=== PATIENT | female | born 1955 | race Caucasian/White ===

== ENCOUNTER 2019-12-03 13:10 | Inpatient (IN) | payer MEDICARE, SELFPAY ==
--- NOTE | ~2019-12-03 | XR_ITS ---
EXAMINATION: XR abdomen/kub 1V DATE: 12/18/2019 05:29 INDICATION: Small bowel obstruction. TECHNIQUE: A supine view of the abdomen was obtained. COMPARISON: Abdomen single view 12/17/2019 FINDINGS: There are multiple dilated loops of small bowel. The colon is decompressed. There is a perc utaneous drain in the pelvis. There are suture anchors in the pubic bones. IMPRESSION: 1. Dilated small bowel, consistent with small bowel obstruction. Reviewed, dictated and finalized at location A. COMMANDER
--- NOTE | ~2019-12-03 | XR_ITS ---
EXAMINATION: XR abdomen/kub 1V INDICATION: Small bowel obstruction TECHNIQUE: Supine view of the abdomen is obtained. COMPARISON: 12/08/2019 FINDINGS: The nasogastric tube is in the stomach. Enteric contrast material from small bowel follow-t hrough is seen and appears to remain within the small bowel. No significant colonic contrast is ident ified. There are multiple dilated loops of small bowel. Foci of free intraperitoneal gas persist. IMPRESSION: 1. Small bowel obstruction. 2. Persistent free intraperitoneal gas. Reviewed, dictated and finalized at location A. SAGE INSTRUCTOR
--- NOTE | ~2019-12-03 | XR_ITS ---
XR chest 1V portable DATE: 12/03/2019 16:06 INDICATION: Cough, shortness of breath, abdominal pain TECHNIQUE: Portable upright AP chest on 12/03/2019 at 1554 hours COMPARISON: 11/29/2021 view chest FINDINGS: A nasogastric tube is present in the proximal stomach, the proximal port approximately 3.5 cm distal to the diaphragmatic hiatus. Normal heart size. There is aortic calcification and unfolding. No hilar or mediastinal enlargement i s evident. There is prominent elevation the right leaf of the diaphragm and/or subpulmonic pleural effusion on t he right, new since 11/29/2019. There are bilateral lower lung infiltrates and/or atelectasis, also new since 11/29/2019. Osteopenia. IMPRESSION: New elevation of right leaf of diaphragm and/or subpulmonic pleural effusion and new bila teral lower lung infiltrates or atelectasis since 11/29/2019 NG tube in proximal stomach Reviewed, dictated and finalized at location B. RVENTIONAL RADIOLOGY TECHNOLOGIST IMPRESSION: New elevation of right leaf of diaphragm and/or subpulmonic pleural effusion and new bilateral lower lung infiltrates or atelectasis since 11/29/19 20 NG tube in proximal stomach
--- NOTE | ~2019-12-03 | CT_ITS ---
EXAMINATION: CT abdomen pelvis w con INDICATION: Cough and lower abdominal pain TECHNIQUE: Computed tomographic images of the abdomen and pelvis were obtained after the administrati on of 100 cc of Omnipaque 350 intravenous contrast. The dose-length product (DLP) was 324.56 mGy-cm. Automated exposure control and iterative reconstruction technique were employed. COMPARISON: None available FINDINGS: There is atelectasis of the visualized lung bases. The heart size is normal. There is a lar ge volume of free intraperitoneal gas predominantly in the upper abdomen. The liver, spleen, pancreas , gallbladder, and adrenal glands are normal. The kidneys are unremarkable. No pathologically enlarge d abdominal or pelvic lymph nodes are identified. There are multiple mildly dilated loops of small shayne wel with a relative transition point in the terminal ileum, which is decompressed. There is gas and s tool within the colon. A small volume of pelvic ascites is noted which also contains gas but to a les ser degree than that of the upper abdomen. Colonic diverticulosis is present without evidence of dive rticulitis. There is severe lumbar spondylosis. IMPRESSION: 1. Free intraperitoneal gas, consistent with perforated viscus. Distribution of gas is suspicious for perforated ulcer of the stomach or duodenum. Surgical evaluation is recommended. 2. Dilated small bowel with relative transition point in the terminal ileum which could reflect ileus or partial obstruction. These findings and recommendations were discussed with Dr. Oumou Jordan MD in the Emergency Departm ent at 1500 hours on 12/03/2019. Reviewed, dictated and finalized at location A. EY RESEARCH MANAGER IMPRESSION: 1. Free intraperitoneal gas, consistent with perforated viscus. Distribution of gas is suspicious for perforated ulcer of the stomach or duodenum. Surgical ev aluation is recommended. 2. Dilated small bowel with relative transition point in the terminal ileum whi ch could reflect ileus or partial obstruction. These findings and recommendations were discussed with Dr. Oumou Jordan MD in the Emergency Department at 1500 hours on 12/03/2019.
--- NOTE | ~2019-12-03 | XR_ITS ---
XR abdomen/kub 1V DATE: 12/11/2019 05:38 INDICATION: Small bowel obstruction TECHNIQUE: Portable supine AP view on 12/11/2019 at 0530 hours COMPARISON: 12/10/2019 KUB at 0707 hours FINDINGS: Since the prior examination the nasogastric tube has been advanced into the distal stomach, the proximal port 3.3 cm distal to the diaphragmatic hiatus. Prominent proximal small bowel gaseous distention is noted, with relative evacuation of the distal shayne wel, consistent with clinical diagnosis of small bowel obstruction. Scoliosis and degenerative changes of the thoracic and particularly lumbar spine. IMPRESSION: NG tube in distal stomach Dilated gas distended small bowel consistent with small bowel obstruction Reviewed, dictated and finalized at Location A. Reviewed, dictated and finalized at location A. DENTURED APPRENTICE
--- NOTE | ~2019-12-03 | XR_ITS ---
EXAMINATION: XR UGI water soluble w sbs DATE: 12/08/2019 16:20 INDICATION: Abdominal distention. Vomiting. TECHNIQUE: The patient drank water-soluble contrast. Fluoroscopy of the esophagus, stomach, and small bowel was performed. Fluoroscopy exposure time was 1.2 minutes. Radiographs of the abdomen were obta ined. The total number of images was 484. COMPARISON: CT abdomen and pelvis 12/03/2019 FINDINGS: UPPER GASTROINTESTINAL SERIES: There is no mass or stricture of the esophagus. Esophageal motility is normal. There is no hiatal her jez. The stomach shows a normal folding pattern. SMALL BOWEL SERIES: There are multiple dilated loops of small bowel. There was no contrast in the colon at 7 hours. The c olon is normal in caliber. Again seen are foci of free intraperitoneal gas. IMPRESSION: 1. Small bowel obstruction. 2. Free intraperitoneal gas, most likely from perforated sigmoid diverticulitis. Reviewed, dictated and finalized at location A. GLAZER IMPRESSION: 1. Small bowel obstruction. 2. Free intraperitoneal gas, most likely from perforated sigmoid diverticulitis .
--- NOTE | ~2019-12-03 | XR_ITS ---
EXAMINATION: XR abdomen NG/feed tube insert DATE: 12/08/2019 17:25 INDICATION: Nasogastric tube placement. TECHNIQUE: An upright view of the abdomen was obtained. COMPARISON: Small bowel series 12/08/2019 FINDINGS: The nasogastric tube tip is in the stomach. There are multiple dilated loops of small bowel containing oral contrast. The lower abdomen is excluded. There is free intraperitoneal gas. There ar e airspace opacities at the lung bases. IMPRESSION: 1. Nasogastric tube tip in the stomach. 2. Dilated small bowel, consistent with small bowel obstruction. 3. Airspace opacities at the lung bases, consistent with atelectasis versus pneumonia. 4. Free intraperitoneal gas, most likely from perforated sigmoid diverticulitis. Reviewed, dictated and finalized at location A. HOUSE SUPERVISOR 3RD SHIFT IMPRESSION: 1. Nasogastric tube tip in the stomach. 2. Dilated small bowel, consistent with small bowel obstruction. 3. Airspace opacities at the lung bases, consistent with atelectasis versus pne umonia. 4. Free intraperitoneal gas, most likely from perforated sigmoid diverticulitis .
--- NOTE | ~2019-12-03 | XR_ITS ---
EXAMINATION: XR abdomen/kub 1V INDICATION: Small bowel obstruction TECHNIQUE: Supine view of the abdomen is obtained. COMPARISON: 12/09/2019 FINDINGS: There are persistently dilated loops of small bowel in the midabdomen. Enteric contrast mat erial from recent small bowel follow-through is now seen in the colon to the level of the rectum. The re are tiny foci of gas in the pelvis which have not significantly changed. There is elevation of the right hemidiaphragm. The nasogastric tube is seen in the distal esophagus approximately 5 cm above t he gastroesophageal junction. IMPRESSION: 1. Persistently dilated loops of small bowel with passage of enteric contrast to the colon, consisten t with ileus versus partial obstruction. 2. Nasogastric tube in the distal esophagus. Recommend advancing at least 10 cm. 3. Tiny foci of gas in the pelvis, consistent with perforated diverticulitis. Reviewed, dictated and finalized at location A. CUTTER IMPRESSION: 1. Persistently dilated loops of small bowel with passage of enteric contrast t o the colon, consistent with ileus versus partial obstruction. 2. Nasogastric tube in the distal esophagus. Recommend advancing at least 10 cm . 3. Tiny foci of gas in the pelvis, consistent with perforated diverticulitis.
--- NOTE | ~2019-12-03 | XR_ITS ---
EXAMINATION: XR abdomen/kub 1V EXAM DATE: 12/07/2019 14:58 INDICATION: Emesis. Perforated diverticulitis, follow-up pneumoperitoneum. TECHNIQUE: Frontal projection(s) of the abdomen for interpretation. Comparison is made to prior exami nation from 12/03. FINDINGS: There is severe jejunal distention, significantly regressed compared to prior study. Could be reactive ileus or small bowel obstruction. Previously seen feeding tube is no longer identified. There is advanced lumbar spondylosis, mild to moderate scoliosis. Can't confidently evaluate for free intraperitoneal gas on supine images. IMPRESSION: Worsening, severely dilated jejunum; ileus or small bowel obstruction. Consider nasogastr ic tube placement. Reviewed, dictated and finalized at location A. R REPLACER IMPRESSION: Worsening, severely dilated jejunum; ileus or small bowel obstructi on. Consider nasogastric tube placement.
--- NOTE | ~2019-12-03 | XR_ITS ---
EXAMINATION: XR abdomen/kub 1V DATE: 12/17/2019 05:46 INDICATION: Small bowel obstruction. TECHNIQUE: A supine view of the abdomen on 2 radiographs was obtained. COMPARISON: Abdomen radiographs 12/16/2019 FINDINGS: There are multiple dilated loops of small bowel. The colon is normal in caliber. A drain ov erlies the pelvis. There are suture anchors in the pubic bones. IMPRESSION: 1. Persistently dilated small bowel, consistent with small bowel obstruction. Reviewed, dictated and finalized at location A. HEALTH CARE WORKER
--- NOTE | ~2019-12-03 | CT_ITS ---
EXAMINATION: CT abdomen pelvis w con EXAM DATE: 12/11/2019 09:34 INDICATION: Low abdominal pain, perforated diverticulitis. Small bowel obstruction. Leukocytosis. TECHNIQUE: Spiral CT of the abdomen and pelvis was performed following intravenous injection of 100 m L Omnipaque 350. Axial, coronal and sagittal images were reviewed. The dose-length product (DLP) fo r this examination was 397.08 mGy-cm. The exposure was tailored according to patient size (auto mA e xposure control), and iterative reconstruction (ASIR) was used as additional dose reduction technique . Comparison is made to prior examination from 12/03/2019. FINDINGS: There is feeding tube in expected position. The liver, spleen, adrenal glands and pancreas are unremarkable. Gallbladder is unremarkable. No biliary obstruction. Portal and splenic veins a re patent. Kidneys enhance symmetrically. There is no hydronephrosis. The uterus is not identifie d and has likely been surgically resected. The bladder is unremarkable. There is no retroperitoneal or pelvic lymphadenopathy. There is irregular shaped abscess, multiple lobulations in the pouch of Conrad, overall deep pelvic region measuring about 7 cm in diameter. Could be amenable to percutaneous right transgluteal pigtail catheter placement for drainage. Gas and fluid within this and within other fingerlike projections e xtending more anteriorly. There is severe edema, inflammation of the small bowel wall passing adjacen t to this abscess causing narrowing, small bowel obstruction. Most of the contrast administered with small bowel series 12/08/2019 remains within the small bowel, but there is also contrast which has mad e it to the colon. The colon is essentially collapsed, decompressed. There is moderate sigmoid divert iculosis. Previously seen free intraperitoneal gas has resolved. Normal appendix. There has been interval development of small right, trace left pleural effusions. There is segmental right basilar atelectasis, subsegmental left basilar atelectasis. There are no osteoblastic or osteo lytic lesions identified. Moderate thoracolumbar spondylosis. IMPRESSION: 1. Pelvic abscess, inflamed adjacent small bowel loops causing small bowel obstruction with only sma ll amount of contrast from yesterday's small bowel exam making it to collapsed colon. Would be amenab le to transgluteal percutaneous drainage. 2. Small right, trace left pleural effusions. Reviewed, dictated and finalized at location B. TAILER IMPRESSION: 1. Pelvic abscess, inflamed adjacent small bowel loops causing small bowel obs truction with only small amount of contrast from yesterday's small bowel exam m aking it to collapsed colon. Would be amenable to transgluteal percutaneous cole inage. 2. Small right, trace left pleural effusions.
--- NOTE | ~2019-12-03 | XR_ITS ---
EXAMINATION: XR abdomen/kub 1V DATE: 12/16/2019 06:02 INDICATION: Small bowel obstruction. TECHNIQUE: A supine view of the abdomen on 2 radiographs was obtained. COMPARISON: Chest single view 12/14/2019 FINDINGS: There are multiple dilated loops of small bowel. The colon is decompressed. There is a drai n in the pelvis. The nasogastric tube tip is in the stomach. There are suture anchors in the pubic shayne junaid. IMPRESSION: 1. Persistently dilated small bowel, consistent with small bowel obstruction. Reviewed, dictated and finalized at location A. R STRIPPER
--- NOTE | ~2019-12-03 | XR_ITS ---
XR abdomen/kub 1V 12/14/2019 06:17 Indication: Small bowel obstruction Procedure: KUB Comparison: Comparison to multiple prior studies sequentially, with oldest reviewed study dated 12/11. Findings: NG tube in the stomach. There are dilated small bowel loops located centrally in the abdome n, compatible with obstruction. There is a drainage catheter overlying the pelvis. Colonic diverticul a noted. Impression: 1: Persistent dilated small bowel, compatible with obstruction. No significant change. Reviewed, dictated and finalized at location A. ETING SPECIALIST Impression: 1: Persistent dilated small bowel, compatible with obstruction. No significant change.
--- NOTE | ~2019-12-03 | XR_ITS ---
EXAMINATION: XR abdomen/kub 1V DATE: 12/12/2019 13:15 INDICATION: Small bowel obstruction. TECHNIQUE: A supine view of the abdomen was obtained. COMPARISON: Abdomen radiograph 12/12/2019 FINDINGS: There are multiple dilated loops of small bowel. The colon is decompressed. There are diver ticula of the colon. The nasogastric tube tip is in the stomach. A drain overlies the pelvis. There a re suture anchors in the pubic bones. IMPRESSION: 1. Persistently dilated small bowel, consistent with small bowel obstruction. Reviewed, dictated and finalized at location A. VE DIRECTORY ADMINISTRATOR
--- NOTE | ~2019-12-03 | XR_ITS ---
EXAMINATION: XR UGI water soluble w sbs EXAM DATE: 12/15/2019 13:02 INDICATION: Small bowel obstruction. Pelvic abscess, dilated small bowel loops. TECHNIQUE: Water-soluble upper GI examination was performed. The DAP for this procedure was 18 Gycm 2. Correlation is made to CT 12/11/2019. FINDINGS: Total of 400 mL Omnipaque 350 solution was injected through the nasogastric tube confirmed in place prior to procedure. Dairy Clerk image also demonstrates right-sided transgluteal pelvic drain. Unremarkable stomach. At 30 minutes some contrast is identified within the proximal part of mildly di lated jejunum. At 1 hours time moderately to severely dilated jejunum and proximal ileum also opacifi ed. At the 1.5 and 2 hour images there is further opacification these distended loops. On the three-h our image some normal calibered distal ileum identified and contrast throughout the colon to the rect osigmoid. Patient tolerated the exam well, did not become nauseated with stomach being distended from contrast. IMPRESSION: Moderate to severe mid small bowel dilation with mildly delayed transit time of about 2. 5 hours. Ileus and/or partial obstruction. Reviewed, dictated and finalized at location A. OR WEB SERVICES DEVELOPER IMPRESSION: Moderate to severe mid small bowel dilation with mildly delayed tr ansit time of about 2.5 hours. Ileus and/or partial obstruction.
--- NOTE | ~2019-12-03 | XR_ITS ---
EXAMINATION: XR abdomen NG/feed tube insert EXAM DATE: 12/03/2019 16:05 INDICATION: Feeding tube placement. TECHNIQUE: Frontal projection(s) of the abdomen for interpretation. There is no prior study for della smith. FINDINGS: There is free intraperitoneal gas below the right hemidiaphragm. Feeding tube tip, side-por t project over gastric cardia, expected location. Multiple loops of moderately distended air-filled s mall bowel are present. There is some bibasilar linear airspace disease. Contrast in the renal collec ting systems. There is no organomegaly. There are bony degenerative changes. IMPRESSION: 1. Feeding tube overlying expected position. 2. Free intraperitoneal gas. 3. Moderately dilated small bowel. Reviewed, dictated and finalized at location A. ON GIN YARD SUPERVISOR
--- NOTE | ~2019-12-03 | XR_ITS ---
EXAMINATION: XR abdomen/kub 1V DATE: 12/16/2019 14:59 INDICATION: Small bowel obstruction. TECHNIQUE: A supine view of the abdomen was obtained. COMPARISON: Abdomen radiographs 12/16/2019 at 5:45 AM FINDINGS: There are multiple dilated loops of small bowel. The colon is normal in caliber. A drain ov erlies the pelvis. There are suture anchors in the pubic bones. IMPRESSION: 1. Persistently dilated small bowel, consistent with small bowel obstruction. Reviewed, dictated and finalized at location A. TRUCTION OR LEAK GANG LABORER
--- NOTE | ~2019-12-03 | CT_ITS ---
EXAMINATION: CT guide absc cath placement DATE: 12/11/2019 15:01 INDICATION: Pelvic abscess. TECHNIQUE: The procedure including the risks, benefits, and alternatives was discussed with the patie nt. Risks discussed included bleeding and infection. The patient understood the risks and benefits an d agreed to proceed. The patient was confirmed to be receiving appropriate antibiotic coverage. The skin overlying the abdomen was prepped and draped in usual sterile fashion. Anesthetic was administe red with 1% lidocaine subcutaneously. Moderate sedation was achieved with 1 mg Versed IV and 50 mcg f entanyl IV. An 18 gauge trochar needle was inserted into the pelvic abscess with CT guidance. The nee dle was exchanged over a wire for 6 Honduran, 8 Honduran, and 9 Honduran dilators and then for an 8.5 Frenc h pigtail catheter. The catheter was stitched to the skin, and a sterile dressing was applied. The mA was adjusted according to patient size. Iterative reconstruction technique was employed. The dose-le ngth product was 103.43 mGy-cm. There were no immediate complications. FINDINGS: CT images demonstrate the catheter within the fluid collection. 15 mL fluid was aspirated f or testing. IMPRESSION: 1. Successful CT-guided pelvic abscess drainage. 2. 15 mL opaque, cedeno fluid was sent for aerobic and anaerobic cultures. Reviewed, dictated and finalized at location A. TRY PICKER
--- NOTE | ~2019-12-03 | XR_ITS ---
EXAMINATION: XR abdomen NG/feed tube rechec INDICATION: Repositioned nasogastric tube TECHNIQUE: Portable AP KUB-NG at 0718 hours COMPARISON: 0536 hours FINDINGS: The repositioned nasogastric tube ends in the stomach. There is a right upper extremity PIC C which ends with its tip in the right atrium. Multiple dilated loops of small bowel are again seen a nd unchanged. Enteric contrast material from recent small bowel follow-through is noted and is seen i n the colon. IMPRESSION: 1. Nasogastric tube advanced into the stomach. 2. Right upper extremity PICC ending with its tip in the right atrium. 3. Unchanged small bowel dilatation, consistent with ileus versus partial obstruction. Reviewed, dictated and finalized at location A. TENANCE TECH IMPRESSION: 1. Nasogastric tube advanced into the stomach. 2. Right upper extremity PICC ending with its tip in the right atrium. 3. Unchanged small bowel dilatation, consistent with ileus versus partial obstr uction.
--- NOTE | ~2019-12-03 | XR_ITS ---
EXAMINATION: XR abdomen/kub 1V INDICATION: Small bowel obstruction TECHNIQUE: Supine view of the abdomen is obtained. COMPARISON: 12/11/2019 FINDINGS: The nasogastric tube is in the stomach. Intravenous catheter is been placed in the right pe lvis. There are a few persistently dilated loops of small bowel however, a moderate amount of previou sly seen small bowel enteric contrast has passed into the large bowel and is seen at the rectum. Mult iple diverticula are noted in the sigmoid colon. Severe lumbar spondylosis is noted. IMPRESSION: 1. Persistently dilated loops of small bowel with interval passage of enteric contrast into the large bowel which may reflect ileus versus partial obstruction. 2. Interval placement of a drainage catheter into the right pelvis. Reviewed, dictated and finalized at location A. COM ASSISTANT IMPRESSION: 1. Persistently dilated loops of small bowel with interval passage of enteric c ontrast into the large bowel which may reflect ileus versus partial obstruction . 2. Interval placement of a drainage catheter into the right pelvis.
--- NOTE | ~2019-12-03 | XR_ITS ---
EXAMINATION: XR abdomen/kub 1V DATE: 12/13/2019 13:28 INDICATION: Small bowel obstruction. TECHNIQUE: A supine view of the abdomen was obtained. COMPARISON: Abdomen radiograph 12/12/2019 FINDINGS: There are multiple dilated loops of small bowel. There are diverticula in the distal colon. There is a percutaneous drain in the pelvis. The nasogastric tube tip is in the stomach. IMPRESSION: 1. Persistently dilated small bowel, consistent with small bowel obstruction. Reviewed, dictated and finalized at location A. T ENERGY SPECIALIST
[2019-12-03 13:30] VITALS: BP 113/67; PULSE 87; RESP 16; TEMP 36.1; O2SAT 96
[2019-12-03 13:44] LABS: Basophils Percent Auto 0.2 % (0.2-1.2); Hematocrit 42.5 % (37.0-47.0); Hemoglobin 14.5 g/dL (12.0-15.0); Immature Granulocyte Absolute 0.02 K/mm3 (0.00-0.031); Immature Granulocyte Percent A 0.2 % (0-0.5); Lymphocytes Absolute Auto 0.66 K/mm3 (0.9-3.2); Lymphocytes Percent Auto 6.6 % (18.3-44.2); Mean Corpuscular HGB Conc 34.1 g/dl (32-36); Mean Corpuscular Hemoglobin 32.4 pg (26-34); Mean Corpuscular Volume 94.9 fl (80-100); Mean Platelet Volume 8.4 fl (7.4-10.4); Monocytes Absolute Auto 0.4 K/mm3 (0.1-0.6); Monocytes Percent Auto 3.8 % (2.6-8.5); Neutrophils Percent Auto 89.2 % (45.5-73.1); Platelet Count Result 338 k/mm3 (150-375); Red Blood Count 4.48 M/mm3 (4.2-5.4); Red Cell Distribution Width 12.6 % (11.5-14.5)
--- NOTE | 2019-12-03 13:57 | ED.ABDPAIN ---
HPI - Abdominal Pain General Chief Complaint: Abdominal Pain Stated Complaint: COUGH, ABD PAIN X MONTHS Time Seen by Provider: 12/03/19 13:55 Source: patient Mode of arrival: EMS Limitations: no limitations History of Present Illness HPI narrative: The pt is a 64 y/o female who presents to the ED, via EMS, with c/o lower ABD pain that began 2 days ago. The pt describes her ABD pain as a sharp non-radiating pain and rates it an 8/10. Nothing has made her pain better or worse and she has not tried taking any medications for it prior to her arrival to the ED. The pt reports CP, cough, SOB, fever, and N/V/D. She states that she was seen at the Urgent Care in [place] 4 days ago for her cough and SOB, where her chest XR came back negative. The pt does not smoke. MD elicited complaint: abdominal pain (lower) Onset (ago): day(s) (2) Location: other (lower ABD) Pain scale (0-10): 8 Quality: sharp Radiation: none Exacerbating factors: nothing Relieving factors: nothing Associated symptoms: nausea, vomiting, diarrhea, fever and other (CP, cough, SOB) Treatments prior to arrival: other (none) Related Data Allergies Allergy/AdvReac Type Severity Reaction Status Date / Time No Known Allergies Allergy Verified 11/29/19 10:51 Review of Systems Review of Systems: All systems reviewed & are unremarkable except as noted in HPI and below Constitutional: Constitutional: Reports fever(s) Cardiovascular: Cardiovascular: Reports chest pain Respiratory: Respiratory: Reports cough and Reports dyspnea Gastrointestinal: Gastrointestinal: Reports abdominal pain (lower), Reports diarrhea, Reports nausea and Reports vomiting PMFSH Past Medical History Medical History Arthritis hands and feet Epistaxis Hallux rigidus rt Hammer toes, bilateral Surgical History Surgical History H/O breast biopsy H/O tubal ligation H/O: hysterectomy History of bladder suspension procedure Hx of breast implants, bilateral with removal Hx of colonoscopy Hx of foot surgery rt foot Family History Family History Mother Hypertension Cerebrovascular accident Family history of transient ischemic attacks Family history of arthritis Family history of kidney disease Family history of aortic aneurysm Father Carcinoma of colon Family history of lung cancer Acute myocardial infarction Sibling Diabetes mellitus Family history of chronic obstructive pulmonary disease Family history of congestive heart failure Social History Social History Smoking status: Former smoker Second hand tobacco smoke exposure: No Smoking end date: 11/12/82 Alcohol intake: current Drinks per week: 5 Substance use: never Gender identity (if verbalized by the patient): Female Spiritual care concerns: No Agree to blood products: Yes Exam Const: General: no acute distress and well developed Orientation/consciousness: oriented to person, oriented to place, oriented to time and patient oriented x3 HENMT: Head: normocephalic Ears: external ears normal General nose exam: Normal external nose present Eyes: General: appearance normal, both eyes and all related structures Conjunctivae: conjunctivae normal Neck: Neck: normal visual inspection and full ROM Chest: Chest palpation & inspection: normal inspection of the chest and no tenderness Resp: Effort & Inspection: normal respiratory effort Auscultation: clear to auscultation bilaterally Cardio: Rate: regular rate Rhythm: regular rhythm GI: GI Palp: Yes abdominal tenderness (generalized) and Yes Soft to palpation Skin: General skin exam: normal color and turgor normal Neuro: General: oriented to person, oriented to place, oriented to time and patient oriented x3 Cognition (Neuro): no
--- NOTE | 2019-12-03 14:00 | ECG_ITS ---
Measurements Intervals [place] Rate: 83 P: 27 IA: 135 QRS: -26 QRSD: 97 T: 9 QT: 360 QTc: 423 Interpretive Statements SINUS RHYTHM EARLY PRECORDIAL R/S TRANSITION VOLTAGE CRITERIA FOR LVH BORDERLINE T WAVE ABNORMALITY- ANT/INF LEADS BASELINE WANDER- V4-V6 BORDERLINE ECG Electronically Signed On 12-03-2019 14:30:36 FABRIC STRETCHER by Master Armenta D.O.
[2019-12-03 14:02] LABS: Alanine Aminotransferase 20 U/L (4-35); Albumin Level 4.3 g/dL (3.5-5.1); Alkaline Phosphatase 80 U/L (38-126); Aspartate Amino Transferase 44 U/L (14-36); Bilirubin,Total 0.9 mg/dL (0.2-1.3); Blood Urea Nitrogen 33 mg/dL (7-17); Calcium 9.3 mg/dL (8.4-10.2); Carbon Dioxide 24 mmol/L (22-30); Chloride 89 mmol/L (98-107); Estimated CRCL calculation 34 ml/min; Estimated Glomerular Filt Rate 45; Glucose 174 mg/dL (65-105); Lipase 27 U/L (23-300); Sodium 129 mmol/L (137-145)
[2019-12-03 14:25] LABS: Add Urine Microscopic? YES; Appearance Urine Cloudy (Clear); Bacteria Urine Trace /hpf; Bilirubin Urine Negative (Negative); Blood Urine 2+ (Negative); Color Urine Yellow (Yellow); Glucose Urine UA Negative (Negative); Ketones Urine Trace mg/dL (Negative); Leukocyte Esterase Ur Negative LEU/UL (Negative); Mucus Urine Rare /lpf; Nitrate Urine Negative (Negative); Protein Urine 2+ mg/dL (Negative); RBC Urine 0-2 /hpf (0-2); Specific Grav Ur 1.024 (1.001-1.035); Squamous Epithelial Cell Urine Few /hpf (Few); Urobilinogen Urine Negative mg/dL (<2.0); WBC Urine 0-3 /hpf
[2019-12-03 14:47] LABS: Troponin I 0.014 ng/mL (0.000-0.034)
[2019-12-03] MEDS: SODIUM CHLORIDE 0.9% IV 1,000 ML 999 ML IV CONT (15:00)
[2019-12-03] MEDS: ERTAPENEM 1 GM/NS 50 ML 1 GM/50 ML BAG IVPB (15:08)
[2019-12-03 15:49] LABS: Lactic Acid Reflex 1.2 mmol/L (0.7-2.1)
--- NOTE | 2019-12-03 16:43 | PM.CNGS ---
Assessment and Plan Assessment and plan (1) Acute diverticulitis: Code(s): K57.92 - Diverticulitis of intestine, part unspecified, without perforation or abscess without bleeding Status: Acute Assessment and Plan: abdominal exam looks better than her CT scan does. She has bowel sounds in some tenderness but not a rigid abdomen or an acute surgical abdomen. There is quite a bit of free air throughout the abdomen but this seems to be from diverticulitis rather than a perforated ulcer. She may have some degree of ileus as well. I discussed this with the patient. We will DC her NG tube But keep her NPO except ice chips. Analgesics will be given. Will follow her with serial exams labs and x-rays as needed. Hopefully this will resolve with medical treatment. She would be high risk for surgery with her current lung condition. (2) Right lower lobe pneumonia: Code(s): J18.9 - Pneumonia, unspecified organism Status: Acute Assessment and Plan: Suggested on CT scan of the abdomen despite the negative chest x-ray done on November 29 at with [address] I discussed with Naya, hospitalist, who will be seeing her. Antibiotics will be started for her diverticulitis and should cover pneumonia as well. 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 She began her illness about 5 days before [place]. She started having a severe cough. She went to [facility] on 11/06/2019. She was diagnosed with a viral bronchitis. She was treated with a Medrol Dosepak ipratropium nasal spray and vertex an AC cough syrup. Her cough did not improve. She went to the [facility] on November 29, 2019 with persistent cough requesting a chest x-ray. The chest x-ray was negative. She has it was treated with Tessalon Perles, albuterol inhaler p.r.n. and another codeine based cough syrup. The cough continued and was particularly bad last weekend up to current. She started having abdominal pain when she coughed on Sunday, 2 days ago. Then yesterday the abdominal pain was persistent even when not coughing. Her abdominal pain is primarily in the lower abdomen, in a band across the abdomen. She has not had any nausea or vomiting. She has not had much appetite. She did notice some fever to 101? yesterday and 100.8? today. She was afebrile in the emergency room. She was noted to have a white blood cell count of 10,000. CT scan was done and initially was read as a possible perforated ulcer. After reviewing the CT scan myself with the radiologist, it appears more likely that she has acute diverticulitis with perforation and free air as well as probably a right lower lobe pneumonia. She is being admitted now for IV antibiotic therapy to the hospitalist service. I will follow her for diverticulitis and its management surgically. Review of Systems Review of Systems: All systems reviewed & are unremarkable except as noted in HPI and below Constitutional: Constitutional: Reports body ache(s), Reports chills, Reports fever(s), Reports lethargy, Reports poor appetite and Reports weakness Cardiovascular: Cardiovascular: Denies chest pain, Denies diaphoresis, Denies dyspnea and Denies paroxysmal nocturnal dyspnea Respiratory: Respiratory: Reports as per HPI, Reports chest congestion, Reports cough, Reports dyspnea and Reports wheezing Gastrointestinal: Gastrointestinal: Reports early satiety ( Poor appetite), Reports loose stools and Denies vomiting Integumentary/Breasts: Skin/Breast: Denies lesions and Denies rash PMFSH Past Medical History Medical History Arthritis hands and feet Epistaxis Hallux rigidus rt Hammer toes, bilateral Surgical His
[2019-12-03 16:51] LABS: Troponin I < 0.012 ng/mL (0.000-0.034)
[2019-12-03 17:22] VITALS: BP 108/72; PULSE 87; O2SAT 94
--- NOTE | 2019-12-03 17:37 | PC.NURSE ---
This patient, Alysha Silva, was admitted to Medical Room 340-01. Patient/family oriented to hospital policies and general routines including ID bracelet, bed and alarms, visiting hours, pain management, procedures, bathroom and other care routines, personal items, smoking policy, room service/diet, and visiting hours. Valuables list has been completed. Information on how to activate the Rapid Response Team has been discussed. Patient/Family are encouraged to report perceived risks to care and to ask questions if they do not understand what they are told or what they should do.
[2019-12-03 17:38] VITALS: BMI 23.3
[2019-12-03] MEDS: MORPHINE SULFATE 4 MG/ML INJ IV PUSH (18:16)
[2019-12-03] MEDS: SODIUM CHLORIDE 0.9% IV 1,000 ML 100 ML IV CONT (18:20)
--- NOTE | 2019-12-03 19:45 | PM.IMHP ---
H&P: HPI History of Present Illness Chief complaint: Lower abdominal pain Narrative: This is a pleasant 64-year-old female who is not known to take any medications at home and who presented today to the hospital with a complaint of bilateral lower abdominal pain for the past 2-3 days with associated fever. The patient describes that since she has had a persistent hacking cough. She was seen at urgent care and diagnosed with bronchitis. She was seen at the [facility] this past weekend and had a chest x-ray performed which was negative. She was sent home with codeine cough syrup and an albuterol inhaler. Approximately 3 days ago she started to wake up having fevers nauseated and did vomit once. Her T-max was 101.8? F she also noticed that she started to have lower abdominal pain approximately 2-3 days ago. She initially thought that her abdominal pain was related to her persistent hacking coughing. She had an episode of diarrhea 2 days ago but this has resolved. Her last meal was yesterday. Today the patient also experienced mild right upper chest discomfort when she coughed and decided to come to the emergency room to be evaluated. Chest x-ray was repeated today in the emergency room which demonstrated new elevation of right leaf of diaphragm and/or subpulmonic pleural effusion and new bilateral lower lung infiltrates or atelectasis since 11/29/2019. CT abdomen pelvis demonstrated free intraperitoneal gas, consistent with perforated viscus. Distribution of gas is suspicious for perforated ulcer of the stomach or duodenum. Dilated small bowel with relative transition point in the terminal ileum which could reflect ileus or partial obstruction. Review of Systems Review of Systems: All systems reviewed & are unremarkable except as noted in HPI and below PMFSH Past Medical History Medical History Arthritis hands and feet Epistaxis Hallux rigidus rt Hammer toes, bilateral Surgical History Surgical History H/O breast biopsy H/O tubal ligation H/O: hysterectomy History of bladder suspension procedure Hx of breast implants, bilateral with removal Hx of colonoscopy Hx of foot surgery rt foot Family History Family History Mother Hypertension Cerebrovascular accident Family history of transient ischemic attacks Family history of arthritis Family history of kidney disease Family history of aortic aneurysm Father Carcinoma of colon Family history of lung cancer Acute myocardial infarction Sibling Diabetes mellitus Family history of chronic obstructive pulmonary disease Family history of congestive heart failure Social History Social History Smoking status: Former smoker Second hand tobacco smoke exposure: No Smoking end date: 11/12/82 Alcohol intake: current Drinks per week: 5 Substance use: never Gender identity (if verbalized by the patient): Female Spiritual care concerns: No Agree to blood products: Yes Meds Home Medications and Allergies Home Medications Medication Instructions Recorded Confirmed Type albuterol sulfate 2 puff INHALATION QID PRN #8 gm 11/29/19 12/03/19 Rx benzonatate [Tessalon Perles] 100 mg PO TID PRN #20 cap 11/29/19 12/03/19 Rx codeine-guaifenesin 5 ml PO Q4-6H PRN #473 ml 11/29/19 12/03/19 Rx Allergies Allergy/AdvReac Type Severity Reaction Status Date / Time No Known Allergies Allergy Verified 11/29/19 10:51 Vital Signs Vital Signs - 24 hr 12/03/19 13:30 12/03/19 17:22 Temperature 36.1 C L Pulse Rate 87 87 Respiratory Rate 16 Blood Pressure 113/67 108/72 Pulse Oximetry 96 94 Exam Const: General: cooperative, no acute distress, alert and awake Nutritional Appearance: well nourished Orientation/c
[2019-12-03 20:13] LABS: Troponin I < 0.012 ng/mL (0.000-0.034)
[2019-12-03] MEDS: FAMOTIDINE 20 MG/2 ML VIAL IV PUSH (20:20)
[2019-12-03 20:22] VITALS: PULSE 87; RESP 16; O2SAT 94
[2019-12-03 20:40] VITALS: PULSE 84; RESP 16
[2019-12-03] MEDS: IPRATROPIUM BR 0.02% INH SOLN 0.5 MG/2.5 ML VIAL INHALATION (20:40)
[2019-12-03] MEDS: ALBUTEROL SULFATE NEB 2.5 MG/0.5 ML INH 5 MG INHALATION (20:40)
[2019-12-03 20:50] VITALS: PULSE 84; RESP 16
[2019-12-03] MEDS: ONDANSETRON INJ 4 MG/2 ML VIAL IV PUSH (21:46)
[2019-12-03 22:00] VITALS: BP 105/62; PULSE 78; RESP 16; TEMP 36.1; O2SAT 92
[2019-12-04] VITALS (9 sets, daily range): BP systolic 104–120; BP diastolic 59–74; PULSE 75–87; RESP 16–20; TEMP 36.3–36.6; O2SAT 92–93
[2019-12-04] MEDS: MORPHINE SULFATE 4 MG/ML INJ IV PUSH ×2 (01:42→05:59)
[2019-12-04] MEDS: ONDANSETRON INJ 4 MG/2 ML VIAL IV PUSH ×2 (01:43→05:59)
[2019-12-04] MEDS: ALBUTEROL SULFATE NEB 2.5 MG/0.5 ML INH 5 MG INHALATION ×3 (02:00→21:01)
[2019-12-04] MEDS: IPRATROPIUM BR 0.02% INH SOLN 0.5 MG/2.5 ML VIAL INHALATION ×3 (02:00→21:02)
[2019-12-04] MEDS: SODIUM CHLORIDE 0.9% IV 1,000 ML 100 ML IV CONT ×2 (05:59→17:42)
[2019-12-04 06:16] LABS: Basophils Percent Auto 0.1 % (0.2-1.2); Hematocrit 38.2 % (37.0-47.0); Hemoglobin 12.9 g/dL (12.0-15.0); Immature Granulocyte Absolute 0.02 K/mm3 (0.00-0.031); Immature Granulocyte Percent A 0.3 % (0-0.5); Lymphocytes Absolute Auto 0.59 K/mm3 (0.9-3.2); Lymphocytes Percent Auto 8.2 % (18.3-44.2); Mean Corpuscular HGB Conc 33.8 g/dl (32-36); Mean Corpuscular Hemoglobin 32.5 pg (26-34); Mean Corpuscular Volume 96.2 fl (80-100); Mean Platelet Volume 8.4 fl (7.4-10.4); Monocytes Absolute Auto 0.3 K/mm3 (0.1-0.6); Monocytes Percent Auto 4.2 % (2.6-8.5); Neutrophils Absolute Auto 6.3 K/mm3 (1.3-6.7); Neutrophils Percent Auto 87.2 % (45.5-73.1); Platelet Count Result 285 k/mm3 (150-375); Red Blood Count 3.97 M/mm3 (4.2-5.4); Red Cell Distribution Width 12.8 % (11.5-14.5); White Blood Count 7.2 K/mm3 (4.5-10.0)
[2019-12-04 06:30] LABS: Blood Urea Nitrogen 25 mg/dL (7-17); Calcium 8.5 mg/dL (8.4-10.2); Carbon Dioxide 25 mmol/L (22-30); Chloride 94 mmol/L (98-107); Estimated CRCL calculation 50 ml/min; Estimated Glomerular Filt Rate > 60; Glucose 134 mg/dL (65-105); Potassium 3.8 mmol/L (3.4-5.0); Sodium 131 mmol/L (137-145)
--- NOTE | 2019-12-04 08:05 | PM.PNGS ---
Progress Note: A&P Assessment and Plan (1) Acute diverticulitis: Code(s): K57.92 - Diverticulitis of intestine, part unspecified, without perforation or abscess without bleeding Status: Acute Assessment and Plan: Abdominal pain as about the same. She is taking some morphine through the night. Morphine is controlling the pain quite well. White blood cell count has decreased to 7000. Bowel sounds are hypoactive this morning. She is grinder tender predominantly in the right mid abdomen. It is possibly a little less tender although she has had morphine this morning about 6:00 a.m.. Will start scheduled dose of IV ibuprofen and hopefully this will reduce narcotic use. Continue to follow serial exams labs. Continue IV Zosyn. Continue bowel rest except sips of water and ice chips. (2) Pneumoperitoneum: Code(s): K66.8 - Other specified disorders of peritoneum Status: Acute Assessment and Plan: Most likely due to acute diverticulitis as noted above. (3) Right lower lobe pneumonia: Code(s): J18.9 - Pneumonia, unspecified organism Status: Acute Assessment and Plan: Seems to be coughing less this morning although she has decreased breath sounds at both bases and some crackles bilaterally. Chest x-ray noted. Continue Zosyn and Azithromycin. Subjective Subjective Date/Time Seen: 12/04/19 08:05 No new complaints. Feels a little better. Took 2 doses of IV morphine 4 mg each through the night. Last was about 6:00 a.m. this morning. Coughing seems to be a little better. Abdominal pain seems about the same. Review of Systems Review of Systems: All systems reviewed & are unremarkable except as noted in HPI and below Constitutional: Constitutional: Denies headache(s) ENT: Denies headache(s) Cardiovascular: Cardiovascular: Denies chest pain, Denies rapid heart rate and Denies lightheadedness Respiratory: Respiratory: Reports as per HPI, Reports cough and Reports wheezing Gastrointestinal: Gastrointestinal: Reports as per HPI Neurologic: Denies confusion and Denies headache(s) Psychiatric: Psychiatric: Denies confusion Exam Const: General: comfortable and no acute distress; No confusion Orientation/consciousness: patient oriented x3 and No confusion Resp: Effort & Inspection: normal respiratory effort, Actively coughing ( Does not seem to be coughing as much as she was last night.) and not labored Auscultation: crackles bilateral, rales bilateral and diminished lung sounds bilateral in the lower lung carrizales Cardio: Rate: regular rate Rhythm: regular rhythm GI: Inspection: normal to inspection and non-distended GI Palp: Yes Soft to palpation, Yes Tenderness to palpation present (GI) ( Mostly right mid abdomen but also RLQ and LLQ), No Guarding due to palpation present (GI) and No Rebound tenderness present Auscultation: Hypoactive bowel sounds present Skin: General skin exam: normal color ( COLOR IS BETTER. NO LONGER APPEARS BRO OR MOTTLED) and no mottling Neuro: General: patient oriented x3, no focal motor deficits and No confusion Extrem: General: no calf tenderness and no edema Psych: Affect: normal affect Insight: Good insight present (Psych) Judgement: Good judgement present (Psych) Objective Data Vital Signs Vital Signs: Vital Signs - 24 hr 12/03/19 13:30 12/03/19 17:22 12/03/19 20:22 Temperature 36.1 C L Pulse Rate 87 87 87 Respiratory Rate 16 16 Blood Pressure 113/67 108/72 Pulse Oximetry 96 94 94 12/03/19 20:40 12/03/19 20:50 12/03/19 22:00 Temperature 36.1 C L Pulse Rate 84 84 78 Respiratory Rate 16 16 16 Blood Pressure 105/62 Pulse Oximetry 92 12/04/19 02:00 12/04/19 02:10 12/04/19 06:00 Temperature 36.6 C Pulse Rate 86 87 85 Respiratory Rate 16 16 16 Blood Pressure 120/74 Pulse Oximetry 92 Intake/Output Intake/Output: Intake & Output 12/01/19 12/02/19 12/03/19 12/04/19 23:59 23:59 23:59 2
[2019-12-04] MEDS: ENOXAPARIN 40 MG/0.4 ML SYRINGE SUB-Q (08:07)
[2019-12-04] MEDS: FAMOTIDINE 20 MG/2 ML VIAL IV PUSH ×2 (08:07→21:16)
[2019-12-04 08:57] LABS: Hemoglobin A1C 6.2 % (<5.7)
--- NOTE | 2019-12-04 09:39 | PM.IMPN ---
Progress Note: A&P Assessment and Plan (1) Acute diverticulitis: Code(s): K57.92 - Diverticulitis of intestine, part unspecified, without perforation or abscess without bleeding Status: Acute Assessment and Plan: Day 2 zosyn Improving clinically (2) Right lower lobe pneumonia: Code(s): J18.9 - Pneumonia, unspecified organism Status: Acute Assessment and Plan: Day 2 Zithromax & Zosyn (3) Pneumoperitoneum: Code(s): K66.8 - Other specified disorders of peritoneum Status: Acute Assessment and Plan: Due to diverticulitis Attempting conservative management (4) Impaired glucose tolerance: Code(s): R73.02 - Impaired glucose tolerance (oral) Status: Acute Assessment and Plan: Fam Hx diabetes (sister) 12/04 D/w pt need for diabetic diet and increased activity when clinically able Monitor sugars in the mean time Subjective Date/time seen: 12/04/19 09:39 Interval history: Hx about one mo cough, yellow sputum. 3 days CLERICAL INVESTIGATOR lower abd pain, then fever to 101. Loose stool x 1 12/03. 12/04 Less lower abdominal pain. Less cough. No n/v. No cp or sob. No wheezing. Review of Systems Review of Systems: All systems reviewed & are unremarkable except as noted in HPI and below Exam Narrative: Exam Narrative: HEENT: EOMI, PERRL, pharyngeal mucosa pink and intact NECK: No JVD CHEST: Decr BS and crackles RLL. Normal effort. HEART: NL S1/S2, regular, no murmur ABDOMEN: hypoactive BS, protuberant but soft, diffusely tender with mild rebound, no guarding EXTREMITIES: No cyanosis, edema, or clubbing NEUROLOGIC: CN intact and symmetric to inspection. MUSCULOSKELETAL: Tone and strength symmetric. PSYCH: Alert. Oriented to person, place, and time. Objective Data Vital Signs Vital Signs: Vital Signs - 24 hr 12/03/19 13:30 12/03/19 17:22 12/03/19 20:22 Temperature 96.9 F L Pulse Rate 87 87 87 Respiratory Rate 16 16 Blood Pressure 113/67 108/72 Pulse Oximetry 96 94 94 12/03/19 20:40 12/03/19 20:50 12/03/19 22:00 Temperature 97.0 F L Pulse Rate 84 84 78 Respiratory Rate 16 16 16 Blood Pressure 105/62 Pulse Oximetry 92 12/04/19 02:00 12/04/19 02:10 12/04/19 06:00 Temperature 97.8 F Pulse Rate 86 87 85 Respiratory Rate 16 16 16 Blood Pressure 120/74 Pulse Oximetry 92 Intake/Output Intake/Output: Intake & Output 12/01/19 12/02/19 12/03/19 12/04/19 23:59 23:59 23:59 23:59 Intake Total 1350 1000 Output Total 60 150 Balance 1290 850 Meds/Results Medications: Active Medications Generic Name Dose Route Start Last Admin Trade Name Freq PRN Reason Stop Dose Admin Acetaminophen 1,000 mg 12/04/19 08:03 Tylenol Tablet PO Q6H PRN Mild Pain (1-3) or Fever Albuterol 5 mg 12/03/19 20:00 12/04/19 07:40 Albuterol Sulf Neb 2.5mg/0.5ml INHALATION Not Given Q6HRT DINESH Enoxaparin Sodium 40 mg 12/04/19 09:00 12/04/19 08:07 Lovenox SUB-Q 40 mg DAILY DINESH Administration Famotidine 20 mg 12/03/19 21:00 12/04/19 08:07 Pepcid Iv IV PUSH 20 mg Q12HR DINESH Administration Sodium Chloride 1,000 mls @ 100 mls/hr 12/03/19 16:35 12/04/19 05:59 Normal Saline Iv IV CONT 100 mls/hr .Q10H DINESH Administration Azithromycin 500 mg in 250 mls @ 250 mls/hr 12/03/19 21:00 12/03/19 21:30 Zithromax IVPB Infused Q24H DINESH Infusion Ibuprofen 800 mg in 200 mls @ 400 mls/hr 12/04/19 09:00 Caldolor 800 Mg/200 Ml IVPB Q6H DINESH Ipratropium [place] 0.5 mg 12/03/19 20:00 12/04/19 07:40 Atrovent Neb INHALATION Not Given Q6HRT DINESH Morphine Sulfate 2 mg 12/03/19 17:03 Morphine Sulfate Inj IV PUSH Q2H PRN Pain Rated 4-6 Morphine Sulfate 4 mg 12/03/19 17:03 12/04/19 05:59 Morphine Sulfate Inj IV PUSH 4 mg Q2H PRN Administration Pain Rated 7-10 Naloxone HCl 0.1 mg 12/03/19 17:03 Narcan IV PUSH Q2M PRN Opiate Reversal
[2019-12-04] MEDS: IBUPROFEN IV 800 MG/200 ML 800 MG/200 ML BAG 400 MG IVPB ×3 (09:47→21:15)
--- NOTE | 2019-12-04 12:57 | WPDCDIQUERY2 ---
CDI Query Clarification Request - Dr Cabrera documented, After reviewing the CT scan myself with the radiologist, it appears more likely that she has acute diverticulitis with perforation and free air. -Pneumoperitoneum due to diverticulitis documented - Acute diverticulitis without perforation is on problem list Please clarify if the acute diverticulitis is with or without perforation.
[2019-12-05] VITALS (10 sets, daily range): BP systolic 110–130; BP diastolic 67–78; PULSE 79–95; RESP 16–18; TEMP 36.1–36.8; O2SAT 93–96
[2019-12-05] MEDS: IBUPROFEN IV 800 MG/200 ML 800 MG/200 ML BAG 400 MG IVPB ×3 (03:02→16:14)
[2019-12-05 05:22] LABS: Hematocrit 33.8 % (37.0-47.0); Hemoglobin 11.3 g/dL (12.0-15.0); Immature Granulocyte Absolute 0.03 K/mm3 (0.00-0.031); Immature Granulocyte Percent A 0.4 % (0-0.5); Lymphocytes Absolute Auto 0.66 K/mm3 (0.9-3.2); Lymphocytes Percent Auto 9.9 % (18.3-44.2); Mean Corpuscular HGB Conc 33.4 g/dl (32-36); Mean Corpuscular Hemoglobin 32.8 pg (26-34); Mean Platelet Volume 8.5 fl (7.4-10.4); Monocytes Absolute Auto 0.3 K/mm3 (0.1-0.6); Monocytes Percent Auto 4.8 % (2.6-8.5); Neutrophils Absolute Auto 5.7 K/mm3 (1.3-6.7); Neutrophils Percent Auto 84.9 % (45.5-73.1); Platelet Count Result 279 k/mm3 (150-375); Red Blood Count 3.45 M/mm3 (4.2-5.4); Red Cell Distribution Width 12.9 % (11.5-14.5); White Blood Count 6.7 K/mm3 (4.5-10.0)
[2019-12-05 05:33] LABS: Blood Urea Nitrogen 17 mg/dL (7-17); Calcium 8.2 mg/dL (8.4-10.2); Carbon Dioxide 25 mmol/L (22-30); Chloride 98 mmol/L (98-107); Estimated CRCL calculation 56 ml/min; Estimated Glomerular Filt Rate > 60; Glucose 118 mg/dL (65-105); Potassium 3.1 mmol/L (3.4-5.0); Sodium 134 mmol/L (137-145)
[2019-12-05] MEDS: FAMOTIDINE 20 MG TABLET PO (08:34)
[2019-12-05] MEDS: ENOXAPARIN 40 MG/0.4 ML SYRINGE SUB-Q (08:35)
[2019-12-05] MEDS: POTASSIUM CHLORIDE 20 MEQ TABLET.ER 40 MEQ PO ×2 (08:36→16:28)
--- NOTE | 2019-12-05 09:32 | PM.PNGS ---
Progress Note: A&P Assessment and Plan (1) Acute diverticulitis: Code(s): K57.92 - Diverticulitis of intestine, part unspecified, without perforation or abscess without bleeding Status: Acute Assessment and Plan: Continues to improve. Continue IV ibuprofen scheduled dose. Start clear liquids. Only concern is that she seems a little distended. No nausea and did have a bowel movement yesterday. Continue IV Zosyn antibiotics. (2) Pneumoperitoneum: Code(s): K66.8 - Other specified disorders of peritoneum Status: Acute Assessment and Plan: Appears to be due to diverticulitis. (3) Right lower lobe pneumonia: Code(s): J18.9 - Pneumonia, unspecified organism Status: Acute Assessment and Plan: On Zosyn in a is a thrombolysis in. Seems to be coughing less. Subjective Subjective Date/Time Seen: 12/05/19 09:32 having less abdominal pain. Receiving scheduled dose of IV ibuprofen. Not requiring additional narcotics at all. Had a small bowel movement. No nausea. Still a little abdominal pain when coughs but definitely better even when coughing. Review of Systems Review of Systems: All systems reviewed & are unremarkable except as noted in HPI and below Constitutional: Constitutional: Denies headache(s) ENT: Denies headache(s) Cardiovascular: Cardiovascular: Denies chest pain and Denies dyspnea Respiratory: Respiratory: Reports cough ( Less coughing.) and Reports pain with cough ( Less abdominal pain when does cough.) Gastrointestinal: Gastrointestinal: Reports as per HPI Neurologic: Denies confusion and Denies headache(s) Psychiatric: Psychiatric: Denies confusion Exam Const: General: comfortable and no acute distress; No confusion Orientation/consciousness: patient oriented x3 and No confusion Resp: Effort & Inspection: normal respiratory effort Auscultation: rales bilateral at the base and diminished lung sounds Cardio: Rate: regular rate Rhythm: regular rhythm GI: Inspection: distended GI Palp: Yes Firmness to palpation present (GI), Yes Tenderness to palpation present (GI) ( Less tender than yesterday. Abdomen is a little more firm.), No Guarding due to palpation present (GI) and No Rebound tenderness present Auscultation: normal bowel sounds ( Active normal bowel sounds on auscultation today.) Neuro: General: patient oriented x3, no focal motor deficits and No confusion Extrem: General: no calf tenderness and no edema Psych: Affect: normal affect Insight: Good insight present (Psych) Judgement: Good judgement present (Psych) Objective Data Vital Signs Vital Signs: Vital Signs - 24 hr 12/04/19 14:00 12/04/19 14:38 12/04/19 14:45 Temperature 36.3 C L Pulse Rate 78 80 84 Respiratory Rate 18 20 20 Blood Pressure 114/63 Pulse Oximetry 93 12/04/19 21:01 12/04/19 21:09 12/04/19 22:00 Temperature 36.4 C L Pulse Rate 77 75 85 Respiratory Rate 16 16 16 Blood Pressure 104/59 L Pulse Oximetry 92 12/05/19 06:00 Temperature 36.2 C L Pulse Rate 84 Respiratory Rate 16 Blood Pressure 110/74 Pulse Oximetry 96 Intake/Output Intake/Output: Intake & Output 12/02/19 12/03/19 12/04/19 12/05/19 23:59 23:59 23:59 23:59 Intake Total 1350 2840 700 Output Total 60 150 200 Balance 1290 2690 500 Meds/Results Medications: Active Medications Generic Name Dose Route Start Last Admin Trade Name Freq PRN Reason Stop Dose Admin Acetaminophen 1,000 mg 12/04/19 08:03 Tylenol Tablet PO Q6H PRN Mild Pain (1-3) or Fever Albuterol 5 mg 12/03/19 20:00 12/05/19 03:29 Albuterol Sulf Neb 2.5mg/0.5ml INHALATION Not Given Q6HRT DINESH Enoxaparin Sodium 40 mg 12/04/19 09:00 12/05/19 08:35 Lovenox SUB-Q 40 mg DAILY DINESH Administration Famotidine 20 mg 12/05/19 09:00 12/05/19 08:34 Pepcid PO 20 mg Q12HR DINESH Administration Azithromycin 500 mg in 250 mls @ 250 mls/hr
[2019-12-05] MEDS: MORPHINE SULFATE 2 MG/ML INJ IV PUSH (09:46)
[2019-12-05] MEDS: ALBUTEROL SULFATE NEB 2.5 MG/0.5 ML INH 5 MG INHALATION ×3 (10:06→20:03)
[2019-12-05] MEDS: IPRATROPIUM BR 0.02% INH SOLN 0.5 MG/2.5 ML VIAL INHALATION ×3 (10:06→20:03)
[2019-12-05] MEDS: KCL 30 MEQ/0.9% SOD CHL 1,000 ML 100 ML IV CONT (11:48)
--- NOTE | 2019-12-05 13:27 | PM.IMPN ---
Progress Note: A&P Assessment and Plan (1) Diverticulitis large intestine: Qualifiers: Diverticulitis bleeding: without bleeding Diverticulitis complication: with perforation Qualified Code(s): K57.20 - Diverticulitis of large intestine with perforation and abscess without bleeding Code(s): K57.32 - Diverticulitis of large intestine without perforation or abscess without bleeding Status: Acute Assessment and Plan: with perforation, but without abscess Day 3 zosyn Improving clinically Continue conservative management. (2) Right lower lobe pneumonia: Qualifiers: Pneumonia type: due to unspecified organism Qualified Code(s): J18.9 - Pneumonia, unspecified organism Code(s): J18.9 - Pneumonia, unspecified organism Status: Acute Assessment and Plan: Day 3 Zithromax & Zosyn Clinically improving (3) Pneumoperitoneum: Code(s): K66.8 - Other specified disorders of peritoneum Status: Acute Assessment and Plan: Due to diverticulitis Attempting conservative management (4) Impaired glucose tolerance: Code(s): R73.02 - Impaired glucose tolerance (oral) Status: Acute Assessment and Plan: Fam Hx diabetes (sister) 12/04 D/w pt need for diabetic diet and increased activity when clinically able Monitor sugars in the mean time 12/05 FBS 118 (5) Hypokalemia: Code(s): E87.6 - Hypokalemia Status: Acute Assessment and Plan: 12/05 added KCL to IVF F/u lab Subjective Date/time seen: 12/05/19 13:28 Interval history: Hx about one mo cough, yellow sputum. 3 days [employer] lower abd pain, then fever to 101. Loose stool x 1 12/03. 12/04 Less lower abdominal pain. Less cough. No n/v. No cp or sob. No wheezing. 12/05 Minimal lower abdominal pain. Tolerating clear liquids. Passed flatus but no stool. Minimal cough. Review of Systems Review of Systems: All systems reviewed & are unremarkable except as noted in HPI and below Exam Narrative: Exam Narrative: HEENT: EOMI, PERRL, pharyngeal mucosa pink and intact NECK: No JVD CHEST: Decr BS and crackles RLL. Normal effort. HEART: NL S1/S2, regular, no murmur ABDOMEN: hypoactive BS, protuberant but soft, diffusely tender to DEEP palpation with NO rebound, no guarding EXTREMITIES: No cyanosis, edema, or clubbing NEUROLOGIC: CN intact and symmetric to inspection. MUSCULOSKELETAL: Tone and strength symmetric. PSYCH: Alert. Oriented to person, place, and time. Objective Data Vital Signs Vital Signs: Vital Signs - 24 hr 12/04/19 14:00 12/04/19 14:38 12/04/19 14:45 Temperature 97.4 F L Pulse Rate 78 80 84 Respiratory Rate 18 20 20 Blood Pressure 114/63 Pulse Oximetry 93 12/04/19 21:01 12/04/19 21:09 12/04/19 22:00 Temperature 97.5 F L Pulse Rate 77 75 85 Respiratory Rate 16 16 16 Blood Pressure 104/59 L Pulse Oximetry 92 12/05/19 06:00 12/05/19 10:08 12/05/19 10:18 Temperature 97.2 F L Pulse Rate 84 79 79 Respiratory Rate 16 18 18 Blood Pressure 110/74 Pulse Oximetry 96 Intake/Output Intake/Output: Intake & Output 12/02/19 12/03/19 12/04/19 12/05/19 23:59 23:59 23:59 23:59 Intake Total 1350 2840 1400 Output Total 60 150 200 Balance 1290 2690 1200 Meds/Results Medications: Active Medications Generic Name Dose Route Start Last Admin Trade Name Freq PRN Reason Stop Dose Admin Acetaminophen 1,000 mg 12/04/19 08:03 Tylenol Tablet PO Q6H PRN Mild Pain (1-3) or Fever Albuterol 5 mg 12/03/19 20:00 12/05/19 10:06 Albuterol Sulf Neb 2.5mg/0.5ml INHALATION 5 mg Q6HRT DINESH Administration Enoxaparin Sodium 40 mg 12/04/19 09:00 12/05/19 08:35 Lovenox SUB-Q 40 mg DAILY DINESH Administration Famotidine 20 mg 12/05/19 09:00 12/05/19 08:34 Pepcid PO 20 mg Q12HR DINESH Administration Azithromycin 500 mg in 250 mls @ 250 mls/hr 12/03/19 21:00 12/04/19 23:00 Zithromax IVPB Inf
[2019-12-05 14:55] LABS: Blood Urea Nitrogen 13 mg/dL (7-17); Calcium 8.3 mg/dL (8.4-10.2); Carbon Dioxide 25 mmol/L (22-30); Chloride 102 mmol/L (98-107); Estimated CRCL calculation 65 ml/min; Estimated Glomerular Filt Rate > 60; Glucose 127 mg/dL (65-105); Potassium 4.3 mmol/L (3.4-5.0); Sodium 135 mmol/L (137-145)
[2019-12-06] VITALS (11 sets, daily range): BP systolic 147–151; BP diastolic 79–99; PULSE 79–107; RESP 16–22; TEMP 36.3–36.4; O2SAT 93–97
[2019-12-06] MEDS: FAMOTIDINE 20 MG TABLET PO ×3 (00:33→20:59)
[2019-12-06] MEDS: IBUPROFEN IV 800 MG/200 ML 800 MG/200 ML BAG 400 MG IVPB ×4 (00:56→21:07)
[2019-12-06] MEDS: ALBUTEROL SULFATE NEB 2.5 MG/0.5 ML INH 5 MG INHALATION ×4 (01:35→21:33)
[2019-12-06] MEDS: IPRATROPIUM BR 0.02% INH SOLN 0.5 MG/2.5 ML VIAL INHALATION ×4 (01:35→21:33)
[2019-12-06 06:04] LABS: Hematocrit 35.8 % (37.0-47.0); Hemoglobin 11.6 g/dL (12.0-15.0); Mean Corpuscular HGB Conc 32.4 g/dl (32-36); Mean Corpuscular Volume 98.9 fl (80-100); Mean Platelet Volume 8.8 fl (7.4-10.4); Platelet Count Result 372 k/mm3 (150-375); Red Blood Count 3.62 M/mm3 (4.2-5.4); White Blood Count 9.7 K/mm3 (4.5-10.0)
[2019-12-06 06:12] LABS: Blood Urea Nitrogen 8 mg/dL (7-17); Calcium 8.7 mg/dL (8.4-10.2); Carbon Dioxide 23 mmol/L (22-30); Chloride 100 mmol/L (98-107); Estimated CRCL calculation 76 ml/min; Estimated Glomerular Filt Rate > 60; Glucose 115 mg/dL (65-105); Magnesium 1.9 mg/dL (1.6-2.3); Sodium 133 mmol/L (137-145)
--- NOTE | 2019-12-06 09:08 | PM.IMPN ---
Progress Note: A&P Assessment and Plan (1) Diverticulitis large intestine: Qualifiers: Diverticulitis bleeding: without bleeding Diverticulitis complication: with perforation Qualified Code(s): K57.20 - Diverticulitis of large intestine with perforation and abscess without bleeding Code(s): K57.32 - Diverticulitis of large intestine without perforation or abscess without bleeding Status: Acute Assessment and Plan: with perforation, but without abscess Day 4 zosyn Improving clinically Continue conservative management. (2) Right lower lobe pneumonia: Qualifiers: Pneumonia type: due to unspecified organism Qualified Code(s): J18.9 - Pneumonia, unspecified organism Code(s): J18.9 - Pneumonia, unspecified organism Status: Acute Assessment and Plan: Day 4 Zithromax & Zosyn Clinically improving (3) Pneumoperitoneum: Code(s): K66.8 - Other specified disorders of peritoneum Status: Acute Assessment and Plan: Due to diverticulitis Attempting conservative management (4) Impaired glucose tolerance: Code(s): R73.02 - Impaired glucose tolerance (oral) Status: Acute Assessment and Plan: Fam Hx diabetes (sister) 12/04 D/w pt need for diabetic diet and increased activity when clinically able Monitor sugars in the mean time 12/05 FBS 118 12/06 FBS 115 (5) Hypokalemia: Code(s): E87.6 - Hypokalemia Status: Acute Assessment and Plan: 12/05 added KCL to IVF 12/06 K 4.0 Subjective Date/time seen: 12/06/19 09:08 Interval history: Hx about one mo cough, yellow sputum. 3 days [employer] lower abd pain, then fever to 101. Loose stool x 1 12/03. 12/04 Less lower abdominal pain. Less cough. No n/v. No cp or sob. No wheezing. 12/05 Minimal lower abdominal pain. Tolerating clear liquids. Passed flatus but no stool. Minimal cough. 12/06 Still with cough. Lower abdomen hurts only with cough. Bowels moved. Tolerating clear liquids. But everything is too sweet or too salty. Wants something different. Exam Narrative: Exam Narrative: HEENT: EOMI, PERRL, pharyngeal mucosa pink and intact NECK: No JVD CHEST: Decr BS and crackles RLL. Normal effort. HEART: NL S1/S2, regular, no murmur ABDOMEN: hypoactive BS, protuberant but soft, diffusely tender to DEEP palpation with NO rebound, no guarding EXTREMITIES: No cyanosis, edema, or clubbing NEUROLOGIC: CN intact and symmetric to inspection. MUSCULOSKELETAL: Tone and strength symmetric. PSYCH: Alert. Oriented to person, place, and time. Objective Data Vital Signs Vital Signs: Vital Signs - 24 hr 12/05/19 10:08 12/05/19 10:18 12/05/19 14:00 Temperature 96.9 F L Pulse Rate 79 79 86 Respiratory Rate 18 18 16 Blood Pressure 117/78 Pulse Oximetry 93 12/05/19 14:25 12/05/19 14:32 12/05/19 20:05 Temperature Pulse Rate 88 89 87 Respiratory Rate 16 16 16 Blood Pressure Pulse Oximetry 12/05/19 20:17 12/05/19 20:59 12/06/19 01:35 Temperature 98.2 F Pulse Rate 93 95 79 Respiratory Rate 18 16 18 Blood Pressure 130/67 Pulse Oximetry 93 12/06/19 05:49 Temperature 97.5 F L Pulse Rate 94 Respiratory Rate 16 Blood Pressure 147/79 H Pulse Oximetry 97 Intake/Output Intake/Output: Intake & Output 12/03/19 12/04/19 12/05/19 12/06/19 23:59 23:59 23:59 23:59 Intake Total 1350 2840 3250 1100 Output Total 60 150 400 300 Balance 1290 2690 2850 800 Meds/Results Medications: Active Medications Generic Name Dose Route Start Last Admin Trade Name Freq PRN Reason Stop Dose Admin Acetaminophen 1,000 mg 12/04/19 08:03 Tylenol Tablet PO Q6H PRN Mild Pain (1-3) or Fever Albuterol 5 mg 12/03/19 20:00 12/06/19 01:35 Albuterol Sulf Neb 2.5mg/0.5ml INHALATION 5 mg Q6HRT DINESH Administration Enoxaparin Sodium 40 mg 12/04/19 09:00 12/05/19 08:35 Lovenox SUB-Q 40 mg DAILY DINESH Administration Famotidine 20 mg 0
[2019-12-06] MEDS: POTASSIUM CHLORIDE 20 MEQ TABLET.ER 40 MEQ PO ×2 (09:47→16:39)
[2019-12-06] MEDS: ENOXAPARIN 40 MG/0.4 ML SYRINGE SUB-Q (09:47)
[2019-12-06] MEDS: ACETAMINOPHEN 500 MG TABLET 1000 MG PO (09:55)
[2019-12-06] MEDS: KCL 30 MEQ/0.9% SOD CHL 1,000 ML 100 ML IV CONT ×2 (11:04→21:08)
--- NOTE | 2019-12-06 13:59 | PM.PNGS ---
Progress Note: A&P Assessment and Plan (1) Diverticulitis large intestine: Qualifiers: Diverticulitis bleeding: without bleeding Diverticulitis complication: with perforation Qualified Code(s): K57.20 - Diverticulitis of large intestine with perforation and abscess without bleeding Code(s): K57.32 - Diverticulitis of large intestine without perforation or abscess without bleeding Status: Acute Assessment and Plan: patient is not showing any worsening signs of peritonitis. Afebrile and normal white blood count. Will advanced to full liquid diet today. Repeat labs in a.m., and add CRP level. (2) Pneumoperitoneum: Code(s): K66.8 - Other specified disorders of peritoneum Status: Acute (3) Right lower lobe pneumonia: Qualifiers: Pneumonia type: due to unspecified organism Qualified Code(s): J18.9 - Pneumonia, unspecified organism Code(s): J18.9 - Pneumonia, unspecified organism Status: Acute Subjective Subjective Date/Time Seen: 12/06/19 14:00 Interval history: Abdominal pain less. Having bowel movements. Tolerating clear liquids without any nausea or vomiting. Exam GI: Inspection: distended GI Palp: Yes Tenderness to palpation present (GI) ( Slight lower abdominal tenderness to palpation), No Guarding due to palpation present (GI) and No Rebound tenderness present Percussion: Yes normal to percussion Auscultation: normal bowel sounds Other: still mildly distended Objective Data Vital Signs Vital Signs: Vital Signs - 24 hr 12/05/19 14:25 12/05/19 14:32 12/05/19 20:05 Temperature Pulse Rate 88 89 87 Respiratory Rate 16 16 16 Blood Pressure Pulse Oximetry 12/05/19 20:17 12/05/19 20:59 12/06/19 01:35 Temperature 36.8 C Pulse Rate 93 95 79 Respiratory Rate 18 16 18 Blood Pressure 130/67 Pulse Oximetry 93 12/06/19 05:49 12/06/19 09:41 12/06/19 09:51 Temperature 36.4 C L Pulse Rate 94 91 83 Respiratory Rate 16 20 20 Blood Pressure 147/79 H Pulse Oximetry 97 Intake/Output Intake/Output: Intake & Output 12/03/19 12/04/19 12/05/19 12/06/19 23:59 23:59 23:59 23:59 Intake Total 1350 2840 3250 2360 Output Total 60 150 400 300 Balance 1290 2690 2850 2060 Meds/Results Medications: Active Medications Generic Name Dose Route Start Last Admin Trade Name Freq PRN Reason Stop Dose Admin Acetaminophen 1,000 mg 12/04/19 08:03 12/06/19 09:55 Tylenol Tablet PO 1,000 mg Q6H PRN Administration Mild Pain (1-3) or Fever Albuterol 5 mg 12/03/19 20:00 12/06/19 09:41 Albuterol Sulf Neb 2.5mg/0.5ml INHALATION 5 mg Q6HRT DINESH Administration Enoxaparin Sodium 40 mg 12/04/19 09:00 12/06/19 09:47 Lovenox SUB-Q 40 mg DAILY DINESH Administration Famotidine 20 mg 12/05/19 09:00 12/06/19 09:47 Pepcid PO 20 mg Q12HR DINESH Administration Azithromycin 500 mg in 250 mls @ 250 mls/hr 12/03/19 21:00 12/06/19 02:57 Zithromax IVPB Infused Q24H DINESH Infusion Ibuprofen 800 mg in 200 mls @ 400 mls/hr 12/04/19 09:00 12/06/19 10:11 Caldolor 800 Mg/200 Ml IVPB Infused Q6H DINESH Infusion Potassium Chloride/Sodium Chloride 1,000 mls @ 100 mls/hr 12/05/19 12:30 12/06/19 11:04 Kcl 30 Meq/Ns IV CONT 100 mls/hr .Q10H DINESH Administration Ipratropium [place] 0.5 mg 12/03/19 20:00 12/06/19 09:41 Atrovent Neb INHALATION 0.5 mg Q6HRT DINESH Administration Morphine Sulfate 2 mg 12/03/19 17:03 12/05/19 09:46 Morphine Sulfate Inj IV PUSH 2 mg Q2H PRN Administration Pain Rated 4-6 Morphine Sulfate 4 mg 12/03/19 17:03 12/04/19 05:59 Morphine Sulfate Inj IV PUSH 4 mg Q2H PRN Administration Pain Rated 7-10 Naloxone HCl 0.1 mg 12/03/19 17:03 Narcan IV PUSH Q2M PRN Opiate Reversal Ondansetron HCl 4 mg 12/03/19 17:03 12/04/19 05:59 Zofran Inj IV PUSH 4 mg Q4H PRN Administration Nausea And Vomiting P
[2019-12-07] VITALS (9 sets, daily range): BP systolic 127–141; BP diastolic 90–96; PULSE 80–115; RESP 18–23; TEMP 36.7–37.3; O2SAT 90–98
[2019-12-07] MEDS: ALBUTEROL SULFATE NEB 2.5 MG/0.5 ML INH 5 MG INHALATION ×4 (01:51→21:25)
[2019-12-07] MEDS: IPRATROPIUM BR 0.02% INH SOLN 0.5 MG/2.5 ML VIAL INHALATION ×4 (01:51→21:25)
[2019-12-07] MEDS: IBUPROFEN IV 800 MG/200 ML 800 MG/200 ML BAG 400 MG IVPB ×4 (03:56→21:52)
[2019-12-07 06:08] LABS: Hematocrit 36.6 % (37.0-47.0); Hemoglobin 12.1 g/dL (12.0-15.0); Mean Corpuscular HGB Conc 33.1 g/dl (32-36); Mean Corpuscular Hemoglobin 32.3 pg (26-34); Mean Corpuscular Volume 97.6 fl (80-100); Mean Platelet Volume 8.5 fl (7.4-10.4); Platelet Count Result 463 k/mm3 (150-375); Red Blood Count 3.75 M/mm3 (4.2-5.4); Red Cell Distribution Width 13.1 % (11.5-14.5); White Blood Count 10.6 K/mm3 (4.5-10.0)
[2019-12-07 06:26] LABS: Blood Urea Nitrogen 5 mg/dL (7-17); Calcium 8.6 mg/dL (8.4-10.2); Carbon Dioxide 22 mmol/L (22-30); Chloride 98 mmol/L (98-107); Estimated CRCL calculation 93 ml/min; Estimated Glomerular Filt Rate > 60; Glucose 117 mg/dL (65-105); Potassium 4.5 mmol/L (3.4-5.0); Sodium 132 mmol/L (137-145)
[2019-12-07 06:44] LABS: CRP 12.6 mg/dL (<1.0)
[2019-12-07] MEDS: ENOXAPARIN 40 MG/0.4 ML SYRINGE SUB-Q (09:26)
[2019-12-07] MEDS: FAMOTIDINE 20 MG TABLET PO (09:27)
[2019-12-07] MEDS: POTASSIUM CHLORIDE 20 MEQ TABLET.ER 40 MEQ PO (09:27)
[2019-12-07] MEDS: KCL 30 MEQ/0.9% SOD CHL 1,000 ML 100 ML IV CONT (11:15)
--- NOTE | 2019-12-07 11:53 | PM.PNGS ---
Progress Note: A&P Assessment and Plan (1) Diverticulitis of large intestine with perforation: Qualifiers: Diverticulitis bleeding: without bleeding Qualified Code(s): K57.20 - Diverticulitis of large intestine with perforation and abscess without bleeding Code(s): K57.20 - Diverticulitis of large intestine with perforation and abscess without bleeding Status: Acute Assessment and Plan: Slowly advancing diet WBC still elevated, will repeat tomorrow Possibly home if WBC normal tomorrow and able to advance to low fiber diet (2) Right lower lobe pneumonia: Qualifiers: Pneumonia type: due to unspecified organism Qualified Code(s): J18.9 - Pneumonia, unspecified organism Code(s): J18.9 - Pneumonia, unspecified organism Status: Acute Subjective Subjective Date/Time Seen: 12/07/19 11:53 Pain slowly improving but still a little bloated. Bowels moving. Exam GI: Inspection: distended GI Palp: No Tenderness to palpation present (GI) and No Guarding due to palpation present (GI) Objective Data Vital Signs Vital Signs: Vital Signs - 24 hr 12/06/19 14:00 12/06/19 14:53 12/06/19 15:02 Temperature 36.4 C Pulse Rate 95 79 92 Respiratory Rate 16 18 20 Blood Pressure 151/88 H Pulse Oximetry 95 12/06/19 21:34 12/06/19 21:42 12/06/19 22:00 Temperature 36.3 C L Pulse Rate 88 84 107 H Respiratory Rate 18 18 22 H Blood Pressure 149/99 H Pulse Oximetry 93 12/07/19 01:52 12/07/19 05:28 12/07/19 07:48 Temperature 36.7 C Pulse Rate 81 107 H 80 Respiratory Rate 18 23 H 20 Blood Pressure 141/96 H Pulse Oximetry 98 12/07/19 08:00 12/07/19 08:05 Temperature Pulse Rate 80 80 Respiratory Rate 20 20 Blood Pressure Pulse Oximetry 98 Intake/Output Intake/Output: Intake & Output 12/04/19 12/05/19 12/06/19 12/07/19 23:59 23:59 23:59 23:59 Intake Total 2840 3250 4880 1700 Output Total 056 689 7392 Balance 2690 2850 3480 1700 Meds/Results Medications: Active Medications Generic Name Dose Route Start Last Admin Trade Name Freq PRN Reason Stop Dose Admin Acetaminophen 1,000 mg 12/04/19 08:03 12/06/19 09:55 Tylenol Tablet PO 1,000 mg Q6H PRN Administration Mild Pain (1-3) or Fever Albuterol 5 mg 12/03/19 20:00 12/07/19 07:47 Albuterol Sulf Neb 2.5mg/0.5ml INHALATION 5 mg Q6HRT DINESH Administration Enoxaparin Sodium 40 mg 12/04/19 09:00 12/07/19 09:26 Lovenox SUB-Q 40 mg DAILY DINESH Administration Famotidine 20 mg 12/05/19 09:00 12/07/19 09:27 Pepcid PO 20 mg Q12HR DINESH Administration Azithromycin 500 mg in 250 mls @ 250 mls/hr 12/03/19 21:00 12/06/19 21:02 Zithromax IVPB 250 mls/hr Q24H DINESH Administration Ibuprofen 800 mg in 200 mls @ 400 mls/hr 12/04/19 09:00 12/07/19 09:17 Caldolor 800 Mg/200 Ml IVPB 400 mls/hr Q6H DINESH Administration Potassium Chloride/Sodium Chloride 1,000 mls @ 100 mls/hr 12/05/19 12:30 12/07/19 11:15 Kcl 30 Meq/Ns IV CONT 100 mls/hr .Q10H DINESH Administration Ipratropium [place] 0.5 mg 12/03/19 20:00 12/07/19 07:47 Atrovent Neb INHALATION 0.5 mg Q6HRT DINESH Administration Morphine Sulfate 2 mg 12/03/19 17:03 12/05/19 09:46 Morphine Sulfate Inj IV PUSH 2 mg Q2H PRN Administration Pain Rated 4-6 Morphine Sulfate 4 mg 12/03/19 17:03 12/04/19 05:59 Morphine Sulfate Inj IV PUSH 4 mg Q2H PRN Administration Pain Rated 7-10 Naloxone HCl 0.1 mg 12/03/19 17:03 Narcan IV PUSH Q2M PRN Opiate Reversal Ondansetron HCl 4 mg 12/03/19 17:03 12/04/19 05:59 Zofran Inj IV PUSH 4 mg Q4H PRN Administration Nausea And Vomiting Potassium Chloride 40 meq 12/05/19 08:00 12/07/19 09:27 Kcl Tablet PO 40 meq BIDWM DINESH Administration Radiology Results: ITS Impressions Abdomen/Pelvis CT 12/03/19 14:56 IMPRESSION: 1. Free intraperitoneal gas, consistent with
--- NOTE | 2019-12-07 14:03 | PM.IMPN ---
Progress Note: A&P Assessment and Plan (1) Diverticulitis large intestine: Qualifiers: Diverticulitis bleeding: without bleeding Diverticulitis complication: with perforation Qualified Code(s): K57.20 - Diverticulitis of large intestine with perforation and abscess without bleeding Code(s): K57.32 - Diverticulitis of large intestine without perforation or abscess without bleeding Status: Inactive Assessment and Plan: with perforation, but without abscess Day 5 zosyn Improving clinically Continue conservative management. (2) Right lower lobe pneumonia: Qualifiers: Pneumonia type: due to unspecified organism Qualified Code(s): J18.9 - Pneumonia, unspecified organism Code(s): J18.9 - Pneumonia, unspecified organism Status: Acute Assessment and Plan: Day 5 Zithromax & Zosyn Clinically improving (3) Pneumoperitoneum: Code(s): K66.8 - Other specified disorders of peritoneum Status: Acute Assessment and Plan: Due to diverticulitis Attempting conservative management (4) Impaired glucose tolerance: Code(s): R73.02 - Impaired glucose tolerance (oral) Status: Acute Assessment and Plan: Fam Hx diabetes (sister) 12/04 D/w pt need for diabetic diet and increased activity when clinically able Monitor sugars in the mean time 12/05 FBS 118 12/06 FBS 115 12/07 FBS 117 (5) Hypokalemia: Code(s): E87.6 - Hypokalemia Status: Acute Assessment and Plan: 12/05 added KCL to IVF 12/06 K 4.0 12/07 4.5 Subjective Date/time seen: 12/07/19 14:03 Interval history: Hx about one mo cough, yellow sputum. 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 Loose stool x 1 12/03. 12/04 Less lower abdominal pain. Less cough. No n/v. No cp or sob. No wheezing. 12/05 Minimal lower abdominal pain. Tolerating clear liquids. Passed flatus but no stool. Minimal cough. 12/06 Still with cough. Lower abdomen hurts only with cough. Bowels moved. Tolerating clear liquids. But everything is too sweet or too salty. Wants something different. 12/07 Dry cough. Minimal lower abd pain with coughing. Bowels moved. Tolerating soft foods. Review of Systems Review of Systems: All systems reviewed & are unremarkable except as noted in HPI and below Exam Narrative: Exam Narrative: HEENT: EOMI, PERRL, pharyngeal mucosa pink and intact NECK: No JVD CHEST: Decr BS and crackles RLL. Normal effort. HEART: NL S1/S2, regular, no murmur ABDOMEN: hypoactive BS, protuberant but soft, diffusely tender to DEEP palpation with NO rebound, no guarding EXTREMITIES: No cyanosis, edema, or clubbing NEUROLOGIC: CN intact and symmetric to inspection. MUSCULOSKELETAL: Tone and strength symmetric. PSYCH: Alert. Oriented to person, place, and time. Objective Data Vital Signs Vital Signs: Vital Signs - 24 hr 12/06/19 14:53 12/06/19 15:02 12/06/19 21:34 Temperature Pulse Rate 79 92 88 Respiratory Rate 18 20 18 Blood Pressure Pulse Oximetry 12/06/19 21:42 12/06/19 22:00 12/07/19 01:52 Temperature 97.4 F L Pulse Rate 84 107 H 81 Respiratory Rate 18 22 H 18 Blood Pressure 149/99 H Pulse Oximetry 93 12/07/19 05:28 12/07/19 07:48 12/07/19 08:00 Temperature 98.1 F Pulse Rate 107 H 80 80 Respiratory Rate 23 H 20 20 Blood Pressure 141/96 H Pulse Oximetry 98 98 12/07/19 08:05 Temperature Pulse Rate 80 Respiratory Rate 20 Blood Pressure Pulse Oximetry Intake/Output Intake/Output: Intake & Output 12/04/19 12/05/19 12/06/19 12/07/19 23:59 23:59 23:59 23:59 Intake Total 2840 3250 4880 1700 Output Total 401 918 9634 Balance 2690 2850 3480 1700 Meds/Results Medications: Active Medications Generic Name Dose Route Start Last Admin Trade Name Freq PRN Reason Stop Dose Admin Acetaminophen 1,000 mg 12/04/19 08:03 12/06/19 09:55 Tylenol Tablet PO 1,000 mg Q6H PRN Administration Mild Pain (1-3) or
[2019-12-08] VITALS (11 sets, daily range): BP systolic 130–140; BP diastolic 72–99; PULSE 97–120; RESP 16–20; TEMP 36.6–36.7; O2SAT 94–100
[2019-12-08] MEDS: ALBUTEROL SULFATE NEB 2.5 MG/0.5 ML INH 5 MG INHALATION ×4 (03:37→19:55)
[2019-12-08] MEDS: IPRATROPIUM BR 0.02% INH SOLN 0.5 MG/2.5 ML VIAL INHALATION ×4 (03:37→19:55)
[2019-12-08] MEDS: IBUPROFEN IV 800 MG/200 ML 800 MG/200 ML BAG 400 MG IVPB ×3 (03:38→15:13)
[2019-12-08 05:43] LABS: Hemoglobin 11.7 g/dL (12.0-15.0); Mean Corpuscular HGB Conc 32.5 g/dl (32-36); Mean Corpuscular Volume 98.4 fl (80-100); Mean Platelet Volume 8.7 fl (7.4-10.4); Platelet Count Result 517 k/mm3 (150-375); Red Blood Count 3.66 M/mm3 (4.2-5.4); Red Cell Distribution Width 13.1 % (11.5-14.5); White Blood Count 8.9 K/mm3 (4.5-10.0)
[2019-12-08 05:56] LABS: Blood Urea Nitrogen 8 mg/dL (7-17); Calcium 8.4 mg/dL (8.4-10.2); Carbon Dioxide 24 mmol/L (22-30); Chloride 100 mmol/L (98-107); Estimated CRCL calculation 76 ml/min; Estimated Glomerular Filt Rate > 60; Glucose 120 mg/dL (65-105); Potassium 4.3 mmol/L (3.4-5.0); Sodium 133 mmol/L (137-145)
[2019-12-08 05:57] LABS: CRP 6.1 mg/dL (<1.0)
--- NOTE | 2019-12-08 08:20 | PM.PNGS ---
Progress Note: A&P Assessment and Plan (1) Vomiting: Code(s): R11.10 - Vomiting, unspecified Status: Acute Assessment and Plan: x-rays from yesterday show dilated small intestine. She is a little bit distended. Will get Gastrografin upper GI small-bowel follow-through this morning. If she does have small-bowel obstruction or ileus, she will need NG tube. Continue NPO and IV antibiotics for now. (2) Diverticulitis of large intestine with perforation: Qualifiers: Diverticulitis bleeding: without bleeding Qualified Code(s): K57.20 - Diverticulitis of large intestine with perforation and abscess without bleeding Code(s): K57.20 - Diverticulitis of large intestine with perforation and abscess without bleeding Status: Acute Assessment and Plan: Improving -no further abdominal pain. Still may have small-bowel obstruction as above. (3) Pneumoperitoneum: Code(s): K66.8 - Other specified disorders of peritoneum Status: Acute Assessment and Plan: Probably from diverticulitis as above. (4) Right lower lobe pneumonia: Qualifiers: Pneumonia type: due to unspecified organism Qualified Code(s): J18.9 - Pneumonia, unspecified organism Code(s): J18.9 - Pneumonia, unspecified organism Status: Acute Assessment and Plan: Remains on antibiotics. Not requiring oxygen but still has considerable coughing. Subjective Subjective Date/Time Seen: 12/08/19 08:20 vomited large amount yesterday morning after eating some putting. Says it was too sweet. Has been NPO since then. No further nausea or vomiting. No abdominal pain. Has not been taking any pain medication. Has been having bowel movements although they have been small. Review of Systems Review of Systems: All systems reviewed & are unremarkable except as noted in HPI and below Exam Const: General: comfortable and no acute distress; No confusion Orientation/consciousness: patient oriented x3 and No confusion Resp: Effort & Inspection: normal respiratory effort and Actively coughing ( Still coughing.) dry Cardio: Rate: regular rate Rhythm: regular rhythm GI: Inspection: distended GI Palp: Yes Soft to palpation, No Tenderness to palpation present (GI), No Guarding due to palpation present (GI) and No Rebound tenderness present Neuro: General: patient oriented x3, no focal motor deficits and No confusion Extrem: General: no calf tenderness and no edema Psych: Affect: normal affect Insight: Good insight present (Psych) Judgement: Good judgement present (Psych) Objective Data Vital Signs Vital Signs: Vital Signs - 24 hr 12/07/19 14:00 12/07/19 14:23 12/07/19 21:26 Temperature 37.3 C Pulse Rate 115 H 96 106 H Respiratory Rate 22 H 20 20 Blood Pressure 127/90 Pulse Oximetry 90 12/07/19 21:34 12/08/19 03:37 12/08/19 03:46 Temperature Pulse Rate 108 H 114 H 116 H Respiratory Rate 20 20 20 Blood Pressure Pulse Oximetry 12/08/19 05:09 12/08/19 07:48 12/08/19 08:00 Temperature 36.7 C Pulse Rate 118 H 112 H 110 H Respiratory Rate 20 20 20 Blood Pressure 138/99 H Pulse Oximetry 94 Intake/Output Intake/Output: Intake & Output 12/05/19 12/06/19 12/07/19 12/08/19 23:59 23:59 23:59 23:59 Intake Total 3250 5130 3746 520 Output Total 400 1400 1100 400 Balance 2850 3730 2646 120 Meds/Results Medications: Active Medications Generic Name Dose Route Start Last Admin Trade Name Freq PRN Reason Stop Dose Admin Acetaminophen 1,000 mg 12/04/19 08:03 12/06/19 09:55 Tylenol Tablet PO 1,000 mg Q6H PRN Administration Mild Pain (1-3) or Fever Albuterol 5 mg 12/03/19 20:00 12/08/19 07:48 Albuterol Sulf Neb 2.5mg/0.5ml INHALATION 5 mg Q6HRT DINESH Administration Enoxaparin Sodium 40 mg 12/04/19 09:00 12/07/19 09:26 Lovenox SUB-Q 40 mg DAILY DINESH Administration Famotidine 20 mg 12/05/19 09:00
[2019-12-08] MEDS: ENOXAPARIN 40 MG/0.4 ML SYRINGE SUB-Q (10:12)
--- NOTE | 2019-12-08 13:10 | PM.IMPN ---
Progress Note: A&P Assessment and Plan (1) Diverticulitis large intestine: Qualifiers: Diverticulitis bleeding: without bleeding Diverticulitis complication: with perforation Qualified Code(s): K57.20 - Diverticulitis of large intestine with perforation and abscess without bleeding Code(s): K57.32 - Diverticulitis of large intestine without perforation or abscess without bleeding Status: Inactive Assessment and Plan: with perforation, but without abscess Day 6 zosyn Likely ileus gastrograffin sbft pending (2) Right lower lobe pneumonia: Qualifiers: Pneumonia type: due to unspecified organism Qualified Code(s): J18.9 - Pneumonia, unspecified organism Code(s): J18.9 - Pneumonia, unspecified organism Status: Acute Assessment and Plan: Day 6 Zithromax & Zosyn Clinically improving (3) Pneumoperitoneum: Code(s): K66.8 - Other specified disorders of peritoneum Status: Acute Assessment and Plan: Due to diverticulitis Attempting conservative management (4) Impaired glucose tolerance: Code(s): R73.02 - Impaired glucose tolerance (oral) Status: Acute Assessment and Plan: Fam Hx diabetes (sister) 12/04 D/w pt need for diabetic diet and increased activity when clinically able Monitor sugars in the mean time 12/05 FBS 118 12/06 FBS 115 12/07 FBS 117 12/08 FBS 120 (5) Hypokalemia: Code(s): E87.6 - Hypokalemia Status: Acute Assessment and Plan: 12/05 added KCL to IVF 12/06 K 4.0 12/07 4.5 12/08 4.3 Subjective Date/time seen: 12/08/19 13:10 Interval history: Cough improving. No further emesis. NPO overnight. Abdomen bloated after taking gastrograffin. Still passing stool. Review of Systems Review of Systems: All systems reviewed & are unremarkable except as noted in HPI and below Exam Narrative: Exam Narrative: HEENT: EOMI, PERRL, pharyngeal mucosa pink and intact NECK: No JVD CHEST: Decr BS and crackles RLL. Normal effort. HEART: NL S1/S2, regular, no murmur ABDOMEN: hypoactive BS, protuberant but soft, diffusely tender to DEEP palpation with NO rebound, no guarding EXTREMITIES: No cyanosis, edema, or clubbing NEUROLOGIC: CN intact and symmetric to inspection. MUSCULOSKELETAL: Tone and strength symmetric. PSYCH: Alert. Oriented to person, place, and time. Objective Data Vital Signs Vital Signs: Vital Signs - 24 hr 12/07/19 14:00 12/07/19 14:23 12/07/19 21:26 Temperature 99.2 F Pulse Rate 115 H 96 106 H Respiratory Rate 22 H 20 20 Blood Pressure 127/90 Pulse Oximetry 90 12/07/19 21:34 12/08/19 03:37 12/08/19 03:46 Temperature Pulse Rate 108 H 114 H 116 H Respiratory Rate 20 20 20 Blood Pressure Pulse Oximetry 12/08/19 05:09 12/08/19 07:48 12/08/19 08:00 Temperature 98.1 F Pulse Rate 118 H 112 H 110 H Respiratory Rate 20 20 20 Blood Pressure 138/99 H Pulse Oximetry 94 Intake/Output Intake/Output: Intake & Output 12/05/19 12/06/19 12/07/19 12/08/19 23:59 23:59 23:59 23:59 Intake Total 3250 5130 3746 710 Output Total 400 1400 1100 400 Balance 2850 3730 2646 310 Meds/Results Medications: Active Medications Generic Name Dose Route Start Last Admin Trade Name Freq PRN Reason Stop Dose Admin Acetaminophen 1,000 mg 12/04/19 08:03 12/06/19 09:55 Tylenol Tablet PO 1,000 mg Q6H PRN Administration Mild Pain (1-3) or Fever Albuterol 5 mg 12/03/19 20:00 12/08/19 07:48 Albuterol Sulf Neb 2.5mg/0.5ml INHALATION 5 mg Q6HRT DINESH Administration Enoxaparin Sodium 40 mg 12/04/19 09:00 12/08/19 10:12 Lovenox SUB-Q 40 mg DAILY DINESH Administration Famotidine 20 mg 12/05/19 09:00 12/08/19 09:35 Pepcid PO Not Given Q12HR DINESH Azithromycin 500 mg in 250 mls @ 250 mls/hr 12/03/19 21:00 12/07/19 23:33 Zithromax IVPB Infused Q24H DINESH Infusion Ibuprofen 800 mg in 200 mls @ 400 mls/hr 0
[2019-12-08 17:19] LABS: Partial Thromboplastin Time 27.8 SECONDS (22.3-36.8)
[2019-12-08] MEDS: ONDANSETRON INJ 4 MG/2 ML VIAL IV PUSH (17:22)
[2019-12-08 17:29] LABS: Alanine Aminotransferase 34 U/L (4-35); Albumin Level 3.3 g/dL (3.5-5.1); Alkaline Phosphatase 99 U/L (38-126); Aspartate Amino Transferase 63 U/L (14-36); Bilirubin,Total 0.6 mg/dL (0.2-1.3); Blood Urea Nitrogen 13 mg/dL (7-17); Calcium 9.1 mg/dL (8.4-10.2); Carbon Dioxide 24 mmol/L (22-30); Chloride 99 mmol/L (98-107); Estimated CRCL calculation 76 ml/min; Estimated Glomerular Filt Rate > 60; Glucose 126 mg/dL (65-105); Magnesium 1.8 mg/dL (1.6-2.3); Potassium 3.9 mmol/L (3.4-5.0); Sodium 138 mmol/L (137-145)
[2019-12-08 17:36] LABS: Transferrin 163 mg/dL (206-381)
[2019-12-08 18:07] LABS: Glucose Point of Care 128 (65-105)
[2019-12-08] MEDS: FAT EMULSIONS IV 20% 250 ML 20.8 ML IVPB (20:03)
[2019-12-08] MEDS: FAMOTIDINE 20 MG/2 ML VIAL IV PUSH (20:06)
[2019-12-08] MEDS: AMINO ACIDS 4.25%/D5W/LYTES/CA 2,000 ML 80 ML IV CONT (21:41)
[2019-12-09] VITALS (10 sets, daily range): BP systolic 116–137; BP diastolic 80–89; PULSE 88–105; RESP 14–16; TEMP 36.5–37; O2SAT 92–98; BMI 23.3
[2019-12-09 00:05] LABS: Glucose Point of Care 135 (65-105)
[2019-12-09] MEDS: IPRATROPIUM BR 0.02% INH SOLN 0.5 MG/2.5 ML VIAL INHALATION ×3 (01:14→19:57)
[2019-12-09] MEDS: ALBUTEROL SULFATE NEB 2.5 MG/0.5 ML INH 5 MG INHALATION ×3 (01:14→19:58)
[2019-12-09 04:53] LABS: Glucose Point of Care 137 (65-105)
[2019-12-09 06:10] LABS: Hematocrit 36.2 % (37.0-47.0); Hemoglobin 11.8 g/dL (12.0-15.0); Mean Corpuscular HGB Conc 32.6 g/dl (32-36); Mean Corpuscular Hemoglobin 32.4 pg (26-34); Mean Corpuscular Volume 99.5 fl (80-100); Mean Platelet Volume 8.8 fl (7.4-10.4); Platelet Count Result 598 k/mm3 (150-375); Red Blood Count 3.64 M/mm3 (4.2-5.4); Red Cell Distribution Width 13.2 % (11.5-14.5); White Blood Count 9.7 K/mm3 (4.5-10.0)
[2019-12-09 06:14] LABS: Blood Urea Nitrogen 19 mg/dL (7-17); CRP 3.6 mg/dL (<1.0); Calcium 8.6 mg/dL (8.4-10.2); Carbon Dioxide 28 mmol/L (22-30); Chloride 97 mmol/L (98-107); Estimated CRCL calculation 76 ml/min; Estimated Glomerular Filt Rate > 60; Glucose 138 mg/dL (65-105); Phosphorus 3.7 mg/dL (2.5-4.5); Potassium 3.9 mmol/L (3.4-5.0); Sodium 134 mmol/L (137-145)
--- NOTE | 2019-12-09 08:13 | PM.PNGS ---
Progress Note: A&P Assessment and Plan (1) Small intestine obstruction: Code(s): K56.609 - Unspecified intestinal obstruction, unspecified as to partial versus complete obstruction Status: Acute Assessment and Plan: this has become the primary problem at this point. Her abdominal pain is gone. However her films suggest small-bowel obstruction of a high-grade nature. Will continue NG suction and follow clinically with plain films labs and exams. Will have PICC line placed and start central TPN. Explained that this may require laparotomy. Continue present treatment and hopefully will resolve. (2) Diverticulitis of large intestine with perforation: Qualifiers: Diverticulitis bleeding: without bleeding Qualified Code(s): K57.20 - Diverticulitis of large intestine with perforation and abscess without bleeding Code(s): K57.20 - Diverticulitis of large intestine with perforation and abscess without bleeding Status: Acute Assessment and Plan: Infection improved but will continue Zosyn. (3) Right lower lobe pneumonia: Qualifiers: Pneumonia type: due to unspecified organism Qualified Code(s): J18.9 - Pneumonia, unspecified organism Code(s): J18.9 - Pneumonia, unspecified organism Status: Acute Assessment and Plan: Improved but still has chronic coughing. Pulmonary status is a concern if patient requires laparotomy. Would be at higher risk. Subjective Subjective Date/Time Seen: 12/09/19 08:13 Vomited yesterday after small-bowel series and when NG tube was being placed. Large volume NG output as well after placement. Does feel better this morning after getting a large amount of gastric content relieved with emesis and NG suction. Does have flatus and bowel movement. Review of Systems Review of Systems: All systems reviewed & are unremarkable except as noted in HPI and below Constitutional: Constitutional: Denies headache(s) ENT: Denies headache(s) Cardiovascular: Cardiovascular: Denies chest pain and Denies dyspnea Gastrointestinal: Gastrointestinal: Reports as per HPI Neurologic: Denies confusion and Denies headache(s) Psychiatric: Psychiatric: Denies confusion Exam Const: General: comfortable and no acute distress; No confusion Orientation/consciousness: patient oriented x3 and No confusion Resp: Effort & Inspection: normal respiratory effort and Actively coughing Auscultation: clear to auscultation bilaterally Cardio: Rate: regular rate Rhythm: regular rhythm GI: Inspection: distended GI Palp: Yes Soft to palpation, No Tenderness to palpation present (GI), No Guarding due to palpation present (GI) and No Rebound tenderness present Auscultation: High-pitched bowel sounds present ( Tinkling bowel sounds) Neuro: General: patient oriented x3, no focal motor deficits and No confusion Extrem: General: no calf tenderness and no edema Psych: Affect: normal affect Insight: Good insight present (Psych) Judgement: Good judgement present (Psych) Objective Data Vital Signs Vital Signs: Vital Signs - 24 hr 12/08/19 14:00 12/08/19 14:28 12/08/19 14:40 Temperature 36.7 C Pulse Rate 115 H 120 H 97 Respiratory Rate 18 20 20 Blood Pressure 140/72 Pulse Oximetry 95 12/08/19 19:56 12/08/19 19:59 12/08/19 20:06 Temperature 36.6 C Pulse Rate 110 H 110 H 112 H Respiratory Rate 16 18 16 Blood Pressure 130/92 H Pulse Oximetry 100 12/09/19 01:16 12/09/19 01:26 12/09/19 05:08 Temperature 36.5 C Pulse Rate 101 H 105 H 100 Respiratory Rate 16 16 14 Blood Pressure 116/82 Pulse Oximetry 94 Intake/Output Intake/Output: Intake & Output 12/06/19 12/07/19 12/08/19 12/09/19 23:59 23:59 23:59 23:59 Intake Total 5130 3746 1160 100 Output Total 1400 1100 2100 1050 Balance 3730 0574 -292 -483 Meds/Results Medications: Active Medications Generic Name Dose Route Start Last Admin Trade Name
[2019-12-09] MEDS: FAMOTIDINE 20 MG/2 ML VIAL IV PUSH ×2 (09:09→20:42)
[2019-12-09] MEDS: ENOXAPARIN 40 MG/0.4 ML SYRINGE SUB-Q (09:09)
[2019-12-09] MEDS: LIDOCAINE HCL 1% PF INJ 5 ML VIAL INFILTRATE (09:45)
[2019-12-09 11:54] LABS: Glucose Point of Care 137 (65-105)
--- NOTE | 2019-12-09 17:05 | P.PNIM_ITS ---
Progress Note: A&P Assessment and Plan (1) Diverticulitis large intestine: Qualifiers: Diverticulitis bleeding: without bleeding Diverticulitis complication: with perforation Qualified Code(s): K57.20 - Diverticulitis of large intestine with perforation and abscess without bleeding Code(s): K57.32 - Diverticulitis of large intestine without perforation or abscess wi thout bleeding Status: Inactive Assessment and Plan: * with perforation, but without abscess * Day 7 zosyn * Likely ileus * gastrograffin sbft possible obstructions so continued into the suction and TPN started today (2) Right lower lobe pneumonia: Qualifiers: Pneumonia type: due to unspecified organism Qualified Code(s): J18.9 - Pneumonia, unspecified organism Code(s): J18.9 - Pneumonia, unspecified organism Status: Acute Assessment and Plan: * Day 7 Zithromax & Zosyn * Clinically improving (3) Pneumoperitoneum: Code(s): K66.8 - Other specified disorders of peritoneum Status: Acute Assessment and Plan: * Due to diverticulitis * Attempting conservative management (4) Impaired glucose tolerance: Code(s): R73.02 - Impaired glucose tolerance (oral) Status: Acute Assessment and Plan: * Fam Hx diabetes (sister) * 12/04 D/w pt need for diabetic diet and increased activity when clinically able * Monitor sugars in the mean time * 12/05 FBS 118 * 12/06 FBS 115 * 12/07 FBS 117 * 12/08 FBS 120 * 12/09 FBS 138, A1c only 6.2 (5) Hypokalemia: Code(s): E87.6 - Hypokalemia Status: Acute Assessment and Plan: * 12/05 added KCL to IVF * 12/06 K 4.0 * 12/07 4.5 * 12/08 4.3 * 12/09 3.9 Subjective Date/time seen: 12/09/19 17:05 Interval history: Date of visit 12/08/2019. cough improving. No further emesis... Still passing stool still with NG in place. Exam Narrative: Exam Narrative: Blood pressure 136/86 pulse is 94 afebrile HEENT: EOMI, NECK: No JVD or bruits CHEST: Decr BS and crackles RLL. Normal effort. HEART: NL S1/S2, regular, no murmur ABDOMEN: hypoactive BS, protuberant but soft, diffusely tender to DEEP palpation with NO rebound, no guarding EXTREMITIES: No cyanosis, edema, or clubbing NEUROLOGIC: CN intact and symmetric to inspection PSYCH: Alert. Oriented to person, place, and time. Objective Data Vital Signs Vital Signs: Vital Signs - 24 hr 12/08/19 19:56 12/08/19 19:59 12/08/19 20:06 Temperature 36.6 C Pulse Rate 110 H 110 H 112 H Respiratory Rate 16 18 16 Blood Pressure 130/92 H Pulse Oximetry 100 12/09/19 01:16 12/09/19 01:26 12/09/19 05:08 Temperature 36.5 C Pulse Rate 101 H 105 H 100 Respiratory Rate 16 16 14 Blood Pressure 116/82 Pulse Oximetry 94 12/09/19 09:09 12/09/19 14:00 12/09/19 14:49 Temperature 37.0 C Pulse Rate 100 98 88 Respiratory Rate 16 16 16 Blood Pressure 137/89 Pulse Oximetry 96 92 12/09/19 14:55 Temperature Pulse Rate 99 Respiratory Rate 16 Blood Pressure Pulse Oximetry Intake/Output Intake/Output: Intake & Output 12/06/19 12/07/19 12/08/19 12/09/19 23:59 23:59 23:59 23:59 Intake Total 5130 3746 1160 15
--- NOTE | 2019-12-09 17:05 | PM.IMPN ---
Progress Note: A&P Assessment and Plan (1) Diverticulitis large intestine: Qualifiers: Diverticulitis bleeding: without bleeding Diverticulitis complication: with perforation Qualified Code(s): K57.20 - Diverticulitis of large intestine with perforation and abscess without bleeding Code(s): K57.32 - Diverticulitis of large intestine without perforation or abscess without bleeding Status: Inactive Assessment and Plan: with perforation, but without abscess Day 7 zosyn Likely ileus gastrograffin sbft possible obstructions so continued into the suction and TPN started today (2) Right lower lobe pneumonia: Qualifiers: Pneumonia type: due to unspecified organism Qualified Code(s): J18.9 - Pneumonia, unspecified organism Code(s): J18.9 - Pneumonia, unspecified organism Status: Acute Assessment and Plan: Day 7 Zithromax & Zosyn Clinically improving (3) Pneumoperitoneum: Code(s): K66.8 - Other specified disorders of peritoneum Status: Acute Assessment and Plan: Due to diverticulitis Attempting conservative management (4) Impaired glucose tolerance: Code(s): R73.02 - Impaired glucose tolerance (oral) Status: Acute Assessment and Plan: Fam Hx diabetes (sister) 12/04 D/w pt need for diabetic diet and increased activity when clinically able Monitor sugars in the mean time 12/05 FBS 118 12/06 FBS 115 12/07 FBS 117 12/08 FBS 120 12/09 FBS 138, A1c only 6.2 (5) Hypokalemia: Code(s): E87.6 - Hypokalemia Status: Acute Assessment and Plan: 12/05 added KCL to IVF 12/06 K 4.0 12/07 4.5 12/08 4.3 12/09 3.9 Subjective Date/time seen: 12/09/19 17:05 Interval history: Date of visit 12/08/2019. cough improving. No further emesis... Still passing stool still with NG in place. Exam Narrative: Exam Narrative: Blood pressure 136/86 pulse is 94 afebrile HEENT: EOMI, NECK: No JVD or bruits CHEST: Decr BS and crackles RLL. Normal effort. HEART: NL S1/S2, regular, no murmur ABDOMEN: hypoactive BS, protuberant but soft, diffusely tender to DEEP palpation with NO rebound, no guarding EXTREMITIES: No cyanosis, edema, or clubbing NEUROLOGIC: CN intact and symmetric to inspection PSYCH: Alert. Oriented to person, place, and time. Objective Data Vital Signs Vital Signs: Vital Signs - 24 hr 12/08/19 19:56 12/08/19 19:59 12/08/19 20:06 Temperature 36.6 C Pulse Rate 110 H 110 H 112 H Respiratory Rate 16 18 16 Blood Pressure 130/92 H Pulse Oximetry 100 12/09/19 01:16 12/09/19 01:26 12/09/19 05:08 Temperature 36.5 C Pulse Rate 101 H 105 H 100 Respiratory Rate 16 16 14 Blood Pressure 116/82 Pulse Oximetry 94 12/09/19 09:09 12/09/19 14:00 12/09/19 14:49 Temperature 37.0 C Pulse Rate 100 98 88 Respiratory Rate 16 16 16 Blood Pressure 137/89 Pulse Oximetry 96 92 12/09/19 14:55 Temperature Pulse Rate 99 Respiratory Rate 16 Blood Pressure Pulse Oximetry Intake/Output Intake/Output: Intake & Output 12/06/19 12/07/19 12/08/19 12/09/19 23:59 23:59 23:59 23:59 Intake Total 5130 3746 1160 1535 Output Total 1400 1100 2100 1050 Balance 3730 2646 -940 485 Meds/Results Medications: Active Medications Generic Name Dose Route Start Last Admin Trade Name Freq PRN Reason Stop Dose Admin Albuterol 5 mg 12/03/19 20:00 12/09/19 14:46 Albuterol Sulf Neb 2.5mg/0.5ml INHALATION 5 mg Q6HRT DINESH Administration Enoxaparin Sodium 40 mg 12/04/19 09:00 12/09/19 09:09 Lovenox SUB-Q 40 mg DAILY DINESH Administration Famotidine 20 mg 12/08/19 21:00 12/09/19 09:09 Pepcid Iv IV PUSH 20 mg Q12HR DINESH Administration Azithromycin 500 mg in 250 mls @ 250 mls/hr 12/03/19 21:00 12/08/19 21:11 Zithromax IVPB Infused Q24H DINESH Infusion Dextrose 1,000 mls @ 50 mls/hr 12/08/19 16:47 Dextrose 10% IV CONT .Q20H PRN if PN is interru
[2019-12-09] MEDS: FAT EMULSIONS IV 20% 250 ML 20 ML IVPB (17:12)
[2019-12-09 17:26] LABS: Glucose Point of Care 137 (65-105)
[2019-12-09 18:14] LABS: Triglycerides 215 mg/dL (<150)
--- NOTE | 2019-12-09 18:25 | PCRCNOTE ---
Patient was unavailable for 8am treatment was having a sterile procedure done
[2019-12-09 23:59] LABS: Glucose Point of Care > 500 (65-105)
[2019-12-09 23:59] LABS: Glucose Point of Care 153 (65-105)
[2019-12-09 23:59] LABS: Glucose Point of Care 53 (65-105)
[2019-12-09 23:59] LABS: Glucose Point of Care > 500 (65-105)
[2019-12-10] VITALS (11 sets, daily range): BP systolic 123–125; BP diastolic 74–81; PULSE 90–100; RESP 16–20; TEMP 36.3–36.7; O2SAT 91–95
--- NOTE | 2019-12-10 00:08 | PC.NURSE ---
Attempted to use sample from PICC line for accucheck so pt would not have to do another finger stick. First sample was diluted, next two samples were contaminated with the PPN. Did a finger stick for the last sample to ensure sugar was not, in fact, high or low. Sugar from finger stick was 153.
[2019-12-10] MEDS: IPRATROPIUM BR 0.02% INH SOLN 0.5 MG/2.5 ML VIAL INHALATION ×4 (02:16→22:49)
[2019-12-10] MEDS: ALBUTEROL SULFATE NEB 2.5 MG/0.5 ML INH 5 MG INHALATION ×4 (02:16→22:49)
[2019-12-10 05:22] LABS: Glucose Point of Care 138 (65-105)
[2019-12-10 05:25] LABS: Hemoglobin 11.8 g/dL (12.0-15.0); Mean Corpuscular HGB Conc 32.8 g/dl (32-36); Mean Corpuscular Hemoglobin 32.3 pg (26-34); Mean Corpuscular Volume 98.6 fl (80-100); Mean Platelet Volume 8.5 fl (7.4-10.4); Platelet Count Result 477 k/mm3 (150-375); Red Blood Count 3.65 M/mm3 (4.2-5.4); Red Cell Distribution Width 13.2 % (11.5-14.5); White Blood Count 14.8 K/mm3 (4.5-10.0)
[2019-12-10 05:44] LABS: Blood Urea Nitrogen 22 mg/dL (7-17); CRP 3.3 mg/dL (<1.0); Calcium 8.5 mg/dL (8.4-10.2); Carbon Dioxide 29 mmol/L (22-30); Chloride 95 mmol/L (98-107); Estimated CRCL calculation 93 ml/min; Estimated Glomerular Filt Rate > 60; Glucose 142 mg/dL (65-105); Phosphorus 3.3 mg/dL (2.5-4.5); Sodium 132 mmol/L (137-145)
--- NOTE | 2019-12-10 07:01 | PM.PNGS ---
Progress Note: A&P Assessment and Plan (1) Small intestine obstruction: Code(s): K56.609 - Unspecified intestinal obstruction, unspecified as to partial versus complete obstruction Status: Acute Assessment and Plan: patient had bowel movement and is not having any abdominal pain. Her abdomen, however, is still somewhat distended with absent bowel sounds. KUB shows somewhat decreased small bowel dilatation. NG tube will be advanced. Continue NPO and TPN. Increased white blood cell count noted but patient has really no new symptoms or signs of infection. Will recheck again tomorrow. Somehow ir Zosyn was stopped. I will restarted today. If white cell count still elevated tomorrow will repeat CT scan. Continue present non operative treatment of small-bowel obstruction. (2) Diverticulitis of large intestine with perforation: Qualifiers: Diverticulitis bleeding: without bleeding Qualified Code(s): K57.20 - Diverticulitis of large intestine with perforation and abscess without bleeding Code(s): K57.20 - Diverticulitis of large intestine with perforation and abscess without bleeding Status: Acute Assessment and Plan: White blood cell count up today as noted above. No abdominal pain. Still has either ileus or small-bowel obstruction. See above for plan. (3) Right lower lobe pneumonia: Qualifiers: Pneumonia type: due to unspecified organism Qualified Code(s): J18.9 - Pneumonia, unspecified organism Code(s): J18.9 - Pneumonia, unspecified organism Status: Acute Assessment and Plan: Coughing much less and seems to be breathing better. Continues on Azithromycin. Subjective Subjective Date/Time Seen: 12/10/19 07:01 Patient reports: feels better, pain is less (No abdominal pain again today), bowel movement and afebrile Interval history: patient had normal bowel movement last night. No abdominal pain again this morning. Was up and did some walking yesterday. No new complaints or problems. Review of Systems Review of Systems: All systems reviewed & are unremarkable except as noted in HPI and below Constitutional: Constitutional: Denies headache(s) ENT: Denies headache(s) Cardiovascular: Cardiovascular: Denies chest pain and Denies dyspnea Respiratory: Respiratory: Denies cough and Denies dyspnea Gastrointestinal: Gastrointestinal: Reports as per HPI Neurologic: Denies confusion and Denies headache(s) Psychiatric: Psychiatric: Denies confusion Exam Const: General: comfortable and no acute distress; No confusion Orientation/consciousness: patient oriented x3 and No confusion Resp: Effort & Inspection: normal respiratory effort and Actively coughing ( Much better.) Auscultation: clear to auscultation bilaterally Cardio: Rate: regular rate GI: Inspection: distended GI Palp: Yes Firmness to palpation present (GI), No Tenderness to palpation present (GI), No Guarding due to palpation present (GI) and No Rebound tenderness present Auscultation: absent bowel sounds Neuro: General: patient oriented x3, no focal motor deficits and No confusion Extrem: General: no calf tenderness and no edema Psych: Affect: normal affect Insight: Good insight present (Psych) Judgement: Good judgement present (Psych) Objective Data Vital Signs Vital Signs: Vital Signs - 24 hr 12/09/19 09:09 12/09/19 14:00 12/09/19 14:49 Temperature 37.0 C Pulse Rate 100 98 88 Respiratory Rate 16 16 16 Blood Pressure 137/89 Pulse Oximetry 96 92 12/09/19 14:55 12/09/19 19:58 12/09/19 20:01 Temperature 36.6 C Pulse Rate 99 97 99 Respiratory Rate 16 16 16 Blood Pressure 123/80 Pulse Oximetry 98 12/09/19 20:05 12/10/19 02:17 12/10/19 02:22 Temperature Pulse Rate 99 97 98 Respiratory Rate 16 16 16 Blood Pressure Pulse Oximetry 12/10/19 04:34 Temperature 36.3 C L Pulse Rate 100 Respiratory Rate 16 Blood Pressure 125/8
--- NOTE | 2019-12-10 07:02 | PC.NURSE ---
NG advanced per physician's order.
[2019-12-10] MEDS: ENOXAPARIN 40 MG/0.4 ML SYRINGE SUB-Q (09:34)
[2019-12-10] MEDS: FAMOTIDINE 20 MG/2 ML VIAL IV PUSH ×2 (09:34→21:37)
--- NOTE | 2019-12-10 11:09 | P.PNIM_ITS ---
Progress Note: A&P Assessment and Plan (1) Diverticulitis large intestine: Qualifiers: Diverticulitis bleeding: without bleeding Diverticulitis complication: with perforation Qualified Code(s): K57.20 - Diverticulitis of large intestine with perforation and abscess without bleeding Code(s): K57.32 - Diverticulitis of large intestine without perforation or abscess wi thout bleeding Status: Inactive Assessment and Plan: * with perforation, but without abscess * Day 2 zosyn( researching MAR and previous meds it appears pt only received zosyn in ER!) * Likely ileus * gastrograffin sbft possible obstructions so continued into the suction and TPN started 12/09 (2) Right lower lobe pneumonia: Qualifiers: Pneumonia type: due to unspecified organism Qualified Code(s): J18.9 - Pneumonia, unspecified organism Code(s): J18.9 - Pneumonia, unspecified organism Status: Acute Assessment and Plan: * Day 8 Zithromax & day 2 of Zosyn * Clinically improving (3) Pneumoperitoneum: Code(s): K66.8 - Other specified disorders of peritoneum Status: Acute Assessment and Plan: * Due to diverticulitis * Attempting conservative management (4) Impaired glucose tolerance: Code(s): R73.02 - Impaired glucose tolerance (oral) Status: Acute Assessment and Plan: * Fam Hx diabetes (sister) * 12/04 D/w pt need for diabetic diet and increased activity when clinically able * Monitor sugars in the mean time * 12/05 FBS 118 * 12/06 FBS 115 * 12/07 FBS 117 * 12/08 FBS 120 * 12/09 FBS 138, A1c only 6.2 * 12/10 FBS 139 again (5) Hypokalemia: Code(s): E87.6 - Hypokalemia Status: Acute Assessment and Plan: * 12/05 added KCL to IVF * 12/06 K 4.0 * 12/07 4.5 * 12/08 4.3 * 12/09 3.9 resolved Subjective Date/time seen: 12/10/19 11:09 Interval history: Date of visit 12/10/2019. Still some cough . No further emesis with NG, had good bm today. No pain Exam Narrative: Exam Narrative: Blood pressure 124/80 pulse is 92 afebrile HEENT: EOMI, NECK: No JVD or bruits CHEST: faint crackles RLL. HEART: NL S1/S2, regular, no murmur ABDOMEN: hypoactive BS, protuberant but soft, non tender today, no guarding EXTREMITIES: No cyanosis, edema, or clubbing NEUROLOGIC: CN intact and symmetric to inspection PSYCH: Alert. Oriented to person, place, and time. Objective Data Vital Signs Vital Signs: Vital Signs - 24 hr 12/09/19 14:00 12/09/19 14:49 12/09/19 14:55 Temperature 37.0 C Pulse Rate 98 88 99 Respiratory Rate 16 16 16 Blood Pressure 137/89 Pulse Oximetry 92 12/09/19 19:58 12/09/19 20:01 12/09/19 20:05 Temperature 36.6 C Pulse Rate 97 99 99 Respiratory Rate 16 16 16 Blood Pressure 123/80 Pulse Oximetry 98 12/10/19 02:17 12/10/19 02:22 12/10/19 04:34 Temperature 36.3 C L Pulse Rate 97 98 100 Respiratory Rate 16 16 16 Blood Pressure 125/81 Pulse Oximetry 94 12/10/19 07:54 12/10/19 08:01 Temperature Pulse Rate 96 992 H Respiratory Rate 20 20 Blood Pressure Pulse Oximetry Intake/Output Intake/Output: Intake & Output 12/07/19 12/08/19 12/09/19 12/10/19
--- NOTE | 2019-12-10 11:09 | PM.IMPN ---
Progress Note: A&P Assessment and Plan (1) Diverticulitis large intestine: Qualifiers: Diverticulitis bleeding: without bleeding Diverticulitis complication: with perforation Qualified Code(s): K57.20 - Diverticulitis of large intestine with perforation and abscess without bleeding Code(s): K57.32 - Diverticulitis of large intestine without perforation or abscess without bleeding Status: Inactive Assessment and Plan: with perforation, but without abscess Day 2 zosyn( researching MAR and previous meds it appears pt only received zosyn in ER!) Likely ileus gastrograffin sbft possible obstructions so continued into the suction and TPN started 12/09 (2) Right lower lobe pneumonia: Qualifiers: Pneumonia type: due to unspecified organism Qualified Code(s): J18.9 - Pneumonia, unspecified organism Code(s): J18.9 - Pneumonia, unspecified organism Status: Acute Assessment and Plan: Day 8 Zithromax & day 2 of Zosyn Clinically improving (3) Pneumoperitoneum: Code(s): K66.8 - Other specified disorders of peritoneum Status: Acute Assessment and Plan: Due to diverticulitis Attempting conservative management (4) Impaired glucose tolerance: Code(s): R73.02 - Impaired glucose tolerance (oral) Status: Acute Assessment and Plan: Fam Hx diabetes (sister) 12/04 D/w pt need for diabetic diet and increased activity when clinically able Monitor sugars in the mean time 12/05 FBS 118 12/06 FBS 115 12/07 FBS 117 12/08 FBS 120 12/09 FBS 138, A1c only 6.2 12/10 FBS 139 again (5) Hypokalemia: Code(s): E87.6 - Hypokalemia Status: Acute Assessment and Plan: 12/05 added KCL to IVF 12/06 K 4.0 12/07 4.5 12/08 4.3 12/09 3.9 resolved Subjective Date/time seen: 12/10/19 11:09 Interval history: Date of visit 12/10/2019. Still some cough . No further emesis with NG, had good bm today. No pain Exam Narrative: Exam Narrative: Blood pressure 124/80 pulse is 92 afebrile HEENT: EOMI, NECK: No JVD or bruits CHEST: faint crackles RLL. HEART: NL S1/S2, regular, no murmur ABDOMEN: hypoactive BS, protuberant but soft, non tender today, no guarding EXTREMITIES: No cyanosis, edema, or clubbing NEUROLOGIC: CN intact and symmetric to inspection PSYCH: Alert. Oriented to person, place, and time. Objective Data Vital Signs Vital Signs: Vital Signs - 24 hr 12/09/19 14:00 12/09/19 14:49 12/09/19 14:55 Temperature 37.0 C Pulse Rate 98 88 99 Respiratory Rate 16 16 16 Blood Pressure 137/89 Pulse Oximetry 92 12/09/19 19:58 12/09/19 20:01 12/09/19 20:05 Temperature 36.6 C Pulse Rate 97 99 99 Respiratory Rate 16 16 16 Blood Pressure 123/80 Pulse Oximetry 98 12/10/19 02:17 12/10/19 02:22 12/10/19 04:34 Temperature 36.3 C L Pulse Rate 97 98 100 Respiratory Rate 16 16 16 Blood Pressure 125/81 Pulse Oximetry 94 12/10/19 07:54 12/10/19 08:01 Temperature Pulse Rate 96 992 H Respiratory Rate 20 20 Blood Pressure Pulse Oximetry Intake/Output Intake/Output: Intake & Output 12/07/19 12/08/19 12/09/19 12/10/19 23:59 23:59 23:59 23:59 Intake Total 3746 1160 2068 350 Output Total 1100 2100 1250 150 Balance 2646 -940 818 200 Meds/Results Medications: Active Medications Generic Name Dose Route Start Last Admin Trade Name Freq PRN Reason Stop Dose Admin Albuterol 5 mg 12/03/19 20:00 12/10/19 07:53 Albuterol Sulf Neb 2.5mg/0.5ml INHALATION 5 mg Q6HRT DINESH Administration Enoxaparin Sodium 40 mg 12/04/19 09:00 12/10/19 09:34 Lovenox SUB-Q 40 mg DAILY DINESH Administration Famotidine 20 mg 12/08/19 21:00 12/10/19 09:34 Pepcid Iv IV PUSH 20 mg Q12HR DINESH Administration Azithromycin 500 mg in 250 mls @ 250 mls/hr 12/03/19 21:00 12/09/19 21:51 Zithromax IVPB Infused Q24H DINESH Infusion Dextrose 1,000 mls @ 50 mls/hr 12/08/19 16:47 De
[2019-12-10 12:06] LABS: Glucose Point of Care 149 (65-105)
[2019-12-10 17:35] LABS: Glucose Point of Care 137 (65-105)
[2019-12-10] MEDS: FAT EMULSIONS IV 20% 250 ML 20 ML IVPB (17:37)
[2019-12-11] VITALS (21 sets, daily range): BP systolic 99–134; BP diastolic 70–92; PULSE 88–98; RESP 14–20; TEMP 36.3–37.2; O2SAT 93–97
[2019-12-11 00:55] LABS: Glucose Point of Care 119 (65-105)
[2019-12-11] MEDS: IPRATROPIUM BR 0.02% INH SOLN 0.5 MG/2.5 ML VIAL INHALATION ×4 (03:46→20:06)
[2019-12-11] MEDS: ALBUTEROL SULFATE NEB 2.5 MG/0.5 ML INH 5 MG INHALATION ×4 (03:46→20:05)
[2019-12-11 06:03] LABS: Glucose Point of Care 148 (65-105)
[2019-12-11 06:11] LABS: Hematocrit 36.1 % (37.0-47.0); Hemoglobin 12.1 g/dL (12.0-15.0); Mean Corpuscular HGB Conc 33.5 g/dl (32-36); Mean Corpuscular Hemoglobin 32.7 pg (26-34); Mean Corpuscular Volume 97.6 fl (80-100); Mean Platelet Volume 8.8 fl (7.4-10.4); Platelet Count Result 310 k/mm3 (150-375); Red Cell Distribution Width 12.9 % (11.5-14.5); White Blood Count 14.9 K/mm3 (4.5-10.0)
[2019-12-11 06:24] LABS: Blood Urea Nitrogen 14 mg/dL (7-17); Calcium 8.3 mg/dL (8.4-10.2); Carbon Dioxide 27 mmol/L (22-30); Chloride 96 mmol/L (98-107); Estimated CRCL calculation 93 ml/min; Estimated Glomerular Filt Rate > 60; Glucose 139 mg/dL (65-105); Phosphorus 3.6 mg/dL (2.5-4.5); Potassium 3.7 mmol/L (3.4-5.0); Sodium 133 mmol/L (137-145)
--- NOTE | 2019-12-11 07:44 | PM.PNGS ---
Progress Note: A&P Assessment and Plan (1) Leukocytosis, unspecified: Code(s): D72.829 - Elevated white blood cell count, unspecified Status: Acute Assessment and Plan: elevated white blood cell count again noted. Patient has no tachypnea. No fever. She has had tachycardia for several days even before the elevation in the white blood cell count. This is actually a little better. No complaints of abdominal pain, dysuria, and shortness of breath is much improved. will get CT scan of abdomen and pelvis. Patient may have an abscess and this may be also the reason for the small-bowel obstruction. If CT is negative consider Drug related leukocytosis. (2) Small intestine obstruction: Code(s): K56.609 - Unspecified intestinal obstruction, unspecified as to partial versus complete obstruction Status: Acute Assessment and Plan: Having bowel movements and no abdominal pain. Imaging is a little better. NG tube output was quite high but decreased to only 600 cc yesterday. Continue NG tube suction NPO TPN. (3) Protein-calorie malnutrition, moderate: Code(s): E44.0 - Moderate protein-calorie malnutrition Status: Acute Assessment and Plan: continues now on day 3 of TPN. No plans at this point to start oral intake. Labs look okay. (4) Diverticulitis of large intestine with perforation: Qualifiers: Diverticulitis bleeding: without bleeding Qualified Code(s): K57.20 - Diverticulitis of large intestine with perforation and abscess without bleeding Code(s): K57.20 - Diverticulitis of large intestine with perforation and abscess without bleeding Status: Acute Assessment and Plan: CT scan being recheck today. Potential for abdominal abscess. (5) Right lower lobe pneumonia: Qualifiers: Pneumonia type: due to unspecified organism Qualified Code(s): J18.9 - Pneumonia, unspecified organism Code(s): J18.9 - Pneumonia, unspecified organism Status: Acute Subjective Subjective Date/Time Seen: 12/11/19 07:44 Patient reports: no new complaints, pain is less ( No abdominal pain), bowel movement and afebrile Interval history: no real changes far is complaints or problems. Had bowel movements yesterday and again this morning. No complaints of abdominal pain at all. Breathing better. Review of Systems Review of Systems: All systems reviewed & are unremarkable except as noted in HPI and below Constitutional: Constitutional: Denies headache(s) ENT: Denies headache(s) Cardiovascular: Cardiovascular: Denies chest pain and Denies dyspnea Respiratory: Respiratory: Denies cough and Denies dyspnea Gastrointestinal: Gastrointestinal: Reports as per HPI Neurologic: Denies confusion and Denies headache(s) Psychiatric: Psychiatric: Denies confusion Exam Const: General: comfortable and no acute distress; No confusion Orientation/consciousness: patient oriented x3 and No confusion Resp: Effort & Inspection: normal respiratory effort Auscultation: clear to auscultation bilaterally Cardio: Rate: regular rate Rhythm: regular rhythm GI: Inspection: distended GI Palp: Yes Soft to palpation, No Tenderness to palpation present (GI), No Guarding due to palpation present (GI) and No Rebound tenderness present Auscultation: absent bowel sounds Neuro: General: patient oriented x3, no focal motor deficits and No confusion Extrem: General: no calf tenderness and no edema Psych: Affect: normal affect Insight: Good insight present (Psych) Judgement: Good judgement present (Psych) Objective Data Vital Signs Vital Signs: Vital Signs - 24 hr 12/10/19 07:54 12/10/19 08:01 12/10/19 13:58 Temperature Pulse Rate 96 92 92 Respiratory Rate 20 20 20 Blood Pressure Pulse Oximetry 12/10/19 14:00 12/10/19 14:09 12/10/19 22:00 Temperature 36.7 C 36.7 C Pulse Rate 90 96 94 Respiratory Rate 20 20 16 Blood Pressure 125
[2019-12-11 08:36] LABS: Glucose Point of Care 161 (65-105)
[2019-12-11] MEDS: ENOXAPARIN 40 MG/0.4 ML SYRINGE SUB-Q (10:44)
[2019-12-11] MEDS: FAMOTIDINE 20 MG/2 ML VIAL IV PUSH ×2 (10:44→20:00)
[2019-12-11 11:17] LABS: INR 1.2; Prothrombin Time 14.4 Seconds (11.1-14.7)
[2019-12-11 11:18] LABS: Partial Thromboplastin Time 27.5 SECONDS (22.3-36.8)
[2019-12-11 12:07] LABS: Glucose Point of Care 136 (65-105)
--- NOTE | 2019-12-11 13:43 | P.PNIM_ITS ---
Progress Note: A&P Assessment and Plan (1) Diverticulitis large intestine: Qualifiers: Diverticulitis bleeding: without bleeding Diverticulitis complication: with perforation Qualified Code(s): K57.20 - Diverticulitis of large intestine with perforation and abscess without bleeding Code(s): K57.32 - Diverticulitis of large intestine without perforation or abscess wi thout bleeding Status: Inactive Assessment and Plan: * with perforation, and now without abscess, IR to place drain today * Day 3 zosyn( researching MAR and previous meds it appears pt only received zosyn in ER! and now back on ) * Likely ileus * gastrograffin sbft possible obstructions so continued into the suction and TPN started 12/09 (2) Right lower lobe pneumonia: Qualifiers: Pneumonia type: due to unspecified organism Qualified Code(s): J18.9 - Pneumonia, unspecified organism Code(s): J18.9 - Pneumonia, unspecified organism Status: Acute Assessment and Plan: * Day 9 Zithromax & day 3 of Zosyn( d/c azithromycin 12/12) * Clinically improving (3) Pneumoperitoneum: Code(s): K66.8 - Other specified disorders of peritoneum Status: Acute Assessment and Plan: * Due to diverticulitis * Attempting conservative management (4) Impaired glucose tolerance: Code(s): R73.02 - Impaired glucose tolerance (oral) Status: Acute Assessment and Plan: * Fam Hx diabetes (sister) * 12/04 D/w pt need for diabetic diet and increased activity when clinically able * Monitor sugars in the mean time * 12/05 FBS 118 * 12/06 FBS 115 * 12/07 FBS 117 * 12/08 FBS 120 * 12/09 FBS 138, A1c only 6.2 * 12/10 FBS 139 again * 12/11 FBS 140 even with TPN (5) Hypokalemia: Code(s): E87.6 - Hypokalemia Status: Acute Assessment and Plan: * 12/05 added KCL to IVF * 12/06 K 4.0 * 12/07 4.5 * 12/08 4.3 * 12/09 3.9 resolved (6) DVT prophylaxis: Code(s): Z29.9 - Encounter for prophylactic measures, unspecified Status: Acute Assessment and Plan: Lovenox per surgery Subjective Date/time seen: 12/11/19 13:43 Interval history: Date of visit 12/11/2019. Minimal cough . No further emesis with NG, had good bm 12/10. No pain. SBF 12/10 contrast reaches colon but at [address] partial obstruction and ct today 7 cm pelvic abscess. with obstruction. IR to place drain Exam Narrative: Exam Narrative: Blood pressure 120/76 pulse is 96, 95% RA afebrile HEENT: EOMI, NECK: No JVD or bruits CHEST: faint crackles RLL. HEART: NL S1/S2, regular, no murmur ABDOMEN: hypoactive BS, less protuberant but soft, non tender , no guarding EXTREMITIES: No cyanosis, edema, or clubbing NEUROLOGIC: CN intact and symmetric to inspection PSYCH: Alert. Oriented to person, place, and time. Objective Data Vital Signs Vital Signs: Vital Signs - 24 hr 12/10/19 13:58 12/10/19 14:00 12/10/19 14:09 Temperature 36.7 C Pulse Rate 92 90 96 Respiratory Rate 20 20 20 Blood Pressure 125/74 Pulse Oximetry 91 12/10/19 22:00 12/10/19 22:49 12/10/19 22:58 Temperature 36.7 C Pulse Rate 94 94 92 Respiratory Rate 16 20 20 Blood Pressure 123/80 Pulse Oximetry 95 12/11/19 03:46 12/11/19 03:55 12/11/19 06:00 Temperature 36.7 C Pulse Rate 98 96 98 Respiratory Rate 20 20 16
--- NOTE | 2019-12-11 13:43 | PM.IMPN ---
Progress Note: A&P Assessment and Plan (1) Diverticulitis large intestine: Qualifiers: Diverticulitis bleeding: without bleeding Diverticulitis complication: with perforation Qualified Code(s): K57.20 - Diverticulitis of large intestine with perforation and abscess without bleeding Code(s): K57.32 - Diverticulitis of large intestine without perforation or abscess without bleeding Status: Inactive Assessment and Plan: with perforation, and now without abscess, IR to place drain today Day 3 zosyn( researching MAR and previous meds it appears pt only received zosyn in ER! and now back on ) Likely ileus gastrograffin sbft possible obstructions so continued into the suction and TPN started 12/09 (2) Right lower lobe pneumonia: Qualifiers: Pneumonia type: due to unspecified organism Qualified Code(s): J18.9 - Pneumonia, unspecified organism Code(s): J18.9 - Pneumonia, unspecified organism Status: Acute Assessment and Plan: Day 9 Zithromax & day 3 of Zosyn( d/c azithromycin 12/12) Clinically improving (3) Pneumoperitoneum: Code(s): K66.8 - Other specified disorders of peritoneum Status: Acute Assessment and Plan: Due to diverticulitis Attempting conservative management (4) Impaired glucose tolerance: Code(s): R73.02 - Impaired glucose tolerance (oral) Status: Acute Assessment and Plan: Fam Hx diabetes (sister) 12/04 D/w pt need for diabetic diet and increased activity when clinically able Monitor sugars in the mean time 12/05 FBS 118 12/06 FBS 115 12/07 FBS 117 12/08 FBS 120 12/09 FBS 138, A1c only 6.2 12/10 FBS 139 again 12/11 FBS 140 even with TPN (5) Hypokalemia: Code(s): E87.6 - Hypokalemia Status: Acute Assessment and Plan: 12/05 added KCL to IVF 12/06 K 4.0 12/07 4.5 12/08 4.3 12/09 3.9 resolved (6) DVT prophylaxis: Code(s): Z29.9 - Encounter for prophylactic measures, unspecified Status: Acute Assessment and Plan: Lovenox per surgery Subjective Date/time seen: 12/11/19 13:43 Interval history: Date of visit 12/11/2019. Minimal cough . No further emesis with NG, had good bm 12/10. No pain. SBF 12/10 contrast reaches colon but at least partial obstruction and ct today 7 cm pelvic abscess. with obstruction. IR to place drain Exam Narrative: Exam Narrative: Blood pressure 120/76 pulse is 96, 95% RA afebrile HEENT: EOMI, NECK: No JVD or bruits CHEST: faint crackles RLL. HEART: NL S1/S2, regular, no murmur ABDOMEN: hypoactive BS, less protuberant but soft, non tender , no guarding EXTREMITIES: No cyanosis, edema, or clubbing NEUROLOGIC: CN intact and symmetric to inspection PSYCH: Alert. Oriented to person, place, and time. Objective Data Vital Signs Vital Signs: Vital Signs - 24 hr 12/10/19 13:58 12/10/19 14:00 12/10/19 14:09 Temperature 36.7 C Pulse Rate 92 90 96 Respiratory Rate 20 20 20 Blood Pressure 125/74 Pulse Oximetry 91 12/10/19 22:00 12/10/19 22:49 12/10/19 22:58 Temperature 36.7 C Pulse Rate 94 94 92 Respiratory Rate 16 20 20 Blood Pressure 123/80 Pulse Oximetry 95 12/11/19 03:46 12/11/19 03:55 12/11/19 06:00 Temperature 36.7 C Pulse Rate 98 96 98 Respiratory Rate 20 20 16 Blood Pressure 119/77 Pulse Oximetry 95 12/11/19 08:41 Temperature Pulse Rate 90 Respiratory Rate 18 Blood Pressure Pulse Oximetry Intake/Output Intake/Output: Intake & Output 12/08/19 12/09/19 12/10/19 12/11/19 23:59 23:59 23:59 23:59 Intake Total 1160 2068 2542 2355 Output Total 2100 1250 1500 350 Balance -304 984 6736 2004 Meds/Results Medications: Active Medications Generic Name Dose Route Start Last Admin Trade Name Freq PRN Reason Stop Dose Admin Albuterol 5 mg 12/03/19 20:00 12/11/19 08:39 Albuterol Sulf Neb 2.5mg/0.5ml INHALATION 5 mg Q6HRT DINESH Administration Enoxaparin Sodium 40 mg
--- NOTE | 2019-12-11 14:10 | WPDMODSED ---
Moderate Sedation Note-Pt Data Patient Data Diagnosis: Pelvic abscess. Present Complaint: Pelvic abscess. Procedure to be performed/Plan: CT-guided pelvic abscess drainage. Allergies Allergy/AdvReac Type Severity Reaction Status Date / Time No Known Allergies Allergy Verified 11/29/19 10:51 Home Medications Medication Instructions Recorded Confirmed Type albuterol sulfate 2 puff INHALATION QID PRN #8 gm 11/29/19 12/03/19 Rx benzonatate [Tessalon Perles] 100 mg PO TID PRN #20 cap 11/29/19 12/03/19 Rx codeine-guaifenesin 5 ml PO Q4-6H PRN #473 ml 11/29/19 12/03/19 Rx Current Medications: Active Medications Albuterol (Albuterol Sulf Neb 2.5mg/0.5ml) 5 mg INHALATION Q6HRT [facility] Last Admin: 12/11/19 08:39 Dose: 5 mg Documented by: Enoxaparin Sodium (Lovenox) 40 mg SUB-Q DAILY [facility] Last Admin: 12/11/19 10:44 Dose: 40 mg Documented by: Famotidine (Pepcid Iv) 20 mg IV PUSH Q12HR [facility] Last Admin: 12/11/19 10:44 Dose: 20 mg Documented by: Azithromycin (Zithromax) 500 mg in 250 mls @ 250 mls/hr IVPB Q24H [facility] Last Infusion: 12/10/19 22:37 Dose: Infused Documented by: Dextrose (Dextrose 10%) 1,000 mls @ 50 mls/hr IV CONT .Q20H PRN PRN Reason: if PN is interrupted Fat Emulsion Intravenous (Lipids 20%) 250 mls @ 20.833 mls/hr IVPB Q24H [facility] Last Infusion: 12/11/19 06:20 Dose: Infused Documented by: Multivitamins 5 ml/ Amino (Acids/Electrolytes/Dextrose) 2,005 mls @ 40 mls/hr IV CONT .Q24H [facility]; Protocol Last Admin: 12/11/19 12:02 Dose: 40 mls/hr Documented by: Piperacillin/Tazobactam/Dextrose (Zosyn 3.375 Gm/D5w 50ml Pm) 3.375 gm in 50 mls @ 100 mls/hr IVPB Q6HR [facility] Last Admin: 12/11/19 13:38 Dose: 100 mls/hr Documented by: Insulin Aspart () 0 units SUB-Q Q6HR DINESH; Protocol Last Admin: 12/11/19 12:11 Dose: Not Given Documented by: Ipratropium Nemo (Atrovent Neb) 0.5 mg INHALATION Q6HRT DINESH Last Admin: 12/11/19 08:39 Dose: 0.5 mg Documented by: Morphine Sulfate (Morphine Sulfate Inj) 2 mg IV PUSH Q2H PRN PRN Reason: Pain Rated 4-6 Last Admin: 12/05/19 09:46 Dose: 2 mg Documented by: Morphine Sulfate (Morphine Sulfate Inj) 4 mg IV PUSH Q2H PRN PRN Reason: Pain Rated 7-10 Last Admin: 12/04/19 05:59 Dose: 4 mg Documented by: Naloxone HCl (Narcan) 0.1 mg IV PUSH Q2M PRN PRN Reason: Opiate Reversal Ondansetron HCl (Zofran Inj) 4 mg IV PUSH Q4H PRN PRN Reason: Nausea And Vomiting Last Admin: 12/08/19 17:22 Dose: 4 mg Documented by: Sedation/Anesthesia: No previous sedation/anesthesia problems (including family history). [facility] Past Medical History Medical History (Updated 12/11/19 @ 13:51 by Jem Shultz MD) Arthritis hands and feet Epistaxis Hallux rigidus rt Hammer toes, bilateral Impaired glucose tolerance Surgical History Surgical History H/O breast biopsy H/O tubal ligation H/O: hysterectomy History of bladder suspension procedure Hx of breast implants, bilateral with removal Hx of colonoscopy Hx of foot surgery rt foot Family History Family History Mother Hypertension Cerebrovascular accident Family history of transient ischemic attacks Family history of arthritis Family history of kidney disease Family history of aortic aneurysm Father Carcinoma of colon Family history of lung cancer Acute myocardial infarction Sibling Diabetes mellitus Family history of chronic obstructive pulmonary disease Family history of congestive heart failure Social History Social History Smoking status: Former smoker Second hand tobacco smoke exposure: No Smoking end date: 11/12/82 Alcohol intake: current Drinks per week: 5 Substance use: never Gender identity (if verbalized by the patient): Female Spiritual care concerns: No Agree to blood products: Yes Mod Se
[2019-12-11] MEDS: FAT EMULSIONS IV 20% 250 ML 20 ML IVPB (17:13)
[2019-12-11 17:16] LABS: Triglycerides 80 mg/dL (<150)
[2019-12-11 17:31] LABS: Glucose Point of Care 125 (65-105)
[2019-12-12] VITALS (11 sets, daily range): BP systolic 120–133; BP diastolic 75–84; PULSE 74–97; RESP 14–18; TEMP 36.3–36.7; O2SAT 93–96
[2019-12-12 00:19] LABS: Glucose Point of Care 126 (65-105)
[2019-12-12 00:19] LABS: Glucose Point of Care 49 (65-105)
[2019-12-12] MEDS: IPRATROPIUM BR 0.02% INH SOLN 0.5 MG/2.5 ML VIAL INHALATION ×4 (01:00→19:18)
[2019-12-12] MEDS: ALBUTEROL SULFATE NEB 2.5 MG/0.5 ML INH 5 MG INHALATION ×4 (01:00→19:18)
[2019-12-12 06:12] LABS: Glucose Point of Care 368 (65-105)
[2019-12-12 06:12] LABS: Glucose Point of Care 144 (65-105)
[2019-12-12 06:18] LABS: Hematocrit 33.3 % (37.0-47.0); Hemoglobin 10.8 g/dL (12.0-15.0); Mean Corpuscular HGB Conc 32.4 g/dl (32-36); Mean Corpuscular Volume 98.5 fl (80-100); Platelet Count Result 387 k/mm3 (150-375); Red Blood Count 3.38 M/mm3 (4.2-5.4); Red Cell Distribution Width 12.9 % (11.5-14.5); White Blood Count 10.1 K/mm3 (4.5-10.0)
--- NOTE | 2019-12-12 06:22 | PC.NURSE ---
Attempted to use PICC to get blood to check BGL to save the pt a stick, this is why there are 2 incorrect critical BGL values for the pt [facility]. Sugar was rechecked using the accucheck and were wnl.
[2019-12-12 06:38] LABS: Blood Urea Nitrogen 11 mg/dL (7-17); Calcium 8.3 mg/dL (8.4-10.2); Carbon Dioxide 26 mmol/L (22-30); Chloride 98 mmol/L (98-107); Estimated CRCL calculation 76 ml/min; Estimated Glomerular Filt Rate > 60; Glucose 131 mg/dL (65-105); Phosphorus 3.4 mg/dL (2.5-4.5); Potassium 3.6 mmol/L (3.4-5.0); Sodium 134 mmol/L (137-145)
[2019-12-12] MEDS: ENOXAPARIN 40 MG/0.4 ML SYRINGE SUB-Q (09:44)
[2019-12-12] MEDS: FAMOTIDINE 20 MG/2 ML VIAL IV PUSH ×2 (09:46→22:03)
[2019-12-12] MEDS: metroNIDAZOLE 500 MG/ISO 100ML 500 MG/100 ML BAG 100 MG IVPB ×3 (11:07→23:10)
--- NOTE | 2019-12-12 11:10 | PCNFU ---
Nutrition Follow-Up Complete: Inadequate oral intake r/t SBO as evidence by md notes (JONATHAN) and need for PPN to meet needs temporarily ADAT to low fiber within five days with intakes of 75% or greater Goal: progressing towards goal. Pt current nutrition is NPO. Nutrition recommendation: Advance as tolerated per MD orders. Last recorded weight is 64.2 kg. Bowel Motility:+BM Labs Reviewed:Cr 0.5,Glu 131,Hct 33.3 Meds Noted:Clinimix E 5/15 at 40 ml/hr, 250 ml of 20% Lipid Emulsion Additional Notes: Patient has NGT with Clinimix E 5/15 at 40 ml/hr providing 1182 kcals and 48 gms protein. Would recommend to increase TPN rate to 60 ml/hr to better meet patients caloric needs, which would provide 1522 kcals and 72 gms of protein. Monitoring: diet, wt, labs every t/f
[2019-12-12] MEDS: PHENOL/SOD PHENO SPRAY CHERRY (*BKC) 1 SPRAY MUCOUS MEM (12:33)
--- NOTE | 2019-12-12 12:51 | PM.PNGS ---
Progress Note: A&P Assessment and Plan (1) Diverticulitis of large intestine with abscess without bleeding: Code(s): K57.20 - Diverticulitis of large intestine with perforation and abscess without bleeding Status: Acute Assessment and Plan: Abscess successfully drained percutaneously with CT guidance yesterday. Already patient's abdominal distention is improved. [place] white blood cell [place] [id number]. She seems to feel better. Continue IV antibiotics and pigtail catheter drainage. Hopefully small-bowel obstruction will resolve. (2) Small intestine obstruction: Code(s): K56.609 - Unspecified intestinal obstruction, unspecified as to partial versus complete obstruction Status: Acute Assessment and Plan: Abdomen less distended today. Hopefully obstruction will resolve. Continue NG tube in NPO for now. (3) Protein-calorie malnutrition, moderate: Code(s): E44.0 - Moderate protein-calorie malnutrition Status: Acute Assessment and Plan: Renew TPN. Patient still unable to eat. (4) Leukocytosis, unspecified: Code(s): D72.829 - Elevated white blood cell count, unspecified Status: Acute Assessment and Plan: Probably due to pelvic abscess. Decreased 10,100 today. (5) Right lower lobe pneumonia: Qualifiers: Pneumonia type: due to unspecified organism Qualified Code(s): J18.9 - Pneumonia, unspecified organism Code(s): J18.9 - Pneumonia, unspecified organism Status: Acute Assessment and Plan: Continues on a Azithromycin. Subjective Subjective Date/Time Seen: 12/12/19 12:51 Patient reports: no new complaints, pain is less (No pain) and diarrhea Interval history: Patient had transgluteal drainage of pelvic abscess yesterday. Still has purulent drainage coming through the pigtail catheter. No particular complaints of pain from the drain. Feels a little better today. No abdominal pain but was not having any anyway. Having some diarrheal stools and urgency of stool. Review of Systems Review of Systems: All systems reviewed & are unremarkable except as noted in HPI and below Constitutional: Constitutional: Denies headache(s) ENT: Denies headache(s) Cardiovascular: Cardiovascular: Denies chest pain and Denies dyspnea Respiratory: Respiratory: Denies cough and Denies dyspnea Gastrointestinal: Gastrointestinal: Reports as per HPI Neurologic: Denies confusion and Denies headache(s) Psychiatric: Psychiatric: Denies confusion Exam Const: General: comfortable and no acute distress; No confusion Orientation/consciousness: patient oriented x3 and No confusion Resp: Effort & Inspection: normal respiratory effort Auscultation: clear to auscultation bilaterally Cardio: Rate: regular rate Rhythm: regular rhythm GI: Inspection: distended GI Palp: Yes Soft to palpation (Less distended and softer exam today), No Tenderness to palpation present (GI), No Guarding due to palpation present (GI) and No Rebound tenderness present Auscultation: absent bowel sounds Neuro: General: patient oriented x3, no focal motor deficits and No confusion Extrem: General: no calf tenderness and no edema Psych: Affect: normal affect Insight: Good insight present (Psych) Judgement: Good judgement present (Psych) Objective Data Vital Signs Vital Signs: Vital Signs - 24 hr 12/11/19 14:00 12/11/19 14:15 12/11/19 14:30 Temperature 36.4 C L 37.2 C Pulse Rate 97 97 98 Respiratory Rate 16 16 14 Blood Pressure 134/85 120/73 119/77 Pulse Oximetry 94 97 97 12/11/19 14:35 12/11/19 14:40 12/11/19 14:45 Temperature Pulse Rate 94 94 97 Respiratory Rate 15 15 14 Blood Pressure 108/70 107/71 99/80 L Pulse Oximetry 95 96 96 12/11/19 15:00 12/11/19 15:15 12/11/19 15:24 Temperature Pulse Rate 95 96 92 Respiratory Rate 14 15 16 Blood Pressure 117/92 H 120/80 Pulse Oximetry 95 93 12/11/19 15:30
[2019-12-12 13:04] LABS: Glucose Point of Care 154 (65-105)
--- NOTE | 2019-12-12 16:37 | PC.NURSE ---
Patient has not wanted to ambulate in the hallways today. Sites her diarrhea as the reason.
--- NOTE | 2019-12-12 16:58 | P.PNIM_ITS ---
Progress Note: A&P Assessment and Plan (1) Diverticulitis large intestine: Qualifiers: Diverticulitis bleeding: without bleeding Diverticulitis complication: with perforation Qualified Code(s): K57.20 - Diverticulitis of large intestine with perforation and abscess without bleeding Code(s): K57.32 - Diverticulitis of large intestine without perforation or abscess wi thout bleeding Status: Inactive Assessment and Plan: * with perforation, and now with abscess, IR placed drain today * Day 4 zosyn( researching MAR and previous meds it appears pt only received zosyn in ER! and now back on ) * Likely ileus * gastrograffin sbft possible obstructions so continued into the suction and TPN started 12/09 (2) Right lower lobe pneumonia: Qualifiers: Pneumonia type: due to unspecified organism Qualified Code(s): J18.9 - Pneumonia, unspecified organism Code(s): J18.9 - Pneumonia, unspecified organism Status: Acute Assessment and Plan: * Day 10 Zithromax & day 4 of Zosyn( d/c azithromycin 12/12) * Clinically improving (3) Pneumoperitoneum: Code(s): K66.8 - Other specified disorders of peritoneum Status: Resolved Assessment and Plan: * Due to diverticulitis * Attempting conservative management (4) Impaired glucose tolerance: Code(s): R73.02 - Impaired glucose tolerance (oral) Status: Acute Assessment and Plan: * Fam Hx diabetes (sister) * 12/04 D/w pt need for diabetic diet and increased activity when clinically able * Monitor sugars in the mean time * 12/05 FBS 118 * 12/06 FBS 115 * 12/07 FBS 117 * 12/08 FBS 120 * 12/09 FBS 138, A1c only 6.2 * 12/10 FBS 139 again * 12/11 FBS 140 even with TPN * continues to stay low (5) Hypokalemia: Code(s): E87.6 - Hypokalemia Status: Acute Assessment and Plan: * 12/05 added KCL to IVF * 12/06 K 4.0 * 12/07 4.5 * 12/08 4.3 * 12/09 3.9 resolved (6) DVT prophylaxis: Code(s): Z29.9 - Encounter for prophylactic measures, unspecified Status: Acute Assessment and Plan: Lovenox per surgery Subjective Date/time seen: 12/12/19 16:58 Interval history: Date of visit 12/12/2019. Minimal cough . No further emesis with NG, still bms.. No pain. SBF 12/10 contrast reaches colon but at least partial obstruction and ct 12/11 7 cm pelvic abscess. with obstruction. IR placed drain Exam Narrative: Exam Narrative: Blood pressure 120/74 pulse is 90, 95% RA afebrile HEENT: EOMI, NECK: No JVD or bruits CHEST: clear now HEART: NL S1/S2, regular, no murmur ABDOMEN: hypoactive BS, less protuberant but soft, non tender , no guarding EXTREMITIES: No cyanosis, edema, or clubbing NEUROLOGIC: CN intact and symmetric to inspection PSYCH: Alert. Oriented to person, place, and time. Objective Data Vital Signs Vital Signs: Vital Signs - 24 hr 12/11/19 19:47 12/11/19 20:00 12/11/19 20:06 Temperature 36.3 C L Pulse Rate 97 97 94 Respiratory Rate 17 17 16 Blood Pressure 123/78 Pulse Oximetry 93 93 12/11/19 20:15 12/12/19 01:00 12/12/19 01:12 Temperature Pulse Rate 94 96 96 Respiratory Rate 16 16 16 Blood Pressure Pulse Oximetry 12/12/19 05:05 12/12/19 08:59 12/12/19 09:11 Temperature 36.3 C L Pulse Rate 93 87 91 Respiratory Rate 18 18
--- NOTE | 2019-12-12 16:58 | PM.IMPN ---
Progress Note: A&P Assessment and Plan (1) Diverticulitis large intestine: Qualifiers: Diverticulitis bleeding: without bleeding Diverticulitis complication: with perforation Qualified Code(s): K57.20 - Diverticulitis of large intestine with perforation and abscess without bleeding Code(s): K57.32 - Diverticulitis of large intestine without perforation or abscess without bleeding Status: Inactive Assessment and Plan: with perforation, and now with abscess, IR placed drain today Day 4 zosyn( researching MAR and previous meds it appears pt only received zosyn in ER! and now back on ) Likely ileus gastrograffin sbft possible obstructions so continued into the suction and TPN started 12/09 (2) Right lower lobe pneumonia: Qualifiers: Pneumonia type: due to unspecified organism Qualified Code(s): J18.9 - Pneumonia, unspecified organism Code(s): J18.9 - Pneumonia, unspecified organism Status: Acute Assessment and Plan: Day 10 Zithromax & day 4 of Zosyn( d/c azithromycin 12/12) Clinically improving (3) Pneumoperitoneum: Code(s): K66.8 - Other specified disorders of peritoneum Status: Resolved Assessment and Plan: Due to diverticulitis Attempting conservative management (4) Impaired glucose tolerance: Code(s): R73.02 - Impaired glucose tolerance (oral) Status: Acute Assessment and Plan: Fam Hx diabetes (sister) 12/04 D/w pt need for diabetic diet and increased activity when clinically able Monitor sugars in the mean time 12/05 FBS 118 12/06 FBS 115 12/07 FBS 117 12/08 FBS 120 12/09 FBS 138, A1c only 6.2 12/10 FBS 139 again 12/11 FBS 140 even with TPN continues to stay low (5) Hypokalemia: Code(s): E87.6 - Hypokalemia Status: Acute Assessment and Plan: 12/05 added KCL to IVF 12/06 K 4.0 12/07 4.5 12/08 4.3 12/09 3.9 resolved (6) DVT prophylaxis: Code(s): Z29.9 - Encounter for prophylactic measures, unspecified Status: Acute Assessment and Plan: Lovenox per surgery Subjective Date/time seen: 12/12/19 16:58 Interval history: Date of visit 12/12/2019. Minimal cough . No further emesis with NG, still bms.. No pain. SBF 12/10 contrast reaches colon but at least partial obstruction and ct 12/11 7 cm pelvic abscess. with obstruction. IR placed drain Exam Narrative: Exam Narrative: Blood pressure 120/74 pulse is 90, 95% RA afebrile HEENT: EOMI, NECK: No JVD or bruits CHEST: clear now HEART: NL S1/S2, regular, no murmur ABDOMEN: hypoactive BS, less protuberant but soft, non tender , no guarding EXTREMITIES: No cyanosis, edema, or clubbing NEUROLOGIC: CN intact and symmetric to inspection PSYCH: Alert. Oriented to person, place, and time. Objective Data Vital Signs Vital Signs: Vital Signs - 24 hr 12/11/19 19:47 12/11/19 20:00 12/11/19 20:06 Temperature 36.3 C L Pulse Rate 97 97 94 Respiratory Rate 17 17 16 Blood Pressure 123/78 Pulse Oximetry 93 93 12/11/19 20:15 12/12/19 01:00 12/12/19 01:12 Temperature Pulse Rate 94 96 96 Respiratory Rate 16 16 16 Blood Pressure Pulse Oximetry 12/12/19 05:05 12/12/19 08:59 12/12/19 09:11 Temperature 36.3 C L Pulse Rate 93 87 91 Respiratory Rate 18 18 18 Blood Pressure 130/84 Pulse Oximetry 95 12/12/19 14:00 12/12/19 16:06 12/12/19 16:13 Temperature 36.3 C L Pulse Rate 90 78 80 Respiratory Rate 16 18 18 Blood Pressure 120/75 Pulse Oximetry 96 Intake/Output Intake/Output: Intake & Output 12/09/19 12/10/19 12/11/19 12/12/19 23:59 23:59 23:59 23:59 Intake Total 2068 2542 2948 1353 Output Total 1250 1500 588 280 Balance 818 1042 2360 1073 Meds/Results Medications: Active Medications Generic Name Dose Route Start Last Admin Trade Name Freq PRN Reason Stop Dose Admin Albuterol 5 mg 12/03/19 20:00 12/12/19 16:04 Albuterol Sulf Neb 2.5mg/0.5ml INHALATION 5
[2019-12-12] MEDS: FAT EMULSIONS IV 20% 250 ML 20 ML IVPB (17:29)
[2019-12-12 17:37] LABS: Glucose Point of Care 129 (65-105)
[2019-12-13] VITALS (11 sets, daily range): BP systolic 129–136; BP diastolic 82–85; PULSE 74–96; RESP 16–18; TEMP 36.4–36.9; O2SAT 94–95
[2019-12-13 01:07] LABS: Glucose Point of Care 124 (65-105)
[2019-12-13] MEDS: ALBUTEROL SULFATE NEB 2.5 MG/0.5 ML INH 5 MG INHALATION ×4 (01:33→19:35)
[2019-12-13] MEDS: IPRATROPIUM BR 0.02% INH SOLN 0.5 MG/2.5 ML VIAL INHALATION ×4 (01:33→19:35)
[2019-12-13] MEDS: metroNIDAZOLE 500 MG/ISO 100ML 500 MG/100 ML BAG 100 MG IVPB ×4 (05:41→23:33)
[2019-12-13 06:08] LABS: Hematocrit 32.2 % (37.0-47.0); Hemoglobin 10.6 g/dL (12.0-15.0); Mean Corpuscular HGB Conc 32.9 g/dl (32-36); Mean Corpuscular Hemoglobin 32.3 pg (26-34); Mean Corpuscular Volume 98.2 fl (80-100); Mean Platelet Volume 8.7 fl (7.4-10.4); Platelet Count Result 442 k/mm3 (150-375); Red Blood Count 3.28 M/mm3 (4.2-5.4); Red Cell Distribution Width 12.5 % (11.5-14.5); White Blood Count 9.3 K/mm3 (4.5-10.0)
[2019-12-13 06:18] LABS: Glucose Point of Care 130 (65-105)
[2019-12-13 06:20] LABS: Phosphorus 2.9 mg/dL (2.5-4.5)
[2019-12-13 06:21] LABS: Blood Urea Nitrogen 11 mg/dL (7-17); Calcium 8.5 mg/dL (8.4-10.2); Carbon Dioxide 26 mmol/L (22-30); Chloride 100 mmol/L (98-107); Estimated CRCL calculation 93 ml/min; Estimated Glomerular Filt Rate > 60; Glucose 131 mg/dL (65-105); Potassium 3.4 mmol/L (3.4-5.0); Sodium 134 mmol/L (137-145)
[2019-12-13] MEDS: ENOXAPARIN 40 MG/0.4 ML SYRINGE SUB-Q (08:31)
[2019-12-13] MEDS: FAMOTIDINE 20 MG/2 ML VIAL IV PUSH ×2 (08:31→21:24)
--- NOTE | 2019-12-13 10:48 | PM.PNGS ---
Progress Note: A&P Assessment and Plan (1) Diverticulitis of large intestine with abscess without bleeding: Code(s): K57.20 - Diverticulitis of large intestine with perforation and abscess without bleeding Status: Acute Assessment and Plan: Abscess successfully drained percutaneously with CT guidance on 12/11. patient's abdominal distention has improved. Her white blood cell count has decreased. She seems to feel better. Continue IV antibiotics and pigtail catheter drainage. Had small BM overnight. Hopefully small-bowel obstruction is resolving. (2) Small intestine obstruction: Code(s): K56.609 - Unspecified intestinal obstruction, unspecified as to partial versus complete obstruction Status: Acute Assessment and Plan: Abdomen less distended today. Hopefully obstruction will resolve. will try a clamping routine on NG tube for today. (3) Protein-calorie malnutrition, moderate: Code(s): E44.0 - Moderate protein-calorie malnutrition Status: Acute Assessment and Plan: Renew TPN. Patient still unable to eat. (4) Leukocytosis, unspecified: Code(s): D72.829 - Elevated white blood cell count, unspecified Status: Acute Assessment and Plan: Probably due to pelvic abscess or pneumonia. (5) Right lower lobe pneumonia: Qualifiers: Pneumonia type: due to unspecified organism Qualified Code(s): J18.9 - Pneumonia, unspecified organism Code(s): J18.9 - Pneumonia, unspecified organism Status: Acute Assessment and Plan: Continues on a Azithromycin. Subjective Subjective Date/Time Seen: 12/13/19 10:48 Patient lying in bed when I entered the room. She denies much abdominal pain. She states she has passed some flatus in the last 24 hours and had a very small BM. Denies walk in the pierce. I encouraged this. She has been walking in the room. She has had a hard time sleeping because of all the in and out for vitals, IV changes, and antibiotics. Review of Systems Constitutional: Constitutional: Reports no additional constitutional complaints ENT: Reports other (Mucous Membranes moist.) Cardiovascular: Cardiovascular: Denies dyspnea Respiratory: Respiratory: Reports cough, Denies pain on inspiration and Denies dyspnea Genitourinary: Genitourinary: Denies dysuria and Reports urinary urgency Musculoskeletal: Musculoskeletal: Reports other (No calf swelling or edema) Integumentary/Breasts: Skin/Breast: Reports system reviewed and no additional complaints, except as docu Exam GI: Inspection: distended GI Palp: Yes Soft to palpation and No Guarding due to palpation present (GI) Auscultation: Hypoactive bowel sounds present Rectal Exam: deferred : Other: Percutaneous drain exiting from the upper right buttock. Approximately 10-20 cc compressed out of the pillows into the bag today by myself. Dressing over the drain intact without signs of kinking or surrounding erythema at the exit site. Objective Data Vital Signs Vital Signs: Vital Signs - 24 hr 12/12/19 14:00 12/12/19 16:06 12/12/19 16:13 Temperature 36.3 C L Pulse Rate 90 78 80 Respiratory Rate 16 18 18 Blood Pressure 120/75 Pulse Oximetry 96 12/12/19 19:18 12/12/19 19:27 12/12/19 21:00 Temperature 36.7 C Pulse Rate 78 74 97 Respiratory Rate 18 14 Blood Pressure 133/79 Pulse Oximetry 93 12/13/19 01:34 12/13/19 01:43 12/13/19 06:00 Temperature 36.6 C Pulse Rate 74 78 92 Respiratory Rate 16 16 16 Blood Pressure 129/84 Pulse Oximetry 94 12/13/19 08:47 12/13/19 08:55 Temperature Pulse Rate 82 80 Respiratory Rate 16 16 Blood Pressure Pulse Oximetry Intake/Output Intake/Output: Intake & Output 12/10/19 12/11/19 12/12/19 12/13/19 23:59 23:59 23:59 23:59 Intake Total 2067 2427 1813 2016 Output Total 2386 228 280 850 Balance 1042 2360 1533 1166 Meds/Results Medications: Active Medications Generic
[2019-12-13 12:30] LABS: Glucose Point of Care 130 (65-105)
[2019-12-13] MEDS: FAT EMULSIONS IV 20% 250 ML 20 ML IVPB (16:41)
--- NOTE | 2019-12-13 17:16 | P.PNIM_ITS ---
Progress Note: A&P Assessment and Plan (1) Diverticulitis large intestine: Qualifiers: Diverticulitis bleeding: without bleeding Diverticulitis complication: with perforation Qualified Code(s): K57.20 - Diverticulitis of large intestine with perforation and abscess without bleeding Code(s): K57.32 - Diverticulitis of large intestine without perforation or abscess wi thout bleeding Status: Inactive Assessment and Plan: * with perforation, and now with abscess, IR placed drain today * Day 5 zosyn( researching MAR and previous meds it appears pt only received zosyn in ER! and now back on ) * Likely ileus resolving with partial obstruction also * gastrograffin sbft possible obstructions so continued NG suction and TPN started 12/09 * Surgery clamping tube and trial of clear liquids today 12/13 (2) Right lower lobe pneumonia: Qualifiers: Pneumonia type: due to unspecified organism Qualified Code(s): J18.9 - Pneumonia, unspecified organism Code(s): J18.9 - Pneumonia, unspecified organism Status: Acute Assessment and Plan: * Day 10 Zithromax & day 4 of Zosyn( d/c azithromycin 12/12) * Clinically improving (3) Pneumoperitoneum: Code(s): K66.8 - Other specified disorders of peritoneum Status: Resolved Assessment and Plan: * Due to diverticulitis * Attempting conservative management (4) Impaired glucose tolerance: Code(s): R73.02 - Impaired glucose tolerance (oral) Status: Acute Assessment and Plan: * Fam Hx diabetes (sister) * 12/04 D/w pt need for diabetic diet and increased activity when clinically able * Monitor sugars in the mean time * 12/05 FBS 118 * 12/06 FBS 115 * 12/07 FBS 117 * 12/08 FBS 120 * 12/09 FBS 138, A1c only 6.2 * 12/10 FBS 139 again * 12/11 FBS 140 even with TPN * continues to stay low (5) Hypokalemia: Code(s): E87.6 - Hypokalemia Status: Acute Assessment and Plan: * 12/05 added KCL to IVF * 12/06 K 4.0 * 12/07 4.5 * 12/08 4.3 * 12/09 3.9 resolved (6) DVT prophylaxis: Code(s): Z29.9 - Encounter for prophylactic measures, unspecified Status: Acute Assessment and Plan: Lovenox per surgery Subjective Date/time seen: 12/13/19 17:16 Interval history: Date of visit 12/13/2019. Minimal cough . No further emesis with NG, still bms.. No pain. SBF 12/10 contrast reaches colon but at least partial obstruction and ct 12/11 7 cm pelvic abscess. with obstruction. IR placed drain. Draining less from drain and having bowel movements and feeling better Exam Narrative: Exam Narrative: Blood pressure 134/84 pulse is 90, 95% RA afebrile HEENT: EOMI, NECK: No JVD or bruits CHEST: clear now HEART: NL S1/S2, regular, no murmur ABDOMEN: Bowel sounds slightly more prominent, less protuberant soft, non tender , no guarding EXTREMITIES: No cyanosis, edema, or clubbing NEUROLOGIC: CN intact and symmetric to inspection PSYCH: Alert. Oriented to person, place, and time. Objective Data Vital Signs Vital Signs: Vital Signs - 24 hr 12/12/19 19:18 12/12/19 19:27 12/12/19 21:00 Temperature 36.7 C Pulse Rate 78 74 97 Respiratory Rate 18 14 Blood Pressure 133/79 Pulse Oximetry 93 12/13/19 01:34 12/13/19 01:43 12/13/19 06:00 Temperature 36.6 C Pulse Rate 74 78 92 Respiratory Rate 16 16 16 Blood Pressure 129/84 Pul
--- NOTE | 2019-12-13 17:16 | PM.IMPN ---
Progress Note: A&P Assessment and Plan (1) Diverticulitis large intestine: Qualifiers: Diverticulitis bleeding: without bleeding Diverticulitis complication: with perforation Qualified Code(s): K57.20 - Diverticulitis of large intestine with perforation and abscess without bleeding Code(s): K57.32 - Diverticulitis of large intestine without perforation or abscess without bleeding Status: Inactive Assessment and Plan: with perforation, and now with abscess, IR placed drain today Day 5 zosyn( researching MAR and previous meds it appears pt only received zosyn in ER! and now back on ) Likely ileus resolving with partial obstruction also gastrograffin sbft possible obstructions so continued NG suction and TPN started 12/09 Surgery clamping tube and trial of clear liquids today 12/13 (2) Right lower lobe pneumonia: Qualifiers: Pneumonia type: due to unspecified organism Qualified Code(s): J18.9 - Pneumonia, unspecified organism Code(s): J18.9 - Pneumonia, unspecified organism Status: Acute Assessment and Plan: Day 10 Zithromax & day 4 of Zosyn( d/c azithromycin 12/12) Clinically improving (3) Pneumoperitoneum: Code(s): K66.8 - Other specified disorders of peritoneum Status: Resolved Assessment and Plan: Due to diverticulitis Attempting conservative management (4) Impaired glucose tolerance: Code(s): R73.02 - Impaired glucose tolerance (oral) Status: Acute Assessment and Plan: Fam Hx diabetes (sister) 12/04 D/w pt need for diabetic diet and increased activity when clinically able Monitor sugars in the mean time 12/05 FBS 118 12/06 FBS 115 12/07 FBS 117 12/08 FBS 120 12/09 FBS 138, A1c only 6.2 12/10 FBS 139 again 12/11 FBS 140 even with TPN continues to stay low (5) Hypokalemia: Code(s): E87.6 - Hypokalemia Status: Acute Assessment and Plan: 12/05 added KCL to IVF 12/06 K 4.0 12/07 4.5 12/08 4.3 12/09 3.9 resolved (6) DVT prophylaxis: Code(s): Z29.9 - Encounter for prophylactic measures, unspecified Status: Acute Assessment and Plan: Lovenox per surgery Subjective Date/time seen: 12/13/19 17:16 Interval history: Date of visit 12/13/2019. Minimal cough . No further emesis with NG, still bms.. No pain. SBF 12/10 contrast reaches colon but at least partial obstruction and ct 12/11 7 cm pelvic abscess. with obstruction. IR placed drain. Draining less from drain and having bowel movements and feeling better Exam Narrative: Exam Narrative: Blood pressure 134/84 pulse is 90, 95% RA afebrile HEENT: EOMI, NECK: No JVD or bruits CHEST: clear now HEART: NL S1/S2, regular, no murmur ABDOMEN: Bowel sounds slightly more prominent, less protuberant soft, non tender , no guarding EXTREMITIES: No cyanosis, edema, or clubbing NEUROLOGIC: CN intact and symmetric to inspection PSYCH: Alert. Oriented to person, place, and time. Objective Data Vital Signs Vital Signs: Vital Signs - 24 hr 12/12/19 19:18 12/12/19 19:27 12/12/19 21:00 Temperature 36.7 C Pulse Rate 78 74 97 Respiratory Rate 18 14 Blood Pressure 133/79 Pulse Oximetry 93 12/13/19 01:34 12/13/19 01:43 12/13/19 06:00 Temperature 36.6 C Pulse Rate 74 78 92 Respiratory Rate 16 16 16 Blood Pressure 129/84 Pulse Oximetry 94 12/13/19 08:47 12/13/19 08:55 12/13/19 13:14 Temperature Pulse Rate 82 80 84 Respiratory Rate 16 16 16 Blood Pressure Pulse Oximetry 12/13/19 13:18 12/13/19 14:00 Temperature 36.9 C Pulse Rate 86 96 Respiratory Rate 16 18 Blood Pressure 134/85 Pulse Oximetry 95 Intake/Output Intake/Output: Intake & Output 12/10/19 12/11/19 12/12/19 12/13/19 23:59 23:59 23:59 23:59 Intake Total 2548 6772 1813 2106 Output Total 7112 588 280 850 Balance 1042 0200 1533 1256 Meds/Results Medications: Active Medications Generic Name Dose Route Start Las
[2019-12-13 17:36] LABS: Triglycerides 62 mg/dL (<150)
[2019-12-13 18:04] LABS: Glucose Point of Care 124 (65-105)
[2019-12-14] VITALS (12 sets, daily range): BP systolic 118–136; BP diastolic 73–86; PULSE 63–96; RESP 16–20; TEMP 36.2–36.9; O2SAT 93–95
[2019-12-14] MEDS: ALBUTEROL SULFATE NEB 2.5 MG/0.5 ML INH 5 MG INHALATION ×4 (01:00→19:46)
[2019-12-14] MEDS: IPRATROPIUM BR 0.02% INH SOLN 0.5 MG/2.5 ML VIAL INHALATION ×4 (01:00→19:46)
[2019-12-14 01:33] LABS: Glucose Point of Care 144 (65-105)
[2019-12-14] MEDS: metroNIDAZOLE 500 MG/ISO 100ML 500 MG/100 ML BAG 100 MG IVPB ×4 (05:25→22:12)
[2019-12-14 06:15] LABS: Blood Urea Nitrogen 12 mg/dL (7-17); Calcium 8.5 mg/dL (8.4-10.2); Carbon Dioxide 26 mmol/L (22-30); Chloride 101 mmol/L (98-107); Estimated CRCL calculation 76 ml/min; Estimated Glomerular Filt Rate > 60; Glucose 142 mg/dL (65-105); Phosphorus 2.8 mg/dL (2.5-4.5); Potassium 3.6 mmol/L (3.4-5.0); Sodium 136 mmol/L (137-145)
[2019-12-14 06:44] LABS: Hematocrit 33.4 % (37.0-47.0); Hemoglobin 10.9 g/dL (12.0-15.0); Mean Corpuscular HGB Conc 32.6 g/dl (32-36); Mean Corpuscular Hemoglobin 32.4 pg (26-34); Mean Corpuscular Volume 99.4 fl (80-100); Mean Platelet Volume 9.1 fl (7.4-10.4); Platelet Count Result 556 k/mm3 (150-375); Red Blood Count 3.36 M/mm3 (4.2-5.4); Red Cell Distribution Width 12.6 % (11.5-14.5)
[2019-12-14 07:25] LABS: Glucose Point of Care 150 (65-105)
[2019-12-14] MEDS: ENOXAPARIN 40 MG/0.4 ML SYRINGE SUB-Q (09:36)
[2019-12-14] MEDS: FAMOTIDINE 20 MG/2 ML VIAL IV PUSH ×2 (09:36→22:13)
[2019-12-14 11:43] LABS: Glucose Point of Care 134 (65-105)
--- NOTE | 2019-12-14 13:39 | P.PNIM_ITS ---
Progress Note: A&P Assessment and Plan (1) Diverticulitis large intestine: Qualifiers: Diverticulitis bleeding: without bleeding Diverticulitis complication: with perforation Qualified Code(s): K57.20 - Diverticulitis of large intestine with perforation and abscess without bleeding Code(s): K57.32 - Diverticulitis of large intestine without perforation or abscess wi thout bleeding Status: Inactive Assessment and Plan: * with perforation, and now with abscess, IR placed drain 12/11 * Day 6 zosyn( researching MAR and previous meds it appears pt only received zosyn in ER! and now back on ) * Likely ileus resolving with partial obstruction also * gastrograffin sbft possible obstructions so continued NG suction and TPN started 12/09 * Surgery clamping tube and tolerating clear liquids started 12/13 * KUB today still distended small bowel (2) Right lower lobe pneumonia: Qualifiers: Pneumonia type: due to unspecified organism Qualified Code(s): J18.9 - Pneumonia, unspecified organism Code(s): J18.9 - Pneumonia, unspecified organism Status: Acute Assessment and Plan: * 10 days Zithromax completed & day 6 of Zosyn( d/c azithromycin 12/12) * Clinically improved * minimal cough (3) Pneumoperitoneum: Code(s): K66.8 - Other specified disorders of peritoneum Status: Resolved Assessment and Plan: * Due to diverticulitis * Attempting conservative management (4) Impaired glucose tolerance: Code(s): R73.02 - Impaired glucose tolerance (oral) Status: Acute Assessment and Plan: * Fam Hx diabetes (sister) * 12/04 D/w pt need for diabetic diet and increased activity when clinically able * Monitor sugars in the mean time * 12/05 FBS 118 * 12/06 FBS 115 * 12/07 FBS 117 * 12/08 FBS 120 * 12/09 FBS 138, A1c only 6.2 * 12/10 FBS 139 again * 12/11 FBS 140 even with TPN * continues to stay low (5) Hypokalemia: Code(s): E87.6 - Hypokalemia Status: Acute Assessment and Plan: * 12/05 added KCL to IVF * 12/06 K 4.0 * 12/07 4.5 * 12/08 4.3 * 12/09 3.9 resolved (6) DVT prophylaxis: Code(s): Z29.9 - Encounter for prophylactic measures, unspecified Status: Acute Assessment and Plan: Lovenox per surgery Subjective Date/time seen: 12/14/19 13:39 Interval history: Date of visit 12/14/2019. Minimal cough . No further emesis with NG, still bms.. No pain. SBF 12/10 contrast reaches colon but at least partial obstruction and ct 12/11 7 cm pelvic abscess. with obstruction. IR placed drain 12/11. Draining less from drain and having bowel movements and feeling better tolerating some clear liquids Exam Narrative: Exam Narrative: Blood pressure 136/86 pulse is 90, 95% RA afebrile HEENT: EOMI, NECK: No JVD or bruits CHEST: clear now HEART: NL S1/S2, regular, no murmur ABDOMEN: Bowel sounds still decreased, less protuberant soft, non tender , no guarding EXTREMITIES: No cyanosis, edema, or clubbing NEUROLOGIC: CN intact and symmetric to inspection PSYCH: Alert. Oriented to person, place, and time. Objective Data Vital Signs Vital Signs: Vital Signs - 24 hr 12/13/19 14:00 12/13/19 19:35 12/13/19 19:45 Temperature 36.9 C Pulse Rate 96 87 87 Respiratory Rate 18 16 16 Blood Pressure 134/85 Pulse Oximetry 95 12/13/19 21:14 12/14/19 01:00 12/14/19 01:10 Temperature 36.4 C L
--- NOTE | 2019-12-14 13:39 | PM.IMPN ---
Progress Note: A&P Assessment and Plan (1) Diverticulitis large intestine: Qualifiers: Diverticulitis bleeding: without bleeding Diverticulitis complication: with perforation Qualified Code(s): K57.20 - Diverticulitis of large intestine with perforation and abscess without bleeding Code(s): K57.32 - Diverticulitis of large intestine without perforation or abscess without bleeding Status: Inactive Assessment and Plan: with perforation, and now with abscess, IR placed drain 12/11 Day 6 zosyn( researching MAR and previous meds it appears pt only received zosyn in ER! and now back on ) Likely ileus resolving with partial obstruction also gastrograffin sbft possible obstructions so continued NG suction and TPN started 12/09 Surgery clamping tube and tolerating clear liquids started 12/13 KUB today still distended small bowel (2) Right lower lobe pneumonia: Qualifiers: Pneumonia type: due to unspecified organism Qualified Code(s): J18.9 - Pneumonia, unspecified organism Code(s): J18.9 - Pneumonia, unspecified organism Status: Acute Assessment and Plan: 10 days Zithromax completed & day 6 of Zosyn( d/c azithromycin 12/12) Clinically improved minimal cough (3) Pneumoperitoneum: Code(s): K66.8 - Other specified disorders of peritoneum Status: Resolved Assessment and Plan: Due to diverticulitis Attempting conservative management (4) Impaired glucose tolerance: Code(s): R73.02 - Impaired glucose tolerance (oral) Status: Acute Assessment and Plan: Fam Hx diabetes (sister) 12/04 D/w pt need for diabetic diet and increased activity when clinically able Monitor sugars in the mean time 12/05 FBS 118 12/06 FBS 115 12/07 FBS 117 12/08 FBS 120 12/09 FBS 138, A1c only 6.2 12/10 FBS 139 again 12/11 FBS 140 even with TPN continues to stay low (5) Hypokalemia: Code(s): E87.6 - Hypokalemia Status: Acute Assessment and Plan: 12/05 added KCL to IVF 12/06 K 4.0 12/07 4.5 12/08 4.3 12/09 3.9 resolved (6) DVT prophylaxis: Code(s): Z29.9 - Encounter for prophylactic measures, unspecified Status: Acute Assessment and Plan: Lovenox per surgery Subjective Date/time seen: 12/14/19 13:39 Interval history: Date of visit 12/14/2019. Minimal cough . No further emesis with NG, still bms.. No pain. SBF 12/10 contrast reaches colon but at least partial obstruction and ct 12/11 7 cm pelvic abscess. with obstruction. IR placed drain 12/11. Draining less from drain and having bowel movements and feeling better tolerating some clear liquids Exam Narrative: Exam Narrative: Blood pressure 136/86 pulse is 90, 95% RA afebrile HEENT: EOMI, NECK: No JVD or bruits CHEST: clear now HEART: NL S1/S2, regular, no murmur ABDOMEN: Bowel sounds still decreased, less protuberant soft, non tender , no guarding EXTREMITIES: No cyanosis, edema, or clubbing NEUROLOGIC: CN intact and symmetric to inspection PSYCH: Alert. Oriented to person, place, and time. Objective Data Vital Signs Vital Signs: Vital Signs - 24 hr 12/13/19 14:00 12/13/19 19:35 12/13/19 19:45 Temperature 36.9 C Pulse Rate 96 87 87 Respiratory Rate 18 16 16 Blood Pressure 134/85 Pulse Oximetry 95 12/13/19 21:14 12/14/19 01:00 12/14/19 01:10 Temperature 36.4 C L Pulse Rate 95 88 83 Respiratory Rate 16 16 16 Blood Pressure 136/82 Pulse Oximetry 94 12/14/19 05:17 12/14/19 07:37 12/14/19 07:57 Temperature 36.9 C Pulse Rate 90 86 91 Respiratory Rate 18 16 16 Blood Pressure 136/86 Pulse Oximetry 95 12/14/19 13:28 Temperature Pulse Rate 96 Respiratory Rate 20 Blood Pressure Pulse Oximetry Intake/Output Intake/Output: Intake & Output 12/11/19 12/12/19 12/13/19 12/14/19 23:59 23:59 23:59 23:59 Intake Total 2948 1813 3152 1560 Output Total 588 280 850 865 Balance 2360 1534 2308 695 Meds/Res
[2019-12-14] MEDS: MAGNESIUM HYDROXIDE SUSP 30 ML UDC FEED TUBE (15:35)
--- NOTE | 2019-12-14 16:01 | PM.PNGS ---
Progress Note: A&P Assessment and Plan (1) Diverticulitis of large intestine with abscess without bleeding: Code(s): K57.20 - Diverticulitis of large intestine with perforation and abscess without bleeding Status: Acute Assessment and Plan: Abscess successfully drained percutaneously with CT guidance on 12/11. patient's abdominal distention has continued to improve. Her white blood cell count has decreased. She seems to feel better. Continue IV antibiotics and pigtail catheter drainage. Had several small BM's overnight. Hopefully small-bowel obstruction is resolving However, KUB still indicating dilated loops of small bowel. (2) Small intestine obstruction: Code(s): K56.609 - Unspecified intestinal obstruction, unspecified as to partial versus complete obstruction Status: Acute Assessment and Plan: Abdomen less distended today. Hopefully obstruction will resolve. will contiue clamping routine on NG tube for today. (3) Protein-calorie malnutrition, moderate: Code(s): E44.0 - Moderate protein-calorie malnutrition Status: Acute Assessment and Plan: Renew TPN. Patient still unable to eat. (4) Leukocytosis, unspecified: Code(s): D72.829 - Elevated white blood cell count, unspecified Status: Acute Assessment and Plan: Probably due to pelvic abscess or pneumonia. (5) Right lower lobe pneumonia: Qualifiers: Pneumonia type: due to unspecified organism Qualified Code(s): J18.9 - Pneumonia, unspecified organism Code(s): J18.9 - Pneumonia, unspecified organism Status: Acute Assessment and Plan: Continues on a Azithromycin. Subjective Subjective Date/Time Seen: 12/14/19 16:01 Patient reports: no new complaints, feels better, flatus and bowel movement ( Usually having small loose stools with each urination) Interval history: patient denies nausea. She has tolerated the clamping of her NG for 3 of 4 hours since yesterday afternoon. She is walking in the halls. Denies much abdominal pain. Still complaining about her cough. Review of Systems Genitourinary: Genitourinary: Denies dysuria and Reports urinary urgency Musculoskeletal: Musculoskeletal: Reports other (No calf swelling or edema) Exam GI: Auscultation: normal bowel sounds Other: Abdomen still slightly rounded but not as distended as yesterday. I checked percutaneous drain and was able to express about 20 cc of the pillows down into the bag. It is still a grayish green purulent color. Objective Data Vital Signs Vital Signs: Vital Signs - 24 hr 12/13/19 19:35 12/13/19 19:45 12/13/19 21:14 Temperature 36.4 C L Pulse Rate 87 87 95 Respiratory Rate 16 16 16 Blood Pressure 136/82 Pulse Oximetry 94 12/14/19 01:00 12/14/19 01:10 12/14/19 05:17 Temperature 36.9 C Pulse Rate 88 83 90 Respiratory Rate 16 16 18 Blood Pressure 136/86 Pulse Oximetry 95 12/14/19 07:37 12/14/19 07:57 12/14/19 13:28 Temperature Pulse Rate 86 91 96 Respiratory Rate 16 16 20 Blood Pressure Pulse Oximetry 12/14/19 13:40 12/14/19 14:00 Temperature 36.2 C L Pulse Rate 63 88 Respiratory Rate 20 18 Blood Pressure 122/77 Pulse Oximetry 94 Intake/Output Intake/Output: Intake & Output 12/11/19 12/12/19 12/13/19 12/14/19 23:59 23:59 23:59 23:59 Intake Total 2948 1813 3152 1560 Output Total 588 280 850 965 Balance 2360 1533 2302 595 Meds/Results Medications: Active Medications Generic Name Dose Route Start Last Admin Trade Name Freq PRN Reason Stop Dose Admin Albuterol 5 mg 12/03/19 20:00 12/14/19 13:32 Albuterol Sulf Neb 2.5mg/0.5ml INHALATION 5 mg Q6HRT DINESH Administration Enoxaparin Sodium 40 mg 12/04/19 09:00 12/14/19 09:36 Lovenox SUB-Q 40 mg DAILY DINESH Administration Famotidine 20 mg 12/08/19 21:00 12/14/19 09:36 Pepcid Iv IV PUSH 20 mg Q12HR DINESH Administration Dextrose 1,000 mls
[2019-12-14] MEDS: FAT EMULSIONS IV 20% 250 ML 21 ML IVPB (17:00)
[2019-12-14 18:28] LABS: Glucose Point of Care 129 (65-105)
[2019-12-14 23:19] LABS: Glucose Point of Care 145 (65-105)
[2019-12-15] VITALS (9 sets, daily range): BP systolic 128–135; BP diastolic 73–83; PULSE 90–97; RESP 16–20; TEMP 36.4–36.6; O2SAT 93–96
[2019-12-15] MEDS: ALBUTEROL SULFATE NEB 2.5 MG/0.5 ML INH 5 MG INHALATION ×3 (03:10→22:03)
[2019-12-15] MEDS: IPRATROPIUM BR 0.02% INH SOLN 0.5 MG/2.5 ML VIAL INHALATION ×3 (03:10→22:02)
[2019-12-15] MEDS: metroNIDAZOLE 500 MG/ISO 100ML 500 MG/100 ML BAG 100 MG IVPB ×4 (05:25→22:49)
[2019-12-15 07:01] LABS: Hematocrit 32.4 % (37.0-47.0); Hemoglobin 10.6 g/dL (12.0-15.0); Mean Corpuscular HGB Conc 32.7 g/dl (32-36); Mean Corpuscular Hemoglobin 32.6 pg (26-34); Mean Corpuscular Volume 99.7 fl (80-100); Mean Platelet Volume 8.9 fl (7.4-10.4); Platelet Count Result 614 k/mm3 (150-375); Red Blood Count 3.25 M/mm3 (4.2-5.4); Red Cell Distribution Width 12.6 % (11.5-14.5); White Blood Count 11.1 K/mm3 (4.5-10.0)
[2019-12-15 07:14] LABS: Magnesium 2.2 mg/dL (1.6-2.3); Phosphorus 2.8 mg/dL (2.5-4.5)
[2019-12-15 07:16] LABS: Blood Urea Nitrogen 14 mg/dL (7-17); Calcium 8.4 mg/dL (8.4-10.2); Carbon Dioxide 26 mmol/L (22-30); Chloride 100 mmol/L (98-107); Estimated CRCL calculation 93 ml/min; Estimated Glomerular Filt Rate > 60; Glucose 153 mg/dL (65-105); INR 1.2; Potassium 3.6 mmol/L (3.4-5.0); Prothrombin Time 14.5 Seconds (11.1-14.7); Sodium 133 mmol/L (137-145)
[2019-12-15 07:21] LABS: Transferrin 177 mg/dL (206-381)
[2019-12-15 07:27] LABS: Partial Thromboplastin Time 28.9 SECONDS (22.3-36.8)
[2019-12-15 07:41] LABS: Glucose Point of Care 173 (65-105)
--- NOTE | 2019-12-15 08:21 | PM.PNGS ---
Progress Note: A&P Assessment and Plan (1) Diverticulitis of large intestine with abscess without bleeding: Code(s): K57.20 - Diverticulitis of large intestine with perforation and abscess without bleeding Status: Acute Assessment and Plan: abscess drainage working well. Only 3 cc of output from drain since midnight. Not sure if small-bowel obstruction has resolved or not. (2) Protein-calorie malnutrition, moderate: Code(s): E44.0 - Moderate protein-calorie malnutrition Status: Acute Assessment and Plan: Continue TPN. (3) Leukocytosis, unspecified: Code(s): D72.829 - Elevated white blood cell count, unspecified Status: Acute Assessment and Plan: White blood cell count back up to 11,000 today. (4) Small intestine obstruction: Code(s): K56.609 - Unspecified intestinal obstruction, unspecified as to partial versus complete obstruction Status: Acute Assessment and Plan: Still slightly distended with hypoactive bowel sounds. Will get Gastrografin upper GI small-bowel follow-through today. If no better than the last study, she will need laparotomy. (5) Right lower lobe pneumonia: Qualifiers: Pneumonia type: due to unspecified organism Qualified Code(s): J18.9 - Pneumonia, unspecified organism Code(s): J18.9 - Pneumonia, unspecified organism Status: Acute Assessment and Plan: Continues on Azithromycin. Subjective Subjective Date/Time Seen: 12/15/19 08:21 Patient reports: no new complaints, pain is less ( no abdominal pain), tolerating liquids well ( clear liquids) and bowel movement Review of Systems Review of Systems: All systems reviewed & are unremarkable except as noted in HPI and below Constitutional: Constitutional: Denies headache(s) ENT: Denies headache(s) Cardiovascular: Cardiovascular: Denies chest pain and Denies dyspnea Respiratory: Respiratory: Denies cough and Denies dyspnea Gastrointestinal: Gastrointestinal: Reports as per HPI Neurologic: Denies confusion and Denies headache(s) Psychiatric: Psychiatric: Denies confusion Exam Const: General: comfortable and no acute distress; No confusion Orientation/consciousness: patient oriented x3 and No confusion Resp: Effort & Inspection: normal respiratory effort Auscultation: clear to auscultation bilaterally Cardio: Rate: regular rate Rhythm: regular rhythm GI: Inspection: distended GI Palp: Yes Soft to palpation, No Tenderness to palpation present (GI), No Guarding due to palpation present (GI) and No Rebound tenderness present Auscultation: Hypoactive bowel sounds present Neuro: General: patient oriented x3, no focal motor deficits and No confusion Extrem: General: no calf tenderness and no edema Psych: Affect: normal affect Insight: Good insight present (Psych) Judgement: Good judgement present (Psych) Objective Data Vital Signs Vital Signs: Vital Signs - 24 hr 12/14/19 13:28 12/14/19 13:40 12/14/19 14:00 Temperature 36.2 C L Pulse Rate 96 63 88 Respiratory Rate 20 20 18 Blood Pressure 122/77 Pulse Oximetry 94 12/14/19 19:48 12/14/19 19:58 12/14/19 22:00 Temperature 36.5 C Pulse Rate 90 94 90 Respiratory Rate 16 16 16 Blood Pressure 118/73 Pulse Oximetry 93 12/14/19 22:10 12/15/19 03:11 12/15/19 03:19 Temperature Pulse Rate 90 96 92 Respiratory Rate 16 18 18 Blood Pressure Pulse Oximetry 93 12/15/19 06:00 Temperature 36.6 C Pulse Rate 97 Respiratory Rate 16 Blood Pressure 135/83 Pulse Oximetry 96 Intake/Output Intake/Output: Intake & Output 12/12/19 12/13/19 12/14/19 12/15/19 23:59 23:59 23:59 23:59 Intake Total 1813 3152 2280 1595 Output Total 998 282 1211 3 Balance 1533 2302 1145 1592 Meds/Results Medications: Active Medications Generic Name Dose Route Start Last Admin Trade Name Freq PRN Reason Stop Dose Admin Albuterol 5 mg 12/03/19 20:00 0
[2019-12-15] MEDS: FAMOTIDINE 20 MG/2 ML VIAL IV PUSH ×2 (12:51→22:50)
[2019-12-15] MEDS: ENOXAPARIN 40 MG/0.4 ML SYRINGE SUB-Q (12:51)
[2019-12-15 13:03] LABS: Glucose Point of Care 126 (65-105)
--- NOTE | 2019-12-15 15:47 | P.PNIM_ITS ---
Progress Note: A&P Assessment and Plan (1) Diverticulitis large intestine: Qualifiers: Diverticulitis bleeding: without bleeding Diverticulitis complication: with perforation Qualified Code(s): K57.20 - Diverticulitis of large intestine with perforation and abscess without bleeding Code(s): K57.32 - Diverticulitis of large intestine without perforation or abscess wi thout bleeding Status: Inactive Assessment and Plan: * with perforation, and now with abscess, IR placed drain 12/11 * Day 7 zosyn( researching MAR and previous meds it appears pt only received zosyn in ER! and now back on ) * Likely ileus resolving with partial obstruction also as seen on SBF today * TPN started 12/09 and albumin 3.7 today * Surgery clamping tube and tolerating clear liquids started 12/13 * KUB 12/14 still distended small bowel and seen on SBF today too (2) Right lower lobe pneumonia: Qualifiers: Pneumonia type: due to unspecified organism Qualified Code(s): J18.9 - Pneumonia, unspecified organism Code(s): J18.9 - Pneumonia, unspecified organism Status: Acute Assessment and Plan: * 10 days Zithromax completed & day 7 of Zosyn( d/c azithromycin 12/12) * Clinically improved * minimal cough (3) Pneumoperitoneum: Code(s): K66.8 - Other specified disorders of peritoneum Status: Resolved Assessment and Plan: * Due to diverticulitis * Attempting conservative management (4) Impaired glucose tolerance: Code(s): R73.02 - Impaired glucose tolerance (oral) Status: Acute Assessment and Plan: * Fam Hx diabetes (sister) * 12/04 D/w pt need for diabetic diet and increased activity when clinically able * Monitor sugars in the mean time * 12/05 FBS 118 * 12/06 FBS 115 * 12/07 FBS 117 * 12/08 FBS 120 * 12/09 FBS 138, A1c only 6.2 * 12/10 FBS 139 again * 12/11 FBS 140 even with TPN * continues to stay low (5) Hypokalemia: Code(s): E87.6 - Hypokalemia Status: Acute Assessment and Plan: * 12/05 added KCL to IVF * 12/06 K 4.0 * 12/07 4.5 * 12/08 4.3 * 12/09 3.9 resolved (6) DVT prophylaxis: Code(s): Z29.9 - Encounter for prophylactic measures, unspecified Status: Acute Assessment and Plan: Lovenox per surgery Subjective Date/time seen: 12/15/19 15:47 Interval history: Date of visit 12/15/2019. Minimal cough . No further emesis with NG, still bms.after gastrograffin UBI today. No pain. ct 12/11 7 cm pelvic abscess. with obstruction. IR placed drain 12/11. Draining less from drain and having bowel movements and feeling better tolerating some clear liquids SBF today still dilated small B with at least partial obstruction. Exam Narrative: Exam Narrative: Blood pressure 106/62 pulse is 80, 97% RA a febrile HEENT: EOMI, NECK: No JVD or bruits CHEST: clear now HEART: NL S1/S2, regular, no murmur ABDOMEN: Bowel sounds still decreased, less protuberant soft, non tender , no guarding EXTREMITIES: No cyanosis, edema, or clubbing NEUROLOGIC: CN intact and symmetric to inspection PSYCH: Alert. Oriented to person, place, and time. Objective Data Vital Signs Vital Signs: Vital Signs - 24 hr 12/14/19 19:48 12/14/19 19:58 12/14/19 22:00 Temperature 36.5 C Pulse Rate 90 94 90 Respiratory Rate 16 16 16 Blood Pressure 118/73 Pulse Oximetry 93 12/14/19 22:10 12/15/19 03:11 12/15/19 03:19
--- NOTE | 2019-12-15 15:47 | PM.IMPN ---
Progress Note: A&P Assessment and Plan (1) Diverticulitis large intestine: Qualifiers: Diverticulitis bleeding: without bleeding Diverticulitis complication: with perforation Qualified Code(s): K57.20 - Diverticulitis of large intestine with perforation and abscess without bleeding Code(s): K57.32 - Diverticulitis of large intestine without perforation or abscess without bleeding Status: Inactive Assessment and Plan: with perforation, and now with abscess, IR placed drain 12/11 Day 7 zosyn( researching MAR and previous meds it appears pt only received zosyn in ER! and now back on ) Likely ileus resolving with partial obstruction also as seen on SBF today TPN started 12/09 and albumin 3.7 today Surgery clamping tube and tolerating clear liquids started 12/13 KUB 12/14 still distended small bowel and seen on SBF today too (2) Right lower lobe pneumonia: Qualifiers: Pneumonia type: due to unspecified organism Qualified Code(s): J18.9 - Pneumonia, unspecified organism Code(s): J18.9 - Pneumonia, unspecified organism Status: Acute Assessment and Plan: 10 days Zithromax completed & day 7 of Zosyn( d/c azithromycin 12/12) Clinically improved minimal cough (3) Pneumoperitoneum: Code(s): K66.8 - Other specified disorders of peritoneum Status: Resolved Assessment and Plan: Due to diverticulitis Attempting conservative management (4) Impaired glucose tolerance: Code(s): R73.02 - Impaired glucose tolerance (oral) Status: Acute Assessment and Plan: Fam Hx diabetes (sister) 12/04 D/w pt need for diabetic diet and increased activity when clinically able Monitor sugars in the mean time 12/05 FBS 118 12/06 FBS 115 12/07 FBS 117 12/08 FBS 120 12/09 FBS 138, A1c only 6.2 12/10 FBS 139 again 12/11 FBS 140 even with TPN continues to stay low (5) Hypokalemia: Code(s): E87.6 - Hypokalemia Status: Acute Assessment and Plan: 12/05 added KCL to IVF 12/06 K 4.0 12/07 4.5 12/08 4.3 12/09 3.9 resolved (6) DVT prophylaxis: Code(s): Z29.9 - Encounter for prophylactic measures, unspecified Status: Acute Assessment and Plan: Lovenox per surgery Subjective Date/time seen: 12/15/19 15:47 Interval history: Date of visit 12/15/2019. Minimal cough . No further emesis with NG, still bms.after gastrograffin UBI today. No pain. ct 12/11 7 cm pelvic abscess. with obstruction. IR placed drain 12/11. Draining less from drain and having bowel movements and feeling better tolerating some clear liquids SBF today still dilated small B with at least partial obstruction. Exam Narrative: Exam Narrative: Blood pressure 106/62 pulse is 80, 97% RA afebrile HEENT: EOMI, NECK: No JVD or bruits CHEST: clear now HEART: NL S1/S2, regular, no murmur ABDOMEN: Bowel sounds still decreased, less protuberant soft, non tender , no guarding EXTREMITIES: No cyanosis, edema, or clubbing NEUROLOGIC: CN intact and symmetric to inspection PSYCH: Alert. Oriented to person, place, and time. Objective Data Vital Signs Vital Signs: Vital Signs - 24 hr 12/14/19 19:48 12/14/19 19:58 12/14/19 22:00 Temperature 36.5 C Pulse Rate 90 94 90 Respiratory Rate 16 16 16 Blood Pressure 118/73 Pulse Oximetry 93 12/14/19 22:10 12/15/19 03:11 12/15/19 03:19 Temperature Pulse Rate 90 96 92 Respiratory Rate 16 18 18 Blood Pressure Pulse Oximetry 93 12/15/19 06:00 12/15/19 08:05 12/15/19 14:00 Temperature 36.6 C 36.6 C Pulse Rate 97 90 95 Respiratory Rate 16 20 18 Blood Pressure 135/83 133/82 Pulse Oximetry 96 93 93 12/15/19 14:42 Temperature Pulse Rate 90 Respiratory Rate 20 Blood Pressure Pulse Oximetry Intake/Output Intake/Output: Intake & Output 12/12/19 12/13/19 12/14/19 12/15/19 23:59 23:59 23:59 23:59 Intake Total 1813 3152 2280 2165 Output Total 518 512 1680 3 Balance
[2019-12-15] MEDS: FAT EMULSIONS IV 20% 250 ML 20.8 ML IVPB (17:50)
[2019-12-15 18:00] LABS: Triglycerides 95 mg/dL (<150)
[2019-12-15 18:02] LABS: Glucose Point of Care 131 (65-105)
[2019-12-16] MEDS: metroNIDAZOLE 500 MG/ISO 100ML 500 MG/100 ML BAG 100 MG IVPB ×4 (05:23→22:41)
[2019-12-16 05:29] LABS: Glucose Point of Care 123 (65-105)
--- NOTE | 2019-12-16 05:38 | PC.NURSE ---
Pt had about 200mL in ice chips
[2019-12-16 05:52] LABS: Hematocrit 33.2 % (37.0-47.0); Hemoglobin 10.7 g/dL (12.0-15.0); Mean Corpuscular HGB Conc 32.2 g/dl (32-36); Mean Corpuscular Hemoglobin 32.3 pg (26-34); Mean Corpuscular Volume 100.3 fl (80-100); Mean Platelet Volume 8.9 fl (7.4-10.4); Platelet Count Result 697 k/mm3 (150-375); Red Blood Count 3.31 M/mm3 (4.2-5.4); Red Cell Distribution Width 12.7 % (11.5-14.5); White Blood Count 9.2 K/mm3 (4.5-10.0)
[2019-12-16 06:00] VITALS: BP 134/82; PULSE 89; RESP 16; TEMP 36.6; O2SAT 95
[2019-12-16 06:06] LABS: Alanine Aminotransferase 66 U/L (4-35); Albumin Level 3.2 g/dL (3.5-5.1); Alkaline Phosphatase 111 U/L (38-126); Aspartate Amino Transferase 60 U/L (14-36); Bilirubin,Total 0.2 mg/dL (0.2-1.3); Blood Urea Nitrogen 21 mg/dL (7-17); Calcium 8.6 mg/dL (8.4-10.2); Carbon Dioxide 25 mmol/L (22-30); Chloride 104 mmol/L (98-107); Estimated CRCL calculation 76 ml/min; Estimated Glomerular Filt Rate > 60; Glucose 138 mg/dL (65-105); Potassium 3.7 mmol/L (3.4-5.0); Sodium 138 mmol/L (137-145)
--- NOTE | 2019-12-16 07:14 | PM.PNGS ---
Progress Note: A&P Assessment and Plan (1) Small intestine obstruction: Code(s): K56.609 - Unspecified intestinal obstruction, unspecified as to partial versus complete obstruction Status: Acute Assessment and Plan: Clinically she has normal bowel sounds and no abdominal distention this morning. She had multiple bowel movements after her study. Will go ahead and DC her NG and try full liquids. Advance diet very slowly. (2) Leukocytosis, unspecified: Code(s): D72.829 - Elevated white blood cell count, unspecified Status: Acute Assessment and Plan: White blood cell [place] [id number] this morning. Continue to monitor. (3) Protein-calorie malnutrition, moderate: Code(s): E44.0 - Moderate protein-calorie malnutrition Status: Acute Assessment and Plan: Continue TPN for now. (4) Diverticulitis of large intestine with abscess without bleeding: Code(s): K57.20 - Diverticulitis of large intestine with perforation and abscess without bleeding Status: Acute Assessment and Plan: Abscess drained and very little out the drainage catheter last 24 hours. Continue Zosyn and metronidazole. (5) Right lower lobe pneumonia: Qualifiers: Pneumonia type: due to unspecified organism Qualified Code(s): J18.9 - Pneumonia, unspecified organism Code(s): J18.9 - Pneumonia, unspecified organism Status: Resolved Assessment and Plan: Seems to be resolved. Azithromycin and has been stopped Subjective Subjective Date/Time Seen: 12/16/19 07:14 Patient reports: no new complaints, pain is less (No pain again.), bowel movement ( Multiple BMs after water-soluble upper GI small-bowel follow-through yesterday) and afebrile Review of Systems Review of Systems: All systems reviewed & are unremarkable except as noted in HPI and below Constitutional: Constitutional: Denies headache(s) ENT: Denies headache(s) Cardiovascular: Cardiovascular: Denies chest pain and Denies dyspnea Respiratory: Respiratory: Denies cough and Denies dyspnea Gastrointestinal: Gastrointestinal: Reports as per HPI Neurologic: Denies confusion and Denies headache(s) Psychiatric: Psychiatric: Denies confusion Exam Const: General: comfortable and no acute distress; No confusion Orientation/consciousness: patient oriented x3 and No confusion Resp: Effort & Inspection: normal respiratory effort Auscultation: clear to auscultation bilaterally Cardio: Rate: regular rate Rhythm: regular rhythm GI: Inspection: non-distended GI Palp: Yes Soft to palpation, No Tenderness to palpation present (GI), No Guarding due to palpation present (GI) and No Rebound tenderness present Auscultation: normal bowel sounds Neuro: General: patient oriented x3, no focal motor deficits and No confusion Extrem: General: no calf tenderness and no edema Psych: Affect: normal affect Insight: Good insight present (Psych) Judgement: Good judgement present (Psych) Objective Data Vital Signs Vital Signs: Vital Signs - 24 hr 12/15/19 08:05 12/15/19 14:00 12/15/19 14:42 Temperature 36.6 C Pulse Rate 90 95 90 Respiratory Rate 20 18 20 Blood Pressure 133/82 Pulse Oximetry 93 93 12/15/19 22:00 12/15/19 22:03 12/15/19 22:45 Temperature 36.4 C Pulse Rate 90 90 90 Respiratory Rate 16 20 20 Blood Pressure 128/73 Pulse Oximetry 96 96 12/16/19 06:00 Temperature 36.6 C Pulse Rate 89 Respiratory Rate 16 Blood Pressure 134/82 Pulse Oximetry 95 Intake/Output Intake/Output: Intake & Output 12/13/19 12/14/19 12/15/19 12/16/19 23:59 23:59 23:59 23:59 Intake Total 3152 2280 3170 1320 Output Total 850 1135 803 Balance 2302 1145 2367 1320 Meds/Results Medications: Active Medications Generic Name Dose Route Start Last Admin Trade Name Freq PRN Reason Stop Dose Admin Albuterol 5 mg 12/03/19 20:00 12/16/19 05:34 Albuterol Sulf Neb 2.5mg/0
[2019-12-16 08:50] VITALS: PULSE 94; RESP 16; O2SAT 96
[2019-12-16] MEDS: ENOXAPARIN 40 MG/0.4 ML SYRINGE SUB-Q (08:50)
[2019-12-16] MEDS: FAMOTIDINE 20 MG/2 ML VIAL IV PUSH ×2 (08:50→21:24)
[2019-12-16 11:39] LABS: Glucose Point of Care 126 (65-105)
--- NOTE | 2019-12-16 11:55 | PCDIET ---
Nutrition Follow-Up Complete: Nutrition Diagnosis: Inadequate oral intake r/t SBO as evidence by md notes (JONATHAN) and need for PPN to meet needs temporarily Nutrition Goal: Advance diet as tolerated to low fiber within five days with intakes of 75% or greater Goal in progress. Diet has been advanced to full liquid. Patient reports only having tried clear liquids so far, but is tolerating well. Reviewed options on full liquid diet and encouraged small, frequent meals. Patient declined oral supplements at this time. Patient continues on Clinimix E @ 60mL/hr with 20% lipid x 250mL daily. Agree with continued Clinimix until diet advanced and patient taking >50% of meals. Last recorded weight is 62.6 kg which is stable. Bowel Motility: BM x 7 recorded on 12/15/19. Labs Reviewed: Glu (123), BUN (21), Cr (0.5), Alb (3.2), TG (95) Meds Noted: Aspart, Zosyn Additional Notes: Right sacrum with percutaneous drain. No documented pressure sores. Will continue to monitor with same goal. Nutrition Monitoring and Evaluation: Follow up every Sunday/Sunday.
--- NOTE | 2019-12-16 13:57 | P.PNIM_ITS ---
Progress Note: A&P Assessment and Plan (1) Diverticulitis large intestine: Qualifiers: Diverticulitis bleeding: without bleeding Diverticulitis complication: with perforation Qualified Code(s): K57.20 - Diverticulitis of large intestine with perforation and abscess without bleeding Code(s): K57.32 - Diverticulitis of large intestine without perforation or abscess wi thout bleeding Status: Inactive Assessment and Plan: * with perforation, and now with abscess, IR placed drain 12/11 * Day 7 zosyn( researching MAR and previous meds it appears pt only received zosyn in ER! and now back on ) * Likely ileus resolving with partial obstruction also as seen on SBF today * TPN started 12/09 and albumin 3.7 today * Surgery clamping tube and tolerating clear liquids started 12/13 * KUB 2/ still distended small bowel and seen on SBF today too * 2/4 NG out in AM. Tolerating full liquids. F/u KUB (2) Right lower lobe pneumonia: Qualifiers: Pneumonia type: due to unspecified organism Qualified Code(s): J18.9 - Pneumonia, unspecified organism Code(s): J18.9 - Pneumonia, unspecified organism Status: Resolved Assessment and Plan: * 10 days Zithromax completed & day 8 of Zosyn( d/c azithromycin 12/12) * Clinically improved * minimal cough (3) Pneumoperitoneum: Code(s): K66.8 - Other specified disorders of peritoneum Status: Resolved Assessment and Plan: * Due to diverticulitis * Attempting conservative management (4) Impaired glucose tolerance: Code(s): R73.02 - Impaired glucose tolerance (oral) Status: Acute Assessment and Plan: * Fam Hx diabetes (sister) * 12/04 D/w pt need for diabetic diet and increased activity when clinically able * Monitor sugars in the mean time * 12/05 FBS 118 * 12/06 FBS 115 * 12/07 FBS 117 * 12/08 FBS 120 * 12/09 FBS 138, A1c only 6.2 * 12/10 FBS 139 again * 12/11 FBS 140 even with TPN * 12/16 BS remains under 200 with TPN (5) Hypokalemia: Code(s): E87.6 - Hypokalemia Status: Acute Assessment and Plan: * 12/05 added KCL to IVF * 12/06 K 4.0 * 12/07 4.5 * 12/08 4.3 * 12/09 3.9 resolved (6) DVT prophylaxis: Code(s): Z29.9 - Encounter for prophylactic measures, unspecified Status: Acute Assessment and Plan: Lovenox per surgery Subjective Date/time seen: 12/16/19 13:57 Interval history: Bowels moving. No pain. No n/v. No bloating. No bleeding. Review of Systems Review of Systems: All systems reviewed & are unremarkable except as noted in HPI and below Exam Narrative: Exam Narrative: HEENT: EOMI, NECK: No JVD or bruits CHEST: clear now HEART: NL S1/S2, regular, no murmur ABDOMEN: Bowel sounds still decreased, less protuberant soft, non tender, no guarding EXTREMITIES: No cyanosis, edema, or clubbing NEUROLOGIC: CN intact and symmetric to inspection PSYCH: Alert. Oriented to person, place, and time. Objective Data Vital Signs Vital Signs: Vital Signs - 24 hr 12/15/19 14:00 12/15/19 14:42 12/15/19 22:00 Temperature 97.9 F 97.6 F Pulse Rate 95 90 90 Respiratory Rate 18 20 16 Blood Pressure 133/82 128/73 Pulse Oximetry 93 96 12/15/19 22:03 12/15/19 22:45 12/16/19 06:00 Temperature 97.9 F Pulse Rate 90 90 89 Respiratory Rate 20 20 16 Blood Pressure 134/82 Pulse Ox
--- NOTE | 2019-12-16 13:57 | PM.IMPN ---
Progress Note: A&P Assessment and Plan (1) Diverticulitis large intestine: Qualifiers: Diverticulitis bleeding: without bleeding Diverticulitis complication: with perforation Qualified Code(s): K57.20 - Diverticulitis of large intestine with perforation and abscess without bleeding Code(s): K57.32 - Diverticulitis of large intestine without perforation or abscess without bleeding Status: Inactive Assessment and Plan: with perforation, and now with abscess, IR placed drain 12/11 Day 7 zosyn( researching MAR and previous meds it appears pt only received zosyn in ER! and now back on ) Likely ileus resolving with partial obstruction also as seen on SBF today TPN started 12/09 and albumin 3.7 today Surgery clamping tube and tolerating clear liquids started 12/13 KUB / still distended small bowel and seen on SBF today too 2/4 NG out in AM. Tolerating full liquids. F/u KUB (2) Right lower lobe pneumonia: Qualifiers: Pneumonia type: due to unspecified organism Qualified Code(s): J18.9 - Pneumonia, unspecified organism Code(s): J18.9 - Pneumonia, unspecified organism Status: Resolved Assessment and Plan: 10 days Zithromax completed & day 8 of Zosyn( d/c azithromycin 12/12) Clinically improved minimal cough (3) Pneumoperitoneum: Code(s): K66.8 - Other specified disorders of peritoneum Status: Resolved Assessment and Plan: Due to diverticulitis Attempting conservative management (4) Impaired glucose tolerance: Code(s): R73.02 - Impaired glucose tolerance (oral) Status: Acute Assessment and Plan: Fam Hx diabetes (sister) 12/04 D/w pt need for diabetic diet and increased activity when clinically able Monitor sugars in the mean time 12/05 FBS 118 12/06 FBS 115 12/07 FBS 117 12/08 FBS 120 12/09 FBS 138, A1c only 6.2 12/10 FBS 139 again 12/11 FBS 140 even with TPN 12/16 BS remains under 200 with TPN (5) Hypokalemia: Code(s): E87.6 - Hypokalemia Status: Acute Assessment and Plan: 12/05 added KCL to IVF 12/06 K 4.0 12/07 4.5 12/08 4.3 12/09 3.9 resolved (6) DVT prophylaxis: Code(s): Z29.9 - Encounter for prophylactic measures, unspecified Status: Acute Assessment and Plan: Lovenox per surgery Subjective Date/time seen: 12/16/19 13:57 Interval history: Bowels moving. No pain. No n/v. No bloating. No bleeding. Review of Systems Review of Systems: All systems reviewed & are unremarkable except as noted in HPI and below Exam Narrative: Exam Narrative: HEENT: EOMI, NECK: No JVD or bruits CHEST: clear now HEART: NL S1/S2, regular, no murmur ABDOMEN: Bowel sounds still decreased, less protuberant soft, non tender, no guarding EXTREMITIES: No cyanosis, edema, or clubbing NEUROLOGIC: CN intact and symmetric to inspection PSYCH: Alert. Oriented to person, place, and time. Objective Data Vital Signs Vital Signs: Vital Signs - 24 hr 12/15/19 14:00 12/15/19 14:42 12/15/19 22:00 Temperature 97.9 F 97.6 F Pulse Rate 95 90 90 Respiratory Rate 18 20 16 Blood Pressure 133/82 128/73 Pulse Oximetry 93 96 12/15/19 22:03 12/15/19 22:45 12/16/19 06:00 Temperature 97.9 F Pulse Rate 90 90 89 Respiratory Rate 20 20 16 Blood Pressure 134/82 Pulse Oximetry 96 95 Intake/Output Intake/Output: Intake & Output 12/13/19 12/14/19 12/15/19 12/16/19 23:59 23:59 23:59 23:59 Intake Total 3152 2280 3170 1880 Output Total 850 1135 803 55 Balance 2302 1145 2367 1825 Meds/Results Medications: Active Medications Generic Name Dose Route Start Last Admin Trade Name Freq PRN Reason Stop Dose Admin Albuterol 5 mg 12/16/19 09:39 Albuterol Sulf Neb 2.5mg/0.5ml INHALATION Q6HRT PRN Shortness Of Breath Or Wheezing Enoxaparin Sodium 40 mg 12/04/19 09:00 12/16/19 08:50 Lovenox SUB-Q 40 mg DAILY DINESH Administration Famotidine 20 mg 12/08
[2019-12-16 14:00] VITALS: BP 130/77; PULSE 93; RESP 16; TEMP 36.6; O2SAT 96
[2019-12-16 17:31] LABS: Glucose Point of Care 119 (65-105)
[2019-12-16] MEDS: FAT EMULSIONS IV 20% 250 ML 20.8 ML IVPB (18:26)
[2019-12-16 21:40] VITALS: BP 143/66; PULSE 90; RESP 15; TEMP 36.1; O2SAT 97
[2019-12-17 00:30] LABS: Glucose Point of Care 83 (65-105)
[2019-12-17 05:19] LABS: Glucose Point of Care 145 (65-105)
[2019-12-17 05:28] LABS: Hematocrit 32.3 % (37.0-47.0); Hemoglobin 10.6 g/dL (12.0-15.0); Mean Corpuscular HGB Conc 32.8 g/dl (32-36); Mean Corpuscular Hemoglobin 32.3 pg (26-34); Mean Corpuscular Volume 98.5 fl (80-100); Mean Platelet Volume 8.5 fl (7.4-10.4); Platelet Count Result 754 k/mm3 (150-375); Red Blood Count 3.28 M/mm3 (4.2-5.4); Red Cell Distribution Width 12.6 % (11.5-14.5); White Blood Count 6.4 K/mm3 (4.5-10.0)
[2019-12-17] MEDS: metroNIDAZOLE 500 MG/ISO 100ML 500 MG/100 ML BAG 100 MG IVPB ×2 (05:34→11:09)
[2019-12-17 06:00] VITALS: BP 133/75; PULSE 90; RESP 16; TEMP 36.3; O2SAT 97
[2019-12-17 06:34] LABS: Blood Urea Nitrogen 15 mg/dL (7-17); Calcium 8.6 mg/dL (8.4-10.2); Carbon Dioxide 25 mmol/L (22-30); Chloride 105 mmol/L (98-107); Estimated CRCL calculation 76 ml/min; Estimated Glomerular Filt Rate > 60; Glucose 139 mg/dL (65-105); Potassium 3.9 mmol/L (3.4-5.0); Sodium 139 mmol/L (137-145)
[2019-12-17] MEDS: ENOXAPARIN 40 MG/0.4 ML SYRINGE SUB-Q (09:34)
[2019-12-17] MEDS: FAMOTIDINE 20 MG/2 ML VIAL IV PUSH (09:35)
--- NOTE | 2019-12-17 11:16 | PM.PNGS ---
Progress Note: A&P Assessment and Plan (1) Small intestine obstruction: Code(s): K56.609 - Unspecified intestinal obstruction, unspecified as to partial versus complete obstruction Status: Acute Assessment and Plan: Patient tolerated full liquids quite well. She had several bowel movements and no abdominal pain nausea vomiting. She has no abdominal distention and normal bowel sounds. White blood cell count remained normal. KUB, while read as persistent small-bowel obstruction, does show much more colon gas than previous films have shown and I feel is more consistent with resolution than a persistent small-bowel obstruction. Discussed with Dr. Randhawa. We will go ahead and advance her to a soft diet. I will discontinue her TPN. If tolerates this well, may possibly go home tomorrow. (2) Diverticulitis of large intestine with abscess without bleeding: Code(s): K57.20 - Diverticulitis of large intestine with perforation and abscess without bleeding Status: Acute Assessment and Plan: Has had 14 days of IV antibiotics. Will DC Zosyn and metronidazole. Probably continue Cipro and metronidazole orally for another week. may be able to remove pigtail catheter tomorrow as output is quite low and drain content looks more serous to me now. (3) Protein-calorie malnutrition, moderate: Code(s): E44.0 - Moderate protein-calorie malnutrition Status: Acute Assessment and Plan: DC TPN. Will run D10 W for about 8 hours to avoid hypoglycemia. (4) Right lower lobe pneumonia: Qualifiers: Pneumonia type: due to unspecified organism Qualified Code(s): J18.9 - Pneumonia, unspecified organism Code(s): J18.9 - Pneumonia, unspecified organism Status: Resolved Assessment and Plan: resolved. Azithromycin stopped. (5) Leukocytosis, unspecified: Code(s): D72.829 - Elevated white blood cell count, unspecified Status: Resolved Assessment and Plan: Normal white count yesterday and again today. Subjective Subjective Date/Time Seen: 12/17/19 11:16 Patient reports: no new complaints, tolerating liquids well, bowel movement and afebrile Review of Systems Review of Systems: All systems reviewed & are unremarkable except as noted in HPI and below Constitutional: Constitutional: Denies headache(s) ENT: Denies headache(s) Cardiovascular: Cardiovascular: Denies chest pain and Denies dyspnea Respiratory: Respiratory: Denies cough and Denies dyspnea Gastrointestinal: Gastrointestinal: Reports as per HPI Neurologic: Denies confusion and Denies headache(s) Psychiatric: Psychiatric: Denies confusion Exam Const: General: comfortable and no acute distress; No confusion Orientation/consciousness: patient oriented x3 and No confusion Resp: Effort & Inspection: normal respiratory effort Auscultation: clear to auscultation bilaterally Cardio: Rate: regular rate Rhythm: regular rhythm GI: Inspection: non-distended and other (Minimal output from pigtail drain, looks more serous.) GI Palp: Yes Soft to palpation, No Tenderness to palpation present (GI), No Guarding due to palpation present (GI) and No Rebound tenderness present Auscultation: normal bowel sounds Neuro: General: patient oriented x3, no focal motor deficits and No confusion Extrem: General: no calf tenderness and no edema Psych: Affect: normal affect Insight: Good insight present (Psych) Judgement: Good judgement present (Psych) Objective Data Vital Signs Vital Signs: Vital Signs - 24 hr 12/16/19 14:00 12/16/19 21:40 12/17/19 06:00 Temperature 36.6 C 36.1 C L 36.3 C L Pulse Rate 93 90 90 Respiratory Rate 16 15 16 Blood Pressure 130/77 143/66 H 133/75 Pulse Oximetry 96 97 97 Intake/Output Intake/Output: Intake & Output 12/14/19 12/15/19 12/16/19 12/17/19 23:59 23:59 23:59 23:59 Intake Total 2280 3170 2780 2445 Output Total 1135 803 55 400 Balance
[2019-12-17 12:27] LABS: Glucose Point of Care 133 (65-105)
--- NOTE | 2019-12-17 13:18 | P.PNIM_ITS ---
Progress Note: A&P Assessment and Plan (1) Diverticulitis large intestine: Qualifiers: Diverticulitis bleeding: without bleeding Diverticulitis complication: with perforation Qualified Code(s): K57.20 - Diverticulitis of large intestine with perforation and abscess without bleeding Code(s): K57.32 - Diverticulitis of large intestine without perforation or abscess wi thout bleeding Status: Inactive Assessment and Plan: * with perforation, and now with abscess, IR placed drain 12/11 * Likely ileus resolving with partial obstruction also as seen on SBF today * TPN started 12/09 and albumin 3.7 today * Surgery clamping tube and tolerating clear liquids started 12/13 * KUB 12/14 still distended small bowel and seen on SBF today too * 2/ NG out in AM. Tolerating full liquids * 12/17 diet advanced, switch to cipro/flagyl, likely home 12/18, d/w Dr. Cabrera (2) Right lower lobe pneumonia: Qualifiers: Pneumonia type: due to unspecified organism Qualified Code(s): J18.9 - Pneumonia, unspecified organism Code(s): J18.9 - Pneumonia, unspecified organism Status: Resolved Assessment and Plan: * mild bothersom cough (3) Pneumoperitoneum: Code(s): K66.8 - Other specified disorders of peritoneum Status: Resolved Assessment and Plan: * Due to diverticulitis * Attempting conservative management (4) Impaired glucose tolerance: Code(s): R73.02 - Impaired glucose tolerance (oral) Status: Acute Assessment and Plan: * Fam Hx diabetes (sister) * 12/04 D/w pt need for diabetic diet and increased activity when clinically able * Monitor sugars in the mean time * 12/05 FBS 118 * 12/06 FBS 115 * 12/07 FBS 117 * 12/08 FBS 120 * 12/09 FBS 138, A1c only 6.2 * 12/10 FBS 139 again * 12/11 FBS 140 even with TPN * BS remains under 200 (5) Hypokalemia: Code(s): E87.6 - Hypokalemia Status: Acute Assessment and Plan: * 12/05 added KCL to IVF * 12/06 K 4.0 * 12/07 4.5 * 12/08 4.3 * 12/09 3.9 resolved (6) DVT prophylaxis: Code(s): Z29.9 - Encounter for prophylactic measures, unspecified Status: Acute Assessment and Plan: Lovenox Subjective Date/time seen: 12/17/19 13:18 Interval history: Tolerating diet. Bowels moving. No pain. No n/v. No bloating. No bleeding. Review of Systems Review of Systems: All systems reviewed & are unremarkable except as noted in HPI and below Exam Narrative: Exam Narrative: HEENT: EOMI, NECK: No JVD or bruits CHEST: clear now HEART: NL S1/S2, regular, no murmur ABDOMEN: Bowel sounds +, less protuberant soft, nontender, no guarding EXTREMITIES: No cyanosis, edema, or clubbing NEUROLOGIC: CN intact and symmetric to inspection PSYCH: Alert. Oriented to person, place, and time. Objective Data Vital Signs Vital Signs: Vital Signs - 24 hr 12/16/19 14:00 12/16/19 21:40 12/17/19 06:00 Temperature 97.9 F 97 F L 97.3 F L Pulse Rate 93 90 90 Respiratory Rate 16 15 16 Blood Pressure 130/77 143/66 H 133/75 Pulse Oximetry 96 97 97 Intake/Output Intake/Output: Intake & Output 12/14/19 12/15/19 12/16/19 12/17/19 23:59 23:59 23:59 23:59 Intake Total 2280 3170 2780 2808 Output Total 1135 803 55 400 Balance 1145 1377 5266 6909 Meds/Results Medications: Active
--- NOTE | 2019-12-17 13:18 | PM.IMPN ---
Progress Note: A&P Assessment and Plan (1) Diverticulitis large intestine: Qualifiers: Diverticulitis bleeding: without bleeding Diverticulitis complication: with perforation Qualified Code(s): K57.20 - Diverticulitis of large intestine with perforation and abscess without bleeding Code(s): K57.32 - Diverticulitis of large intestine without perforation or abscess without bleeding Status: Inactive Assessment and Plan: with perforation, and now with abscess, IR placed drain 12/11 Likely ileus resolving with partial obstruction also as seen on SBF today TPN started 12/09 and albumin 3.7 today Surgery clamping tube and tolerating clear liquids started 12/13 KUB 12/14 still distended small bowel and seen on SBF today too 2/4 NG out in AM. Tolerating full liquids 12/17 diet advanced, switch to cipro/flagyl, likely home 12/18, d/w Dr. Cabrera (2) Right lower lobe pneumonia: Qualifiers: Pneumonia type: due to unspecified organism Qualified Code(s): J18.9 - Pneumonia, unspecified organism Code(s): J18.9 - Pneumonia, unspecified organism Status: Resolved Assessment and Plan: mild bothersom cough (3) Pneumoperitoneum: Code(s): K66.8 - Other specified disorders of peritoneum Status: Resolved Assessment and Plan: Due to diverticulitis Attempting conservative management (4) Impaired glucose tolerance: Code(s): R73.02 - Impaired glucose tolerance (oral) Status: Acute Assessment and Plan: Fam Hx diabetes (sister) 12/04 D/w pt need for diabetic diet and increased activity when clinically able Monitor sugars in the mean time 12/05 FBS 118 12/06 FBS 115 12/07 FBS 117 12/08 FBS 120 12/09 FBS 138, A1c only 6.2 12/10 FBS 139 again 12/11 FBS 140 even with TPN BS remains under 200 (5) Hypokalemia: Code(s): E87.6 - Hypokalemia Status: Acute Assessment and Plan: 12/05 added KCL to IVF 12/06 K 4.0 12/07 4.5 12/08 4.3 12/09 3.9 resolved (6) DVT prophylaxis: Code(s): Z29.9 - Encounter for prophylactic measures, unspecified Status: Acute Assessment and Plan: Lovenox Subjective Date/time seen: 12/17/19 13:18 Interval history: Tolerating diet. Bowels moving. No pain. No n/v. No bloating. No bleeding. Review of Systems Review of Systems: All systems reviewed & are unremarkable except as noted in HPI and below Exam Narrative: Exam Narrative: HEENT: EOMI, NECK: No JVD or bruits CHEST: clear now HEART: NL S1/S2, regular, no murmur ABDOMEN: Bowel sounds +, less protuberant soft, nontender, no guarding EXTREMITIES: No cyanosis, edema, or clubbing NEUROLOGIC: CN intact and symmetric to inspection PSYCH: Alert. Oriented to person, place, and time. Objective Data Vital Signs Vital Signs: Vital Signs - 24 hr 12/16/19 14:00 12/16/19 21:40 12/17/19 06:00 Temperature 97.9 F 97 F L 97.3 F L Pulse Rate 93 90 90 Respiratory Rate 16 15 16 Blood Pressure 130/77 143/66 H 133/75 Pulse Oximetry 96 97 97 Intake/Output Intake/Output: Intake & Output 12/14/19 12/15/19 12/16/19 12/17/19 23:59 23:59 23:59 23:59 Intake Total 2280 3170 2780 2808 Output Total 1135 803 55 400 Balance 1149 0943 7659 0487 Meds/Results Medications: Active Medications Generic Name Dose Route Start Last Admin Trade Name Freq PRN Reason Stop Dose Admin Acetaminophen 500 mg 12/17/19 11:05 Tylenol Tablet PO Q6H PRN Mild Pain (1-3) or Fever Hydrocodone Bitart/Acetaminophen 1 tab 12/17/19 11:05 [place] 5-325 Mg PO Q4H PRN Pain Rated 4-6 Hydrocodone Bitart/Acetaminophen 1 tab 12/17/19 11:05 [place] 7.5-325 Mg PO Q4H PRN Pain Rated 7-10 Albuterol 5 mg 12/16/19 09:39 Albuterol Sulf Neb 2.5mg/0.5ml INHALATION Q6HRT PRN Shortness Of Breath Or Wheezing Ciprofloxacin 500 mg 12/17/19 21:00 Cipro Po PO Q12HR [facility] Enoxaparin Sodium 40 mg
[2019-12-17] MEDS: DEXTROSE 10% 1,000 ML 80 ML IV CONT (13:39)
[2019-12-17 14:00] VITALS: BP 152/60; PULSE 68; RESP 16; TEMP 36.8; O2SAT 100
[2019-12-17] MEDS: metroNIDAZOLE 250 MG TABLET 500 MG PO ×2 (15:56→21:00)
[2019-12-17 18:04] LABS: Glucose Point of Care 99 (65-105)
[2019-12-17 18:56] LABS: Triglycerides 109 mg/dL (<150)
[2019-12-17] MEDS: CIPROFLOXACIN 500 MG TAB PO (20:55)
[2019-12-17] MEDS: FAMOTIDINE 20 MG TABLET PO (20:55)
[2019-12-17 21:37] VITALS: BP 115/69; PULSE 91; RESP 16; TEMP 36.5; O2SAT 97
[2019-12-17 23:40] LABS: Glucose Point of Care 110 (65-105)
[2019-12-18] MEDS: DEXTROSE 10% 1,000 ML 80 ML IV CONT (02:34)
[2019-12-18 04:46] VITALS: BP 130/81; PULSE 89; RESP 16; TEMP 37; O2SAT 98
[2019-12-18] MEDS: metroNIDAZOLE 250 MG TABLET 500 MG PO (06:22)
[2019-12-18 06:27] LABS: Hematocrit 32.9 % (37.0-47.0); Hemoglobin 10.8 g/dL (12.0-15.0); Mean Corpuscular HGB Conc 32.8 g/dl (32-36); Mean Corpuscular Hemoglobin 32.2 pg (26-34); Mean Corpuscular Volume 98.2 fl (80-100); Mean Platelet Volume 8.6 fl (7.4-10.4); Platelet Count Result 767 k/mm3 (150-375); Red Blood Count 3.35 M/mm3 (4.2-5.4); Red Cell Distribution Width 12.7 % (11.5-14.5); White Blood Count 5.6 K/mm3 (4.5-10.0)
[2019-12-18 06:30] LABS: Glucose Point of Care 130 (65-105)
[2019-12-18 06:43] LABS: Alanine Aminotransferase 43 U/L (4-35); Albumin Level 3.1 g/dL (3.5-5.1); Alkaline Phosphatase 84 U/L (38-126); Aspartate Amino Transferase 31 U/L (14-36); Bilirubin,Total 0.3 mg/dL (0.2-1.3); Blood Urea Nitrogen 10 mg/dL (7-17); Calcium 8.8 mg/dL (8.4-10.2); Carbon Dioxide 25 mmol/L (22-30); Chloride 100 mmol/L (98-107); Estimated CRCL calculation 93 ml/min; Estimated Glomerular Filt Rate > 60; Glucose 130 mg/dL (65-105); Magnesium 1.9 mg/dL (1.6-2.3); Potassium 3.8 mmol/L (3.4-5.0); Sodium 136 mmol/L (137-145)
[2019-12-18 08:00] VITALS: PULSE 89; RESP 16; O2SAT 98
[2019-12-18] MEDS: FAMOTIDINE 20 MG TABLET PO (08:16)
[2019-12-18] MEDS: ENOXAPARIN 40 MG/0.4 ML SYRINGE SUB-Q (08:16)
[2019-12-18] MEDS: CIPROFLOXACIN 500 MG TAB PO (08:16)
--- NOTE | 2019-12-18 08:21 | PM.PNGS ---
Progress Note: A&P Assessment and Plan (1) Small intestine obstruction: Code(s): K56.609 - Unspecified intestinal obstruction, unspecified as to partial versus complete obstruction Status: Resolved Assessment and Plan: despite pretested and small bowel dilatation on plain films, clinically patient has resolved small-bowel obstruction. Will go ahead and discharge her today if okay with Dr. Irwin. She can go home on low-fiber diet. I would like to keep her on ciprofloxacin and metronidazole for another 6 days. I will see her in the office next week. (2) Diverticulitis of large intestine with abscess without bleeding: Code(s): K57.20 - Diverticulitis of large intestine with perforation and abscess without bleeding Status: Resolved Assessment and Plan: Pigtail catheter drained nothing yesterday. Very little to 2 previous days. I removed the pigtail catheter this morning. Continue oral antibiotics as above. (3) Protein-calorie malnutrition, moderate: Code(s): E44.0 - Moderate protein-calorie malnutrition Status: Resolved Assessment and Plan: Tolerating oral intake. Will DC PICC line. Subjective Subjective Date/Time Seen: 12/18/19 08:21 No new complaints. Patient continues to have bowel movements. No nausea vomiting or abdominal pain at all. Review of Systems Review of Systems: All systems reviewed & are unremarkable except as noted in HPI and below ( HPI) Exam GI: Inspection: non-distended GI Palp: Yes Soft to palpation and No Tenderness to palpation present (GI) Auscultation: normal bowel sounds Objective Data Vital Signs Vital Signs: Vital Signs - 24 hr 12/17/19 14:00 12/17/19 21:37 12/18/19 04:46 Temperature 36.8 C 36.5 C 37.0 C Pulse Rate 68 91 89 Respiratory Rate 16 16 16 Blood Pressure 152/60 H 115/69 130/81 Pulse Oximetry 100 97 98 Intake/Output Intake/Output: Intake & Output 12/15/19 12/16/19 12/17/19 12/18/19 23:59 23:59 23:59 23:59 Intake Total 3170 2780 3747 961 Output Total 803 55 800 250 Balance 2367 9063 7793 711 Meds/Results Medications: Active Medications Generic Name Dose Route Start Last Admin Trade Name Freq PRN Reason Stop Dose Admin Acetaminophen 500 mg 12/17/19 11:05 Tylenol Tablet PO Q6H PRN Mild Pain (1-3) or Fever Hydrocodone Bitart/Acetaminophen 1 tab 12/17/19 11:05 [place] 5-325 Mg PO Q4H PRN Pain Rated 4-6 Hydrocodone Bitart/Acetaminophen 1 tab 12/17/19 11:05 [place] 7.5-325 Mg PO Q4H PRN Pain Rated 7-10 Albuterol 5 mg 12/16/19 09:39 Albuterol Sulf Neb 2.5mg/0.5ml INHALATION Q6HRT PRN Shortness Of Breath Or Wheezing Ciprofloxacin 500 mg 12/17/19 21:00 12/18/19 08:16 Cipro Po PO 500 mg Q12HR DINESH Administration Enoxaparin Sodium 40 mg 12/04/19 09:00 12/18/19 08:16 Lovenox SUB-Q 40 mg DAILY DINESH Administration Famotidine 20 mg 12/17/19 21:00 12/18/19 08:16 Pepcid PO 20 mg Q12HR DINESH Administration Dextrose 1,000 mls @ 80 mls/hr 12/17/19 12:35 12/18/19 02:34 Dextrose 10% IV CONT 80 mls/hr .[id number] DINESH Administration Insulin Aspart 0 units 12/08/19 18:00 12/18/19 06:26 SUB-Q Not Given Q6HR [facility] Protocol Ipratropium [place] 0.5 mg 12/16/19 09:39 Atrovent Neb INHALATION Q6HRT PRN Shortness Of Breath Or Wheezing Metronidazole 500 mg 12/17/19 14:00 12/18/19 06:22 Flagyl PO 500 mg Q8HR DINESH Administration Morphine Sulfate 2 mg 12/03/19 17:03 12/05/19 09:46 Morphine Sulfate Inj IV PUSH 2 mg Q2H PRN Administration Pain Rated 4-6 Morphine Sulfate 4 mg 12/03/19 17:03 12/04/19 05:59 Morphine Sulfate Inj IV PUSH 4 mg Q2H PRN Administration Pain Rated 7-10 Naloxone HCl 0.1 mg 12/03/19 17:03 Narcan IV PUSH Q2M PRN Opiate Reversal Ondansetron HCl 4 mg 12/03/19 17:03 12/08/19 17:22 Zofran Inj IV PUSH 4 mg
--- NOTE | 2019-12-18 10:21 | PM.DS ---
DS: Diagnosis Admitting Diagnosis Admitting Diagnosis: Diverticulitis of intestine, part unspecified, without perforation or abscess without bleeding Discharge Diagnosis (1) Right lower lobe pneumonia: Qualifiers: Pneumonia type: due to unspecified organism Qualified Code(s): J18.9 - Pneumonia, unspecified organism Code(s): J18.9 - Pneumonia, unspecified organism Status: Resolved Assessment and Plan: mild bothersom cough (2) Pneumoperitoneum: Code(s): K66.8 - Other specified disorders of peritoneum Status: Resolved Assessment and Plan: Due to diverticulitis Attempting conservative management (3) Impaired glucose tolerance: Code(s): R73.02 - Impaired glucose tolerance (oral) Status: Acute Assessment and Plan: Fam Hx diabetes (sister) 12/04 D/w pt need for diabetic diet and increased activity when clinically able Monitor sugars in the mean time 12/05 FBS 118 12/06 FBS 115 12/07 FBS 117 12/08 FBS 120 12/09 FBS 138, A1c only 6.2 12/10 FBS 139 again 12/11 FBS 140 even with TPN BS remains under 200 (4) Hypokalemia: Code(s): E87.6 - Hypokalemia Status: Acute Assessment and Plan: 12/05 added KCL to IVF 12/06 K 4.0 12/07 4.5 12/08 4.3 12/09 3.9 resolved (5) DVT prophylaxis: Code(s): Z29.9 - Encounter for prophylactic measures, unspecified Status: Acute Assessment and Plan: Lovenox DS: Summary Hospital Course Reason for hospitalization: Abdominal pain Hospital Course: Patient presented December 03 with lower abdominal pain. CT revealed free air in the peritoneum with evidence for diverticular disease and right lower lobe pneumonia. She was treated with IV Zosyn and Zithromax and bowel rest. She developed increased bloating with possible bowel obstruction on KUB. CT abdomen pelvis December 11 revealed developing abscess in the pelvis. CT-guided drainage catheter was placed December 12. Antibiotics were continued. She was tolerating her diet but again experience bloating and vomiting. Nasogastric tube was placed. Upper GI with small-bowel follow-through showed no evidence of bowel obstruction. NG tube was removed and she tolerated advancement of diet. She was transition to p.o. Cipro and Flagyl. She was up and about without difficulty with stable vital signs alert and oriented person place and time on the day of discharge. She had no chest pain or shortness of breath and no GI or complaints and no abnormal bleeding. Time Spent with Patient Time attestation: Total time spent providing and/or coordinating discharge services: 35 min Exam Narrative: Exam Narrative: HEENT: EOMI, NECK: No JVD or bruits CHEST: clear now HEART: NL S1/S2, regular, no murmur ABDOMEN: Bowel sounds +, less protuberant soft, nontender, no guarding EXTREMITIES: No cyanosis, edema, or clubbing NEUROLOGIC: CN intact and symmetric to inspection PSYCH: Alert. Oriented to person, place, and time. DS: Data Data Completed and Pending Labs on day of discharge: Labs from last 24 hours 12/18/19 12/18/19 12/18/19 06:21 06:13 06:13 WBC 5.6 RBC 3.35 L Hgb 10.8 L Hct 32.9 L MCV 98.2 MCH 32.2 MCHC 32.8 RDW 12.7 Plt Count 767 H MPV 8.6 Sodium 136 L Potassium 3.8 Chloride 100 Carbon Dioxide 25 BUN 10 D Creatinine 0.40 L Estim Creat Clear Calc 93 Estimated GFR > 60 Glucose 130 H POC Capillary Glucose 130 H Calcium 8.8 Magnesium 1.9 Total Bilirubin 0.3 AST 31 ALT 43 H Alkaline Phosphatase 84 Total Protein 6.0 L Albumin 3.1 L Triglycerides 12/17/19 12/17/19 12/17/19 23:37 18:34 17:55 WBC RBC Hgb Hct MCV MCH MCHC RDW Plt Count MPV Sodium Potassium Chloride Carbon Dioxide BUN Creatinine Estim Creat Clear Calc Estimated GFR Glucose POC Capillary Glucose 110 99 C
[2019-12-18] MEDS: NEOMYCIN/POLYMYXIN/BACITRACIN OINTMENT PACKET 1 PACKET TOPICAL (11:42)
== END 2019-12-18 12:25 | disposition home or self-care (01) | DRG 391 ==
LOC: ANHED 16:38 → ANH3MED 18:33
PROVIDERS: Emergency Medicine; Family Medicine; Radiology Diagnostic Radiology; Surgery; Admitting Provider Internal Medicine; Emergency Provider Emergency Medicine; PCP Family Medicine; Visit Provider Internal Medicine
PROC: 0W9J30Z Drainage of Pelvic Cavity with Drainage Device, Percutaneous Approach (ICD-10-PCS; principal; 2019-12-11 14:00)
DX: K57.20 Diverticulitis of large intestine with perforation and abscess without bleeding (principal); J18.9 Pneumonia, unspecified organism; E44.0 Moderate protein-calorie malnutrition; K56.7 Ileus, unspecified; Z68.24 Body mass index [BMI] 24.0-24.9, adult; K66.8 Other specified disorders of peritoneum; R73.02 Impaired glucose tolerance (oral); E87.6 Hypokalemia; D72.829 Elevated white blood cell count, unspecified; M19.042 Primary osteoarthritis, left hand; M19.041 Primary osteoarthritis, right hand; M19.072 Primary osteoarthritis, left ankle and foot; M19.071 Primary osteoarthritis, right ankle and foot; Z90.710 Acquired absence of both cervix and uterus; Z87.891 Personal history of nicotine dependence
CPT/HCPCS: 36415; 36569; 71045; 74018; 74177; 74240; 74248; 75989; 80048; 80053; 81001; 83036; 83605; 83690; 83735; 84100; 84466; 84478; 84484; 85025; 85027; 85610; 85730; 86140; 87070; 87075; 87076; 87077; 87186; 87205; 93005; 94640; 96365; 96367; 96375; 99285; A9270; C1751; C1769; J0456; J1335; J1650; J1741; J2250; J2270; J2405; J2543; J3010; J3480; J7030; Q9967

== ENCOUNTER 2020-01-28 11:08 | Outpatient (CLI) | payer MEDICARE, SELFPAY ==
--- NOTE | ~2020-01-28 | MM_ITS ---
EXAMINATION: MM screening [facility] BI w [facility] HISTORY: Screening mammogram TECHNIQUE: Craniocaudal and mediolateral oblique 3-D tomosynthesis images were obtained and synthetic 2-D images were generated. CAD analysis was submitted and interpreted. COMPARISON: Comparison to multiple prior studies sequentially, with oldest reviewed study dated 09/13. BREAST PARENCHYMAL COMPOSITION: There are scattered areas of fibroglandular density. FINDINGS: There is no evidence of suspicious mass, calcification, or architectural distortion to sugg est malignancy in either breast. There has been no suspicious interval change. IMPRESSION: 1. No mammographic evidence of malignancy. 2. Recommend routine screening mammography in one year. BI-RADS Category 1: Negative Reviewed, dictated and finalized at location D.
== END 2020-01-28 11:09 | disposition home or self-care (01) ==
PROVIDERS: PCP Family Medicine; Visit Provider Obstetrics & Gynecology
DX: Z12.31 Encounter for screening mammogram for malignant neoplasm of breast (principal)
CPT/HCPCS: 77063; 77067

== ENCOUNTER 2020-03-29 11:57 | Outpatient (CLI) | payer MEDICARE, SELFPAY | END 2020-03-29 11:58 | disposition home or self-care (01) | LOC: ANHSURGERY 12:00 | PROVIDERS: PCP Family Medicine; Visit Provider Surgery | DX: Z01.818 Encounter for other preprocedural examination (principal); K57.92 Diverticulitis of intestine, part unspecified, without perforation or abscess without bleeding | CPT/HCPCS: 36415; 86850; 86900; 86901 ==

== ENCOUNTER 2020-04-05 00:13 | Outpatient (CLI) | payer MEDICARE, SELFPAY ==
[2020-04-05 16:10] LABS: SARS-CoV-2 RNA PCR Negative
== END 2020-04-05 00:14 | disposition home or self-care (01) ==
LOC: ANHCOVIDDT 00:13
PROVIDERS: PCP Family Medicine; Visit Provider Surgery
DX: Z01.818 Encounter for other preprocedural examination (principal); Z11.59 Encounter for screening for other viral diseases; K57.32 Diverticulitis of large intestine without perforation or abscess without bleeding
CPT/HCPCS: 87635; C9803; U0003

== ENCOUNTER 2020-04-07 14:17 | Inpatient (IN) | payer MEDICARE, SELFPAY ==
[2020-03-29 12:18] VITALS: BMI 22.4
[2020-04-07] VITALS (22 sets, daily range): BP systolic 129–185; BP diastolic 78–94; PULSE 59–82; RESP 10–20; TEMP 36.2–36.7; O2SAT 92–100
[2020-04-07] MEDS: ALVIMOPAN 12 MG CAPSULE PO (06:15)
--- NOTE | 2020-04-07 06:41 | PM.IMHP ---
H&P: HPI History of Present Illness Chief complaint: Sigmoid diverticulitis Narrative: Alysha Silva is a 64 year old female who presented December 03, 2019 with severe acute sigmoid diverticulitis and free intraperitoneal air. She also had right lower lobe infiltrate and was diagnosed with pneumonia. Her course was complicated by development of a pelvic abscess which had to be drained with image guided percutaneous catheter drainage. She also developed a small-bowel obstruction which resolved with NG suction and IV fluids. She was eventually able to be discharged on December 18. Since that time she has done well. She had a negative colonoscopy in 2010 other than diverticulosis. She was seen in the office on several occasions after discharge. After discussion, she prefers to proceed with hand access laparoscopic sigmoidectomy at this time. Review of Systems Review of Systems: All systems reviewed & are unremarkable except as noted in HPI and below Constitutional: Constitutional: Denies headache(s) ENT: Denies headache(s) Cardiovascular: Cardiovascular: Denies chest pain and Denies dyspnea Respiratory: Respiratory: Denies cough and Denies dyspnea Gastrointestinal: Gastrointestinal: Denies bloating, Denies constipation and Denies nausea Neurologic: Denies confusion and Denies headache(s) Psychiatric: Psychiatric: Denies confusion PMFSH Past Medical History Medical History Arthritis hands and feet Epistaxis Hallux rigidus rt Hammer toes, bilateral Impaired glucose tolerance Surgical History Surgical History H/O breast biopsy H/O tubal ligation H/O: hysterectomy History of bladder suspension procedure Hx of breast implants, bilateral with removal Hx of colonoscopy Hx of foot surgery rt foot Family History Family History Mother Hypertension Cerebrovascular accident Family history of transient ischemic attacks Family history of arthritis Family history of kidney disease Family history of aortic aneurysm Father Carcinoma of colon Family history of lung cancer Acute myocardial infarction Sibling Diabetes mellitus Family history of chronic obstructive pulmonary disease Family history of congestive heart failure Social History Social History Smoking status: Former smoker Second hand tobacco smoke exposure: No Smoking end date: 11/12/82 Alcohol intake: current Drinks per week: 5 Substance use: never Gender identity (if verbalized by the patient): Female Spiritual care concerns: No Agree to blood products: Yes Meds Home Medications and Allergies Home Medications Medication Instructions Recorded Confirmed Type erythromycin 500 mg tablet 1,000 mg PO .COMPLEX #6 tablet 01/07/20 03/29/20 Rx neomycin 500 mg tablet See Rx Instructions .ROUTE 01/07/20 03/29/20 Rx .COMPLEX #6 tablet acetaminophen [Tylenol Arthritis 650 mg PO Q12H PRN 03/29/20 03/29/20 History Pain] ascorbic acid-vitamin E-biotin 1 tablet PO DAILY 03/29/20 03/29/20 History [Hair, Skin, Nails with Biotin] fluticasone propionate [Flonase 1 spray INTRANASAL BID PRN 03/29/20 03/29/20 History Allergy Relief] loratadine [Claritin] 10 mg PO DAILY PRN 03/29/20 03/29/20 History Allergies Allergy/AdvReac Type Severity Reaction Status Date / Time No Known Allergies Allergy Verified 03/29/20 12:11 Exam Const: General: cooperative, comfortable, no acute distress, alert and awake; No confusion Orientation/consciousness: No confusion HENMT: Head: normocephalic, atraumatic, no contusions and no scalp lesions Ears: external ears normal General nose exam: Normal external nose present Face and sinus: face symmetric and dry mucous membranes Mouth: Yes Normal oral and palatal mu
[2020-04-07] MEDS: LACTATED RINGERS 1,000 ML 30 ML IV CONT ×2 (06:45→11:59)
[2020-04-07] MEDS: IBUPROFEN IV 800 MG/200 ML 800 MG/200 ML BAG 400 MG IVPB (07:00)
--- NOTE | 2020-04-07 07:07 | WPDANESEPPF ---
Anes - Initial Pre Proc Eval Procedure: Operation Date: 04/07/20 07:30 Proposed Procedures p Hand Assisted Laparoscopic Sigmoidectomy - Erickson Cabrera MD Date/Time: 04/07/20 07:07 Surgeon: Erickson Cabrera MD Pre Op Diagnosis: Sigmoid diverticulitis Patient Data Age: 64 Gender: F Height: 5 ft 4 in Weight: 59.2 kg Allergies Allergy/AdvReac Type Severity Reaction Status Date / Time No Known Allergies Allergy Verified 03/29/20 12:11 Home Medications Medication Instructions Recorded Confirmed Type erythromycin 500 mg tablet 1,000 mg PO .COMPLEX #6 tablet 01/07/20 03/29/20 Rx neomycin 500 mg tablet See Rx Instructions .ROUTE 01/07/20 03/29/20 Rx .COMPLEX #6 tablet acetaminophen [Tylenol Arthritis 650 mg PO Q12H PRN 03/29/20 03/29/20 History Pain] ascorbic acid-vitamin E-biotin 1 tablet PO DAILY 03/29/20 03/29/20 History [Hair, Skin, Nails with Biotin] fluticasone propionate [Flonase 1 spray INTRANASAL BID PRN 03/29/20 03/29/20 History Allergy Relief] loratadine [Claritin] 10 mg PO DAILY PRN 03/29/20 03/29/20 History Patient hx anesthesia problems: none Family hx anesthesia problems: none PMFSH Past Medical History Medical History Arthritis hands and feet Epistaxis Hallux rigidus rt Hammer toes, bilateral Impaired glucose tolerance Surgical History Surgical History H/O breast biopsy H/O tubal ligation H/O: hysterectomy History of bladder suspension procedure Hx of breast implants, bilateral with removal Hx of colonoscopy Hx of foot surgery rt foot Family History Family History Mother Hypertension Cerebrovascular accident Family history of transient ischemic attacks Family history of arthritis Family history of kidney disease Family history of aortic aneurysm Father Carcinoma of colon Family history of lung cancer Acute myocardial infarction Sibling Diabetes mellitus Family history of chronic obstructive pulmonary disease Family history of congestive heart failure Social History Social History Smoking status: Former smoker Second hand tobacco smoke exposure: No Smoking end date: 11/12/82 Alcohol intake: current Drinks per week: 5 Substance use: never Gender identity (if verbalized by the patient): Female Spiritual care concerns: No Agree to blood products: Yes Anes - Eval Final PreProcedure Day of Procedure 04/07/20 07:07 Patient weight: normal Heart: regular rate and rhythm Lungs: clear to auscultation Airway: Mallampati scale class II Neurological: alert and oriented Last oral intake: >/= 8 hours ASA classification: II Emergent: no Anesthetic plan: proceed Anesthesia type and monitoring: general ETT and standard monitoring Informed Consent: The patient's anesthetic plan and its attendant risks and benefits were discussed with the patient/family/POA. Questions were solicited and answers provided to the satisfaction of the patient/family/POA.
[2020-04-07] MEDS: ceFAZolin 2 GM/D5W 50 ML 2 GM/50 ML BAG IVPB (07:42)
[2020-04-07] MEDS: metroNIDAZOLE 500 MG/ISO 100ML 500 MG/100 ML BAG 100 MG IVPB (07:55)
[2020-04-07] MEDS: BUPIVACAINE/EPINEPHRINE 0.5% 30 ML VIAL INFILTRATE (08:41)
[2020-04-07] MEDS: HYDROMORPHONE HCL 1 MG/ML INJ 0.5 MG IV PUSH ×4 (13:28→13:57)
--- NOTE | 2020-04-07 15:56 | PM.PROC ---
Procedure Note - Detailed Date of procedure: 04/07/20 Pre-op diagnosis: diverticulitis Sigmoid diverticulitis Post-op diagnosis: same Procedure performed: Hand access laparoscopic sigmoid colon resection with hand-sewn colorectal anastomosis Description of procedure: The patient was taken to surgery and induced into general anesthesia. She was placed in lithotomy with Mateo stirrups. Michelle catheter was placed. Rectal irrigation and rectal tube were placed. The abdomen was prepped and draped. The proposed incision for the hand access port was marked in the lower abdominal midline just above the pubis. Local anesthesia was infiltrated in the area of the anticipated incision. Incision was made and dissection was carried down through the subcutaneous. Crossing veins were cauterized and divided. Dissection was carried down to the midline fascia. The fascia was opened between the 2 rectus muscles. There were quite close together in this area. Dissection between the rectus muscles was carried out. The abdominal wall was elevated and a small opening was made in the peritoneum. This opening was extended the length of the wound. There were no anterior abdominal wall adhesions that I could see. The RiverWired wound guard was then positioned. The GelPort was placed. I placed a hand in the abdomen. The left sided 10 11 trocar was then placed. Local was infiltrated before the trocar was placed. After this trocar was placed, we insufflated the abdomen with CO2 and placed the camera in the abdomen. The remaining trocars were placed under direct visualization. The midline supra umbilical 10 11 port was placed next. Finally the left mid abdominal 12 mm port was placed. The patient was placed in Trendelenburg with the left side slightly elevated. We started by mobilizing the descending colon above the sigmoid. These adhesions came down fairly easily. However when we reached the sigmoid colon, it was very attached to a tubular structure which I could not definitely identify initially. I was concerned this was the ureter. I dissected out the ureter more proximally. I carefully dissected this part of the colon from these dense adhesions. Eventually I was able to divide enough peritoneum and identify the ureter to know that this was not actually ureter but was probably the round ligament. I carefully dissected the round ligament from the sigmoid colon leaving some of the colon wall with the round ligament. I was then able to further mobilize the sigmoid colon on its mesentery. I identified an area of distal descending colon that was relatively normal. I chose that as my proximal extent of resection. The Harmonic scalpel was used to divide the mesentery up to this area of distal descending colon. I then looked at the upper rectum. An area of relatively normal appearing upper rectum was identified. There were adhesions of the epiploica to the vaginal cuff. There were some small-bowel adhesions in the pelvis as well. These were also taken down. I divided the rectal mesentery up to the proximal rectum where the distal line of resection was planned. I then dissected the vascular supply to the sigmoid colon. Literally all the dissection was done with the Harmonic scalpel. The inferior mesenteric artery was dissected. A window in the mesentery distal and proximal around the inferior mesenteric artery was created. I divided the inferior mesenteric artery with an Endo OVI vascular load. This went well. No bleeding occurred from the stump of the inferior mesenteric artery. The remainder of the mesenteric attachments were divided. We then stopped insufflation and removed the GelPort. I divided some remaining mesenteric and epiploic attachments to both the proximal and distal areas of colon to be divided. The distal descending colon was divided with the TLC 75 stapler. The proximal rectum was divided with the contour stapler. The specimen of sigmoid colon was passed off to
[2020-04-07] MEDS: MORPHINE SULFATE 2 MG/ML INJ IV PUSH (15:58)
[2020-04-07] MEDS: LACTATED RINGERS 1,000 ML 100 ML IV CONT (17:15)
[2020-04-07] MEDS: ONDANSETRON INJ 4 MG/2 ML VIAL IV PUSH ×2 (18:50→22:55)
[2020-04-07] MEDS: ENOXAPARIN 30 MG/0.3 ML SYRINGE SUB-Q (20:11)
[2020-04-07] MEDS: FAMOTIDINE 20 MG/2 ML VIAL IV PUSH (20:11)
[2020-04-08] VITALS (8 sets, daily range): BP systolic 132–173; BP diastolic 67–83; PULSE 75–79; RESP 12–20; TEMP 36.3–37; O2SAT 94–99
[2020-04-08] MEDS: LACTATED RINGERS 1,000 ML 100 ML IV CONT (03:40)
[2020-04-08 06:08] LABS: Basophils Percent Auto 0.2 % (0.2-1.2); Hematocrit 38.5 % (37.0-47.0); Hemoglobin 12.9 g/dL (12.0-15.0); Immature Granulocyte Absolute 0.02 K/mm3 (0.00-0.031); Immature Granulocyte Percent A 0.2 % (0-0.5); Lymphocytes Absolute Auto 2.11 K/mm3 (0.9-3.2); Lymphocytes Percent Auto 22.5 % (18.3-44.2); Mean Corpuscular HGB Conc 33.5 g/dl (32-36); Mean Corpuscular Hemoglobin 32.5 pg (26-34); Mean Platelet Volume 8.5 fl (7.4-10.4); Monocytes Absolute Auto 0.8 K/mm3 (0.1-0.6); Monocytes Percent Auto 8.2 % (2.6-8.5); Neutrophils Absolute Auto 6.4 K/mm3 (1.3-6.7); Neutrophils Percent Auto 68.9 % (45.5-73.1); Platelet Count Result 362 k/mm3 (150-375); Red Blood Count 3.97 M/mm3 (4.2-5.4); Red Cell Distribution Width 13.2 % (11.5-14.5); White Blood Count 9.4 K/mm3 (4.5-10.0)
[2020-04-08 06:23] LABS: Blood Urea Nitrogen 8 mg/dL (7-17); Calcium 8.9 mg/dL (8.4-10.2); Carbon Dioxide 28 mmol/L (22-30); Chloride 99 mmol/L (98-107); Estimated CRCL calculation 80 ml/min; Estimated Glomerular Filt Rate > 60; Glucose 118 mg/dL (65-105); Sodium 131 mmol/L (137-145)
[2020-04-08] MEDS: ENOXAPARIN 30 MG/0.3 ML SYRINGE SUB-Q ×2 (08:24→20:06)
[2020-04-08] MEDS: ALVIMOPAN 12 MG CAPSULE PO ×2 (08:24→20:06)
[2020-04-08] MEDS: LORATADINE 10 MG TABLET PO (08:24)
--- NOTE | 2020-04-08 10:16 | PM.PNGS ---
Progress Note: A&P Assessment and Plan (1) Diverticulitis of large intestine with abscess without bleeding: Code(s): K57.20 - Diverticulitis of large intestine with perforation and abscess without bleeding Status: Chronic Assessment and Plan: Doing well POD1. Advance to full liquids today and will discontinue the IV fluids. Will start transitioning to oral pain medication and continue the OYSTER CULTURIST as needed for pain control today. Encouraged increased activity/walking in the halls and IS use. Will repeat labs tomorrow morning. Pathology pending. Additional Plan Discussed plan of care with Dr. Cabrera. Subjective Subjective Date/Time Seen: 04/08/20 10:16 Post Op day: 1 (EDITH sigmoid colon resection) Patient reports: tolerating liquids well and no flatus Interval history: Patient sitting in the chair this morning comfortably. Currently on OYSTER CULTURIST for pain control and reports this is controlling her pain well. She reports small amount of liquid stool yesterday after surgery, but since denies flatus or BM. Minimal nausea overnight without vomiting, but states this has subsided. Denies any nausea or bloating with her clear liquid tray this morning. No other complaints at this time. Review of Systems Review of Systems: All systems reviewed & are unremarkable except as noted in HPI and below Constitutional: Constitutional: Denies chills, Denies fever(s) and Denies weakness Cardiovascular: Cardiovascular: Reports no additional cardiovascular complaints, Denies chest pain, Denies leg edema and Denies lightheadedness Respiratory: Respiratory: Reports no additional respiratory complaints, Denies chest congestion and Denies dyspnea Gastrointestinal: Gastrointestinal: Reports as per HPI, Denies bloating, Denies nausea and Denies vomiting Genitourinary: Genitourinary: Denies urinary frequency and Denies dysuria Neurologic: Denies confusion and Denies headache(s) Exam Const: General: comfortable, no acute distress, alert and awake Resp: Effort & Inspection: normal respiratory effort and able to speak in complete sentences Auscultation: clear to auscultation bilaterally Cardio: Rate: regular rate Rhythm: regular rhythm GI: Inspection: non-distended and incision (Incisions clean and dry, localized bruising around midline incision) GI Palp: Yes Soft to palpation, Yes Tenderness to palpation present (GI) (incisional) and No Rebound tenderness present Auscultation: Hypoactive bowel sounds present Skin: General skin exam: normal color Neuro: General: patient oriented x3, moves all extremities and no focal motor deficits Extrem: General: full ROM and no calf tenderness Psych: Affect: normal affect Thought process: Normal thought process present Insight: Good insight present (Psych) Objective Data Vital Signs Vital Signs: Vital Signs - 24 hr 04/07/20 11:59 04/07/20 12:14 04/07/20 12:15 Temperature 36.2 C L Pulse Rate 62 63 64 Respiratory Rate 10 L 16 15 Blood Pressure 152/85 H 154/89 H 158/89 H Pulse Oximetry 100 100 98 04/07/20 12:30 04/07/20 12:45 04/07/20 13:00 Temperature Pulse Rate 64 62 64 Respiratory Rate 12 12 14 Blood Pressure 163/88 H 150/86 H 164/88 H Pulse Oximetry 94 92 100 04/07/20 13:15 04/07/20 13:30 04/07/20 13:45 Temperature Pulse Rate 69 67 71 Respiratory Rate 14 14 13 Blood Pressure 153/87 H 175/92 H 171/93 H Pulse Oximetry 100 100 100 04/07/20 14:00 04/07/20 14:13 04/07/20 14:25 Temperature 36.2 C L Pulse Rate 69 60 59 L Respiratory Rate 13 14 20 Blood Pressure 171/93 H 151/79 H 168/87 H Pulse Oximetry 100 100 98 04/07/20 14:40 04/07/20 15:10 04/07/20 16:06 Temperature Pulse Rate 71 68 71 Respiratory Rate 18 18 16 Blood Pressure 161/78 H 185/94 H 171/80 H Pulse Oximetry 99 100 100 04/07/20 17:41 04/07/20 19:00 04/07/20 20:00 Temperature 36.3 C L 36.7 C 36.2 C L Pulse Rate 69 75 73 Respiratory Rate 16 16 12 Blood Pressure 165/81 H 169/94 H 165/94 H
[2020-04-08] MEDS: LACTATED RINGERS 1,000 ML 30 ML IV CONT (13:55)
[2020-04-08] MEDS: FAMOTIDINE 20 MG/2 ML VIAL IV PUSH ×2 (14:56→20:06)
--- NOTE | 2020-04-08 20:00 | PC.NURSE ---
PAPER COATING SUPERVISOR cont;d without diffuculty. Respirations even and unlabored. no S&S of adverse reactions noted. Monitoring closely.
--- NOTE | 2020-04-08 22:10 | PC.NURSE ---
General condition remains unchanged. Patient has not used BUSINESS CONTINUITY PLANNING DIRECTOR thus far. Respirations even and unlabored. No S&S of adverse reaction r/t Morphine BUSINESS CONTINUITY PLANNING DIRECTOR noted. Continue to monitor closely.
--- NOTE | 2020-04-09 | PC.NURSE ---
Respirations even and unlabored. No S&S of adverse reactions r/t Morphine TECHNOLOGY INTERNSHIP noted. No use of TECHNOLOGY INTERNSHIP thus far. Monitoring closely.
[2020-04-09 02:00] VITALS: BP 133/71; PULSE 81; RESP 16; TEMP 37.1; O2SAT 92
--- NOTE | 2020-04-09 02:00 | PC.NURSE ---
Resting quietly in bed without distress. Respirations even and unlabored. No use of SENIOR ENGINEERING TEAM LEADER thus far.
--- NOTE | 2020-04-09 04:00 | PC.NURSE ---
No change in condition/respiratory status noted. Respirations even and unlabored.Patient has not used Morphine MEDICAL RECORDS ASSISTANT so far this shift. States that she does not want to use it unless her PO medication is not helping, but that her pain is well managed with current PO medication and is satisfied with current pain management regimen.
[2020-04-09 05:46] LABS: Hemoglobin 12.7 g/dL (12.0-15.0); Mean Corpuscular HGB Conc 34.3 g/dl (32-36); Mean Corpuscular Hemoglobin 33.5 pg (26-34); Mean Corpuscular Volume 97.6 fl (80-100); Mean Platelet Volume 8.3 fl (7.4-10.4); Platelet Count Result 302 k/mm3 (150-375); Red Blood Count 3.79 M/mm3 (4.2-5.4); Red Cell Distribution Width 13.2 % (11.5-14.5); White Blood Count 6.9 K/mm3 (4.5-10.0)
[2020-04-09 05:57] LABS: Blood Urea Nitrogen 5 mg/dL (7-17); Calcium 8.6 mg/dL (8.4-10.2); Carbon Dioxide 32 mmol/L (22-30); Chloride 100 mmol/L (98-107); Estimated CRCL calculation 80 ml/min; Estimated Glomerular Filt Rate > 60; Glucose 100 mg/dL (65-105); Potassium 3.6 mmol/L (3.4-5.0); Sodium 135 mmol/L (137-145)
[2020-04-09 06:00] VITALS: BP 143/85; PULSE 80; RESP 16; TEMP 36.7; O2SAT 93
--- NOTE | 2020-04-09 06:00 | PC.NURSE ---
Respirations even and unlabored. No use of Morphine HAND PACKAGER this shift.
[2020-04-09] MEDS: ENOXAPARIN 30 MG/0.3 ML SYRINGE SUB-Q (08:14)
[2020-04-09] MEDS: FAMOTIDINE 20 MG/2 ML VIAL IV PUSH (08:14)
[2020-04-09] MEDS: LORATADINE 10 MG TABLET PO (08:14)
[2020-04-09] MEDS: ALVIMOPAN 12 MG CAPSULE PO (08:14)
[2020-04-09 08:30] VITALS: O2SAT 94
--- NOTE | 2020-04-09 09:53 | PM.DS ---
DS: Admitting Diagnosis Admitting Diagnosis Admitting Diagnosis: Diverticulitis of intestine, part unspecified, without perforation or abscess without bleeding DS: Discharge Diagnosis Discharge Diagnosis (1) Diverticulitis of large intestine with abscess without bleeding: Code(s): K57.20 - Diverticulitis of large intestine with perforation and abscess without bleeding Status: Chronic DS: Summary Time Spent with Patient Time attestation: Total time spent providing and/or coordinating discharge services: Patient is a 64-year-old woman who in late November presented with right lower lobe pneumonia and free intraperitoneal air. She was diagnosed with diverticulitis and developed a pelvic abscess. This was further complicated by a small-bowel obstruction. Her abscess was drained percutaneously and resolved. Her small-bowel obstruction eventually resolved. She was able to be discharged on December 18. She improved after her discharge and after discussion agreed to proceed with hand access laparoscopic sigmoidectomy for diverticulitis. She underwent home bowel preparation and was taken to surgery on April 07, 2020. She underwent hand access laparoscopic sigmoidectomy with hand-sewn colorectal anastomosis. The surgery went well. She was gradually advanced in her diet. She was comfortable on oral analgesics and ambulating. Her wounds were healing well. Pathology showed diverticulosis with chronic diverticulitis and pericolonic abscesses. She was able to be discharged on postop day 2. 04/09/2020 in good condition. DS: Data Data Completed and Pending Completed studies during hospitalization: Pending at discharge 04/07/20 10:15 Surgical [PTH] Routine Labs on day of discharge: Labs from last 24 hours 04/09/20 04/09/20 05:17 05:17 WBC 6.9 RBC 3.79 L Hgb 12.7 Hct 37.0 MCV 97.6 MCH 33.5 MCHC 34.3 RDW 13.2 Plt Count 302 MPV 8.3 Sodium 135 L Potassium 3.6 Chloride 100 Carbon Dioxide 32 H BUN 5 L Creatinine 0.50 L Estim Creat Clear Calc 80 Estimated GFR > 60 Glucose 100 Calcium 8.6 Discharge Plan Discharge Attending physician on discharge: Erickson Cabrera Discharging Clinician: Erickson Cabrera Anticipated Discharge Date/Time: 04/09/20 13:00 Patient Disposition: Home, Self-Care Activity: may shower, no straining and other - see discharge instructions Diet: as tolerated and regular Wound Care Instructions: incision open to air Discharge Instructions: Ambulate 3-4 x per day and as tolerated. No lifting over 15-20lbs. May bathe or shower. Stairs are OK. May drive a car in 3 days. Patient Instructions: Antibiotic Form, Pain Management (DC), Colectomy (DC) Stand Alone Forms: General Discharge Information Follow-up/Referrals: Erickson Cabrera MD [Physician] - 04/15/20 8:00 am (I believe patient already has this appointment.) Discharge Medications: New hydrocodone-acetaminophen 5-325 mg tablet 1 - 2 tablet PO Q6H PRN (Reason: pain) Qty: 20 RF: 0 ketorolac 10 mg tablet 10 mg PO Q6H 4 Days Qty: 16 RF: 0 Continued acetaminophen [Tylenol Arthritis Pain] 650 mg Tablet Extended Release 650 mg PO Q12H PRN (Reason: PAIN) RF: 0 fluticasone propionate [Flonase Allergy Relief] 50 mcg/actuation [place],Suspension 1 spray INTRANASAL BID PRN (Reason: SEASONAL ALLERGIES) RF: 0 loratadine [Claritin] 10 mg Tablet 10 mg PO DAILY PRN (Reason: SEASONAL ALLERGIES) RF: 0 Hair, Skin, Nails with Biotin 7.5-7.5-1,250 mg-unit-mcg Tablet,Chewable 1 tablet PO DAILY RF: 0 Discontinued neomycin 500 mg tablet See Rx Instructions .ROUTE .COMPLEX Qty: 6 RF: 0 erythromycin 500 mg tablet 1,000 mg PO .COMPLEX Qty: 6 RF: 0 Date of admission: 04/07/20 14:17 Primary Care Provider: Rochelle Kline Admitting Provider: Erickson Cabrera Attending physician on admission: Erickson Cabrera Condition: Sta
--- NOTE | 2020-04-09 14:59 | PC.NURSE ---
Pt discharged from facility. Pt had IV removed, discharge paperwork reviewed, and was taken to the front door per wheelchair by staff.
== END 2020-04-09 14:55 | disposition home or self-care (01) | DRG 331 ==
LOC: ANH3MEDSUR 14:48
PROVIDERS: Admitting Provider Surgery; PCP Family Medicine; Visit Provider Surgery
PROC: 0D1E4Z4 Bypass Large Intestine to Cutaneous, Percutaneous Endoscopic Approach (ICD-10-PCS; principal; 2020-04-07 07:30)
DX: K57.20 Diverticulitis of large intestine with perforation and abscess without bleeding (principal); Z79.899 Other long term (current) drug therapy; Z87.891 Personal history of nicotine dependence
CPT/HCPCS: 36415; 80048; 85025; 85027; 87635; 88307; A9270; C1729; C9803; J0131; J0690; J1170; J1650; J1741; J2250; J2270; J2405; J2704; J3010; J7030; J7120; U0003

== ENCOUNTER 2021-03-31 09:58 | Outpatient (CLI) | payer MEDICARE, SELFPAY ==
--- NOTE | ~2021-03-31 | MM_ITS ---
EXAMINATION: MM screening jarocho BI w harper HISTORY: Screening TECHNIQUE: Craniocaudal and mediolateral oblique 3-D tomosynthesis images were obtained and synthetic 2-D images were generated. CAD analysis was submitted and interpreted. COMPARISON: Comparison to multiple prior studies sequentially, with oldest reviewed study dated 10/12. BREAST PARENCHYMAL COMPOSITION: There are scattered areas of fibroglandular density. FINDINGS: Stable architectural distortion posteriorly in both breasts, consistent with previous surge ry for breast implant removal. There is no evidence of suspicious mass, calcification, or architectur al distortion to suggest malignancy in either breast. There has been no suspicious interval change. IMPRESSION: 1. No mammographic evidence of malignancy. 2. Recommend routine screening mammography in one year. BI-RADS Category 2: Benign finding(s). Reviewed, dictated and finalized at location A.
== END 2021-03-31 09:59 | disposition home or self-care (01) ==
LOC: ANHIMG 10:05
PROVIDERS: PCP Family Medicine; Visit Provider Obstetrics & Gynecology
DX: Z12.31 Encounter for screening mammogram for malignant neoplasm of breast (principal)
CPT/HCPCS: 77063; 77067

== ENCOUNTER 2021-09-26 06:40 | Outpatient (CLI) | payer MEDICARE, SELFPAY ==
[2021-09-26 07:29] LABS: Hematocrit 42.4 % (37.0-47.0); Hemoglobin 14.3 g/dL (12.0-15.0); Mean Corpuscular HGB Conc 33.7 g/dl (32-36); Mean Corpuscular Volume 100.7 fl (80-100); Mean Platelet Volume 7.9 fl (7.4-10.4); Platelet Count Result 355 k/mm3 (150-375); Red Blood Count 4.21 M/mm3 (4.2-5.4); Red Cell Distribution Width 12.3 % (11.5-14.5); White Blood Count 4.4 K/mm3 (4.5-10.0)
[2021-09-26 07:40] LABS: Alanine Aminotransferase 22 U/L (4-35); Albumin Level 4.5 g/dL (3.5-5.1); Alkaline Phosphatase 81 U/L (38-126); Anion Gap 7 mmol/L (8-16); Aspartate Amino Transferase 29 U/L (14-36); Bilirubin,Total 0.6 mg/dL (0.2-1.3); Blood Urea Nitrogen 17 mg/dL (7-17); Calcium 9.6 mg/dL (8.4-10.2); Carbon Dioxide 28 mmol/L (22-30); Chloride 103 mmol/L (98-107); Cholesterol 235 mg/dL (0-200); Estimated Glomerular Filt Rate > 60; Glucose 113 mg/dL (65-110); HDL Direct 109 mg/dL; Potassium 4.6 mmol/L (3.4-5.0); Sodium 138 mmol/L (137-145); Triglycerides 66 mg/dL (<150)
[2021-09-26 07:45] LABS: Rheumatoid Factor < 8.6 IU/ML (<12)
[2021-09-26 07:50] LABS: LDL Cholesterol Direct 99 mg/dL
[2021-09-26 12:36] LABS: Erythrocyte Sedimentation Rate 9 mm/hr (0-20)
[2021-09-29 17:07] LABS: Vitamin D 1,25 (OH)2 Total 57 pg/mL (18-72); Vitamin D2 1,25 (OH)2 <8 pg/mL; Vitamin D3 1,25 (OH)2 57 pg/mL
== END 2021-09-26 06:41 | disposition home or self-care (01) ==
LOC: ANHLAB 06:51
PROVIDERS: PCP Family Medicine; Visit Provider Physician Assistant
DX: E55.9 Vitamin D deficiency, unspecified (principal); R53.83 Other fatigue; M79.643 Pain in unspecified hand; E44.0 Moderate protein-calorie malnutrition
CPT/HCPCS: 36415; 80053; 80061; 82652; 84439; 84443; 85027; 85652; 86430; J2704

== ENCOUNTER → 2021-12-19 08:45 | Outpatient (CLI) | payer MEDICARE, SELFPAY ==
[2021-12-19 18:01] LABS: SARS-CoV-2 RNA PCR Negative
== END ==
PROVIDERS: PCP Family Medicine; Visit Provider Family Medicine
DX: J06.9 Acute upper respiratory infection, unspecified (principal); Z20.822 Contact with and (suspected) exposure to COVID-19
CPT/HCPCS: C9803; U0003; U0005

== ENCOUNTER 2022-06-16 10:06 | Outpatient (CLI) | payer MEDICARE, SELFPAY ==
--- NOTE | ~2022-06-16 | MM_ITS ---
EXAMINATION: MM screening jarocho BI w harper HISTORY: Screening TECHNIQUE: Craniocaudal and mediolateral oblique 3-D tomosynthesis images were obtained and synthetic 2-D images were generated. CAD analysis was submitted and interpreted. COMPARISON: Comparison to multiple prior studies sequentially, with oldest reviewed study dated 10/12. BREAST PARENCHYMAL COMPOSITION: Breast composed of scattered areas of fibroglandular density FINDINGS: There are developing calcifications associated with focal asymmetry in the central aspect o f the right breast posteriorly. The left breast is stable without evidence for malignancy. IMPRESSION: 1. Developing clustered indeterminate right breast calcifications with associated focal asymmetry in the posterior aspect of the right breast centrally. 2. Additional mammographic views and possible breast ultrasound are recommended. BI-RADS Category 0: Incomplete: Needs additional imaging evaluation. Reviewed, dictated and finalized at location A. IMPRESSION: 1. Developing clustered indeterminate right breast calcifications with associat ed focal asymmetry in the posterior aspect of the right breast centrally. 2. Additional mammographic views and possible breast ultrasound are recommended . BI-RADS Category 0: Incomplete: Needs additional imaging evaluation.
== END 2022-06-16 10:07 | disposition home or self-care (01) ==
LOC: ANHIMG 10:06
PROVIDERS: PCP Family Medicine; Visit Provider Obstetrics & Gynecology
DX: Z12.31 Encounter for screening mammogram for malignant neoplasm of breast (principal); R92.8 Other abnormal and inconclusive findings on diagnostic imaging of breast
CPT/HCPCS: 77063; 77067

== ENCOUNTER 2022-06-30 12:55 | Outpatient (CLI) | payer MEDICARE, SELFPAY ==
--- NOTE | ~2022-06-30 | MMUS_ITS ---
EXAMINATION: MM diagnostic jarocho RT w harper, US breast RT limited HISTORY: Developing clustered indeterminate right breast calcifications and associated focal asymmetr y in posterior central right breast reported on 06/16/2022 screening mammogram TECHNIQUE: Additional ML 3-D tomosynthesis images of the right breast were performed and synthetic 2- D images were generated. Magnification ML, MLO and CC views. CAD analysis was submitted and interpret ed. High resolution upper outer and lower-outer quadrant right breast ultrasound was performed. COMPARISON: Serial mammograms and ultrasound examinations dating back to 10/23/2016 FINDINGS: MAMMOGRAPHIC FINDINGS: Occasional benign calcifications are noted in the posterior inner mid right breast not far from midli ne, in addition to some chronic posterior central inner left breast asymmetric density. Asymmetric in creased density in this area has been present dating back to 10/23/2016. ULTRASOUND: No suspicious mass or suspicious shadowing is detected. IMPRESSION: 1. Benign findings 2. Routine annual mammographic screening is recommended BI-RADS Category 2: Benign finding(s). Reviewed, dictated and finalized at location A. IMPRESSION: 1. Benign findings 2. Routine annual mammographic screening is recommended BI-RADS Category 2: Benign finding(s).
== END 2022-06-30 12:56 | disposition home or self-care (01) ==
LOC: ANHIMG 12:56
PROVIDERS: PCP Family Medicine; Visit Provider Obstetrics & Gynecology
DX: R92.8 Other abnormal and inconclusive findings on diagnostic imaging of breast (principal)
CPT/HCPCS: 76642; 77061; 77065; G0279

== ENCOUNTER 2022-10-17 13:02 | Outpatient (CLI) | payer MEDICARE, SELFPAY ==
[2022-10-17 13:57] LABS: Influenza A QL RT-PCR Positive (Negative); Influenza B QL RT-PCR Negative (Negative); RSV RNA, RT-PCR Negative (Negative); SARS-CoV-2 RNA PCR Negative
== END 2022-10-17 13:03 | disposition home or self-care (01) ==
LOC: ANHLAB 13:04
PROVIDERS: PCP Family Medicine; Visit Provider Physician Assistant
DX: J10.1 Influenza due to other identified influenza virus with other respiratory manifestations (principal); Z20.822 Contact with and (suspected) exposure to COVID-19
CPT/HCPCS: 87637

== ENCOUNTER 2023-01-24 13:46 | Outpatient (CLI) | payer MEDICARE, SELFPAY ==
[2023-01-24 14:07] LABS: Basophils Percent Auto 0.6 % (0.2-1.2); Eosinophils Absolute Auto 0.2 K/mm3 (0-0.3); Eosinophils Percent Auto 3.7 % (0-4.4); Hematocrit 38.5 % (37.0-47.0); Immature Granulocyte Absolute 0.01 K/mm3 (0.00-0.031); Immature Granulocyte Percent A 0.2 % (0-0.5); Lymphocytes Absolute Auto 2.36 K/mm3 (0.9-3.2); Lymphocytes Percent Auto 43.5 % (18.3-44.2); Mean Corpuscular HGB Conc 33.8 g/dl (32-36); Mean Corpuscular Hemoglobin 32.4 pg (26-34); Mean Platelet Volume 8.3 fl (7.4-10.4); Monocytes Absolute Auto 0.4 K/mm3 (0.1-0.6); Neutrophils Absolute Auto 2.4 K/mm3 (1.3-6.7); Platelet Count Result 362 k/mm3 (150-375); Red Blood Count 4.01 M/mm3 (4.2-5.4); Red Cell Distribution Width 12.6 % (11.5-14.5); White Blood Count 5.4 K/mm3 (4.5-10.0)
[2023-01-24 14:17] LABS: Alanine Aminotransferase 35 U/L (6-35); Albumin Level 4.6 g/dL (3.5-5.1); Alkaline Phosphatase 81 U/L (38-126); Anion Gap 4 mmol/L (8-16); Aspartate Amino Transferase 36 U/L (14-36); Bilirubin,Total 0.6 mg/dL (0.2-1.3); Blood Urea Nitrogen 17 mg/dL (7-17); Calcium 9.7 mg/dL (8.4-10.2); Carbon Dioxide 28 mmol/L (22-30); Chloride 100 mmol/L (98-107); Cholesterol 232 mg/dL (0-200); Estimated Glomerular Filt Rate > 60; Glucose 85 mg/dL (65-110); HDL Direct 91 mg/dL; Potassium 4.2 mmol/L (3.4-5.0); Sodium 132 mmol/L (137-145); Triglycerides 74 mg/dL (<150)
[2023-01-24 14:28] LABS: LDL Cholesterol Direct 100 mg/dL
[2023-01-24 14:40] LABS: Vitamin D 25 Hydroxy 66.3 ng/mL
[2023-01-24 14:49] LABS: Erythrocyte Sedimentation Rate 14 mm/hr (0-20)
== END 2023-01-24 13:47 | disposition home or self-care (01) ==
LOC: ANHLAB 13:48
PROVIDERS: PCP Family Medicine; Visit Provider Family Medicine
DX: R53.83 Other fatigue (principal); E55.9 Vitamin D deficiency, unspecified; E78.2 Mixed hyperlipidemia; M25.541 Pain in joints of right hand; M25.542 Pain in joints of left hand
CPT/HCPCS: 36415; 80053; 80061; 82306; 84443; 85025; 85652

== ENCOUNTER 2023-03-02 14:01 | Outpatient (CLI) | payer MEDICARE, SELFPAY ==
--- NOTE | ~2023-03-02 | DEXA_ITS ---
Bone Density Report Name: NACHO FORTE Age: 67 Sex: Female Ethnicity: White Date of : 1955 Indication: postmenopausal; screening for osteoporosis; height loss; hysterectomy; Referring Provider: MONO JASMINE Study: Bone densitometry was performed. Exam Date: March 02, 2023 Accession number: [id number] Bone Density: Region BMD T-score Z-score Classification AP Spine(L1-L4) 0.985 -0.6 1.5 Normal Femoral Neck (Left) 0.597 -2.3 -0.5 Osteopenia Total Hip (Left) 0.727 -1.8 -0.3 Osteopenia Femoral Neck (Right) 0.588 -2.3 -0.6 Osteopenia Total Hip (Right) 0.697 -2.0 -0.5 Osteopenia Total Hip Mean 0.712 -1.9 -0.4 Osteopenia World Health Organization criteria for BMD impression classify patients as: Normal (T-score at or above -1.0), Osteopenia (T-score between -1.0 and -2.5), or Osteoporosis (T-score at or below -2.5). 10-year Fracture Risk(1): Major Osteoporotic Fracture 13% Hip Fracture 2.8% Reported Risk Factors: [place] (), Neck BMD=0.597, BMI=24.9 (1) FRAX(R) Version 3.08. Fracture probability calculated for an untreated patient. Fracture probability may be lower if the patient has received treatment. Clinical Information Provided by Patient: Has used the following medications: Vitamin D Has the following medical conditions: Hysterectomy Patient maximum height was 65 Menopause Age: 44 Drinks caffeinated beverages Onset of menses at age 10 Number of children 2 Impression: The patient has low bone mass, based on the Left Femoral Neck T-score. The patient has an estimated ten-year risk of hip fracture of 2.8% and an estimated ten-year risk of major fracture of 13%, based on the WHO FRAX algorithm. Discussion: BONE DENSITY IS LOW AT ONE OR MORE SKELETAL SITES. This patient's lowest T-score is low at one or more skeletal sites. It meets the World Health Organization's (WHO) criteria for ?low bone mass? (T-score between -1.0 and -2.5). The patient's 10-year risk of fracture as calculated by FRAX is less than the threshold where pharmacological therapy is recommended by the National Osteoporosis Foundation (NOF). However, all treatment decisions require clinical judgment and consideration of individual patient factors, including patient preferences, comorbidities, previous drug use, risk factors not captured in the FRAX model (e.g., frailty, falls, vitamin D deficiency, increased bone turnover, interval significant decline in bone density) and possible under or overestimation of fracture risk by FRAX. The patient should follow a healthful lifestyle (good nutrition with adequate calcium and vitamin D, and appropriate weight-bearing exercise). Follow-Up: Consider repeating this study in 2 to 3 years to reassess this patient's status, or sooner if there is some new clinical
== END 2023-03-02 14:02 | disposition home or self-care (01) ==
PROVIDERS: PCP Family Medicine; Visit Provider Family Medicine
DX: Z78.0 Asymptomatic menopausal state (principal); M85.852 Other specified disorders of bone density and structure, left thigh; M85.851 Other specified disorders of bone density and structure, right thigh
CPT/HCPCS: 77080

== ENCOUNTER 2023-04-02 01:21 | Day surgery (SDC) | payer MEDICARE, SELFPAY ==
[2023-03-16 14:19] VITALS: BMI 24.5
[2023-04-02 07:43] VITALS: BP 142/81; PULSE 70; RESP 20; TEMP 36.3; O2SAT 99
[2023-04-02] MEDS: LACTATED RINGERS 1,000 ML 150 ML IV CONT (07:55)
--- NOTE | 2023-04-02 08:30 | PM.HPGS ---
History of Present Illness History of Present Illness Consent: Risks, benefits, and alternatives have been discussed and questions answered. Patient agrees to proceed with procedure. Chief complaint: family history of colon cancer Narrative: Alysha Silva is a 67 year old female Presents for screening colonoscopy. Patient's current weight appetite bowel movements are normal. She denies abdominal pain. She has had no bleeding. Family history is significant that her father had colon cancer. Patient does have a history of perforated diverticulosis for which she underwent surgical sigmoid resection 2020. Patient presents today for neoplasia screening colonoscopy. Review of Systems Review of Systems: Review of systems noncontributory. [facility] Past Medical History Medical History (Updated 04/02/23 @ 08:32 by Gerardo Chandra MD) Arthritis hands and feet Encounter for Papanicolaou smear for cervical cancer screening Epistaxis Hallux rigidus rt Hammer toes, bilateral Hand arthritis Impaired glucose tolerance Surgical History Surgical History H/O breast biopsy H/O tubal ligation H/O: hysterectomy TOTAL ABD. Supracx Hysterectomy History of bladder suspension procedure Hx of breast implants, bilateral with removal Hx of colonoscopy Hx of foot surgery rt foot Status post laparoscopic-assisted sigmoidectomy sigmoid colon resection with hand-sewn colorectal anastomosis 04/07/20 Family History Family History Mother Hypertension Cerebrovascular accident Family history of transient ischemic attacks Family history of arthritis Family history of kidney disease Family history of aortic aneurysm Father Carcinoma of colon Family history of lung cancer Acute myocardial infarction Sibling Diabetes mellitus Family history of chronic obstructive pulmonary disease Family history of congestive heart failure Social History Social History Smoking status: Never smoker Second hand tobacco smoke exposure: No Smoking end date: 11/12/82 Alcohol intake: current Drinks per week: 7 Alcohol use details: on occaison-bottle of wine/week Substance use: never Substance use type: does not use Lack of Transportation: No Lack of Food: Never True Current Housing: I Have Housing Concerned About Future Housing: No Difficulty Paying Gas/Electric Bills: No Difficulty Paying for Meds: No Currently Unemployed: No Education: Associate Degree Difficulty w/ Childcare or Family Care: No Living arrangements: alone Additional living arrangements comments: Occupation/Education: retired 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 Gender identity (if verbalized by the patient): Female Sexual Orientation (if Verbalized by the Patient): Straight or Heterosexual Spiritual care concerns: No Agree to blood products: Yes Meds Home Medications and Allergies Home Medications Medication Instructions Recorded Confirmed Type loratadine 10 mg tablet (Claritin) 10 mg PO DAILY PRN SEASONAL 03/29/20 04/02/23 History ALLERGIES fluticasone propionate 50 1 spray intranasal BID 12/11/22 03/16/23 History mcg/actuation nasal spray,suspension (Flonase Allergy Relief) celecoxib 200 mg capsule (Celebrex) 200 mg PO DAILY #90 caps 01/29/23 03/16/23 Rx sodium,potassium,mag sulfates 17.5 See Rx Instructions PO .COMPLEX 02/28/23 03/16/23 Rx gram-3.13 gram-1.6 gram oral soln #354 mL (Suprep Bowel Prep Kit) Adults Multivitamin 1 tab-cap PO DAILY 03/16/23 03/16/23 History Vitamin D3 1 tab-cap PO DAILY 03/16/23 03/16/23 History Allergies Allergy/AdvReac Type Severity Reaction Status Date / Time No Known Allergies Allergy Verified 04/02/23 07:41 Vital Signs Vital Signs - 2
--- NOTE | 2023-04-02 08:41 | WPDANESEPPF ---
Anes - Initial Pre Proc Eval Procedure: Operation Date: 04/02/23 09:00 Proposed Procedures p Colonoscopy - Gerardo Chandra MD Date/Time: 04/02/23 08:41 Surgeon: Gerardo Chandra MD Pre Op Diagnosis: family history of colon cancer Patient Data Age: 67 Gender: F Height: 1.55 m Weight: 59.8 kg Last Vital Signs Temp 97.3 F L 04/02/23 07:43 Pulse 70 04/02/23 07:43 Resp 20 04/02/23 07:43 BP 142/81 H 04/02/23 07:43 Pulse Ox 99 04/02/23 07:43 O2 Del Method Room Air 04/02/23 07:43 Allergies Allergy/AdvReac Type Severity Reaction Status Date / Time No Known Allergies Allergy Verified 04/02/23 07:41 Home Medications Medication Instructions Recorded Confirmed Type loratadine 10 mg tablet (Claritin) 10 mg PO DAILY PRN SEASONAL 03/29/20 04/02/23 History ALLERGIES fluticasone propionate 50 1 spray intranasal BID 12/11/22 03/16/23 History mcg/actuation nasal spray,suspension (Flonase Allergy Relief) celecoxib 200 mg capsule (Celebrex) 200 mg PO DAILY #90 caps 01/29/23 03/16/23 Rx sodium,potassium,mag sulfates 17.5 See Rx Instructions PO .COMPLEX 02/28/23 03/16/23 Rx gram-3.13 gram-1.6 gram oral soln #354 mL (Suprep Bowel Prep Kit) Adults Multivitamin 1 tab-cap PO DAILY 03/16/23 03/16/23 History Vitamin D3 1 tab-cap PO DAILY 03/16/23 03/16/23 History Patient hx anesthesia problems: none Family hx anesthesia problems: none Results Review: All pre-operative results and documents have been reviewed as part of the pre-operative evaluation. [facility] Past Medical History Medical History (Updated 04/02/23 @ 08:32 by Gerardo Chandra MD) Arthritis hands and feet Encounter for Papanicolaou smear for cervical cancer screening Epistaxis Hallux rigidus rt Hammer toes, bilateral Hand arthritis Impaired glucose tolerance Surgical History Surgical History H/O breast biopsy H/O tubal ligation H/O: hysterectomy TOTAL ABD. Supracx Hysterectomy History of bladder suspension procedure Hx of breast implants, bilateral with removal Hx of colonoscopy Hx of foot surgery rt foot Status post laparoscopic-assisted sigmoidectomy sigmoid colon resection with hand-sewn colorectal anastomosis 04/07/20 Family History Family History Mother Hypertension Cerebrovascular accident Family history of transient ischemic attacks Family history of arthritis Family history of kidney disease Family history of aortic aneurysm Father Carcinoma of colon Family history of lung cancer Acute myocardial infarction Sibling Diabetes mellitus Family history of chronic obstructive pulmonary disease Family history of congestive heart failure Social History Social History Smoking status: Never smoker Second hand tobacco smoke exposure: No Smoking end date: 11/12/82 Alcohol intake: current Drinks per week: 7 Alcohol use details: on occaison-bottle of wine/week Substance use: never Substance use type: does not use Lack of Transportation: No Lack of Food: Never True Current Housing: I Have Housing Concerned About Future Housing: No Difficulty Paying Gas/Electric Bills: No Difficulty Paying for Meds: No Currently Unemployed: No Education: Associate Degree Difficulty w/ Childcare or Family Care: No Living arrangements: alone Additional living arrangements comments: Occupation/Education: retired 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
[2023-04-02 09:43] VITALS: BP 112/68; PULSE 60; RESP 22; O2SAT 97
[2023-04-02 09:53] VITALS: BP 131/71; PULSE 58; RESP 24; O2SAT 100
[2023-04-02 10:03] VITALS: BP 129/84; PULSE 59; RESP 22; O2SAT 100
== END 2023-04-02 10:14 | disposition home or self-care (01) ==
PROVIDERS: PCP Family Medicine; Visit Provider Internal Medicine Gastroenterology
PROC: 0DJD8ZZ Inspection of Lower Intestinal Tract, Via Natural or Artificial Opening Endoscopic (ICD-10-PCS; CPT 45378; principal; 2023-04-02 09:00)
DX: Z12.11 Encounter for screening for malignant neoplasm of colon (principal); D12.3 Benign neoplasm of transverse colon; Z80.0 Family history of malignant neoplasm of digestive organs; M19.049 Primary osteoarthritis, unspecified hand; M19.079 Primary osteoarthritis, unspecified ankle and foot
CPT/HCPCS: 45380; 88305; J2704; J7120

== ENCOUNTER 2023-05-03 16:00 | Outpatient (CLI) | payer MEDICARE, SELFPAY ==
[2023-05-03 16:33] LABS: Anion Gap 4 mmol/L (8-16); Blood Urea Nitrogen 20 mg/dL (7-17); Calcium 9.3 mg/dL (8.4-10.2); Carbon Dioxide 33 mmol/L (22-30); Chloride 102 mmol/L (98-107); Estimated Glomerular Filt Rate > 60; Glucose 101 mg/dL (65-110); Potassium 4.4 mmol/L (3.4-5.0); Sodium 139 mmol/L (137-145)
[2023-05-03 17:05] LABS: Sodium Urine Random 62 meq/L
[2023-05-06 18:48] LABS: Osmolality, Urine 341 mOsm/kg (50-1200)
== END 2023-05-03 16:01 | disposition home or self-care (01) ==
PROVIDERS: PCP Family Medicine; Visit Provider Physician Assistant Medical
DX: E87.6 Hypokalemia (principal)
CPT/HCPCS: 36415; 80048; 83930; 83935; 84300

== ENCOUNTER 2023-08-23 14:19 | Outpatient (CLI) | payer MEDICARE, SELFPAY ==
--- NOTE | ~2023-08-23 | MM_ITS ---
EXAMINATION: MM screening jarocho BI w harper HISTORY: Screening mammogram TECHNIQUE: Craniocaudal and mediolateral oblique 3-D tomosynthesis images were obtained and synthetic 2-D images were generated. CAD analysis was submitted and interpreted. COMPARISON: 06/30/2022 diagnostic right mammogram and limited right breast ultrasound 06/17/2022, 03/31/2021, 01/28/2020 bilateral screening mammogram examinations BREAST PARENCHYMAL COMPOSITION: There are scattered areas of fibroglandular density. FINDINGS: Stable bilateral mammographic asymmetries. Occasional bilateral benign calcifications. Ther e is no evidence of suspicious mass, calcification, or architectural distortion to suggest malignancy in either breast. There has been no suspicious interval change. IMPRESSION: 1. No mammographic evidence of malignancy. 2. Recommend routine screening mammography in one year. BI-RADS Category 2: Benign finding(s). Reviewed, dictated and finalized at location A.
== END 2023-08-23 14:20 | disposition home or self-care (01) ==
PROVIDERS: PCP Family Medicine; Visit Provider Obstetrics & Gynecology
DX: Z12.31 Encounter for screening mammogram for malignant neoplasm of breast (principal)
CPT/HCPCS: 77063; 77067

== ENCOUNTER 2024-02-11 15:48 | Outpatient (CLI) | payer MEDICARE, SELFPAY ==
--- NOTE | 2024-02-11 15:51 | ECG_ITS ---
Measurements Intervals [place] Rate: 62 P: 59 CT: 169 QRS: -29 QRSD: 89 T: 43 QT: 409 QTc: 418 Interpretive Statements SINUS RHYTHM BORDERLINE LEFT AXIS DEVIATION [QRS AXIS < -20] MINIMAL VOLTAGE CRITERIA FOR LVH, CONSIDER NORMAL VARIANT [MEETS CRITERIA IN ONE OF: R(aVL), S(V1), R(V5), R(V5/V6)+S(V1)] COMPARED TO ECG 12/03/2019 14:20:24 NO SIGNIFICANT CHANGES Electronically Signed On 02-12-2024 8:46:07 CDT by Samuel Perez M.D.
== END 2024-02-11 15:49 | disposition home or self-care (01) ==
PROVIDERS: PCP Family Medicine; Visit Provider Physician Assistant Medical
DX: I49.9 Cardiac arrhythmia, unspecified (principal)
CPT/HCPCS: 93005

== ENCOUNTER 2024-02-16 07:37 | Outpatient (CLI) | payer MEDICARE, SELFPAY ==
[2024-02-16 08:24] LABS: Alanine Aminotransferase 20 U/L (6-35); Albumin Level 4.3 g/dL (3.5-5.1); Alkaline Phosphatase 76 U/L (38-126); Anion Gap 4 mmol/L (4-12); Aspartate Amino Transferase 27 U/L (14-36); Bilirubin,Total 0.6 mg/dL (0.2-1.3); Blood Urea Nitrogen 24 mg/dL (7-17); Calcium 9.8 mg/dL (8.4-10.2); Carbon Dioxide 28 mmol/L (22-30); Chloride 106 mmol/L (98-107); Cholesterol 238 mg/dL (0-200); Estimated Glomerular Filt Rate > 60; Glucose 105 mg/dL (65-110); HDL Direct 90 mg/dL; Potassium 4.2 mmol/L (3.4-5.0); Sodium 138 mmol/L (137-145); Triglycerides 56 mg/dL (<150)
[2024-02-16 08:35] LABS: LDL Cholesterol Direct 112 mg/dL
== END 2024-02-16 07:38 | disposition home or self-care (01) ==
LOC: ANHLAB 07:39
PROVIDERS: PCP Family Medicine; Visit Provider Physician Assistant Medical
DX: E78.2 Mixed hyperlipidemia (principal)
CPT/HCPCS: 36415; 80053; 80061

== ENCOUNTER 2024-08-22 08:02 | Outpatient (CLI) | payer MEDICARE, SELFPAY ==
[2024-08-22 08:54] LABS: Basophils Percent Auto 0.5 % (0.2-1.2); Eosinophils Absolute Auto 0.3 K/mm3 (0-0.3); Hematocrit 41.2 % (37.0-47.0); Hemoglobin 13.9 g/dL (12.0-15.0); Immature Granulocyte Absolute 0.02 K/mm3 (0.00-0.031); Immature Granulocyte Percent A 0.3 % (0-0.5); Lymphocytes Absolute Auto 2.03 K/mm3 (0.9-3.2); Lymphocytes Percent Auto 32.3 % (18.3-44.2); Mean Corpuscular HGB Conc 33.7 g/dl (32-36); Mean Corpuscular Hemoglobin 33.7 pg (26-34); Mean Corpuscular Volume 99.8 fl (80-100); Mean Platelet Volume 8.9 fl (7.4-10.4); Monocytes Absolute Auto 0.4 K/mm3 (0.1-0.6); Monocytes Percent Auto 6.1 % (2.6-8.5); Neutrophils Absolute Auto 3.6 K/mm3 (1.3-6.7); Neutrophils Percent Auto 56.8 % (45.5-73.1); Platelet Count Result 379 k/mm3 (150-375); Red Blood Count 4.13 M/mm3 (4.2-5.4); Red Cell Distribution Width 12.6 % (11.5-14.5); White Blood Count 6.3 K/mm3 (4.5-10.0)
[2024-08-22 10:24] LABS: Alanine Aminotransferase 29 U/L (6-35); Albumin Level 4.1 g/dL (3.5-5.1); Alkaline Phosphatase 83 U/L (38-126); Anion Gap 7 mmol/L (4-12); Aspartate Amino Transferase 31 U/L (14-36); Bilirubin,Total 0.7 mg/dL (0.2-1.3); Blood Urea Nitrogen 19 mg/dL (7-17); Calcium 9.3 mg/dL (8.4-10.2); Carbon Dioxide 28 mmol/L (22-30); Chloride 105 mmol/L (98-107); Cholesterol 213 mg/dL (0-200); Estimated Glomerular Filt Rate > 60; Glucose 108 mg/dL (65-110); HDL Direct 97 mg/dL; Potassium 4.4 mmol/L (3.4-5.0); Sodium 140 mmol/L (137-145); Triglycerides 80 mg/dL (<150)
[2024-08-22 10:35] LABS: LDL Cholesterol Direct 80 mg/dL
== END 2024-08-22 08:03 | disposition home or self-care (01) ==
PROVIDERS: PCP Family Medicine; Visit Provider Student in an Organized Health Care Education/Training Program
DX: E78.5 Hyperlipidemia, unspecified (principal); R73.02 Impaired glucose tolerance (oral); Z00.00 Encounter for general adult medical examination without abnormal findings
CPT/HCPCS: 36415; 80053; 80061; 85025

== ENCOUNTER 2024-09-03 14:48 | Outpatient (CLI) | payer MEDICARE, SELFPAY ==
--- NOTE | ~2024-09-03 | MM_ITS ---
EXAMINATION: MM screening jarocho BI w harper HISTORY: Screening TECHNIQUE: Craniocaudal and mediolateral oblique 3-D tomosynthesis images were obtained and synthetic 2-D images were generated. CAD analysis was submitted and interpreted. COMPARISON: Comparison to multiple prior studies sequentially, with oldest reviewed study dated 01/27. BREAST PARENCHYMAL COMPOSITION: Not dense: There are scattered areas of fibroglandular density. FINDINGS: There is evidence of fat necrosis with coarse calcifications bilaterally consistent with pr ior breast implant removal. There is no evidence of suspicious mass, calcification, or architectural distortion to suggest malignancy in either breast. There has been no suspicious interval change. IMPRESSION: 1. No mammographic evidence of malignancy. 2. Recommend routine screening mammography in one year. BI-RADS Category 2: Benign finding(s). Reviewed, dictated and finalized at location B.
== END 2024-09-03 14:49 | disposition home or self-care (01) ==
LOC: ANHIMG 14:50
PROVIDERS: PCP Family Medicine; Visit Provider Obstetrics & Gynecology
DX: Z12.31 Encounter for screening mammogram for malignant neoplasm of breast (principal)
CPT/HCPCS: 77063; 77067

== ENCOUNTER 2025-02-23 07:20 | Outpatient (CLI) | payer MEDICARE, SELFPAY ==
--- OUTSIDE RECORDS SUMMARY | 2025-02-23 07:24 | XMS_ITS | Clinical Summary ---
Author Organization [facility] Address [address] [place] [address] Phone Care Team Providers Care Supervisor Extrusion Name Role Phone Ny Galvez MD Primary Care Provider [phone] Allergies No known active allergies Medications celecoxib (CeleBREX) 200 mg capsule Take 1 capsule (200 mg total) by mouth daily 4 Active azithromycin (ZITHROMAX) 250 mg tablet Take 2 tabs (500 mg) by mouth today, than 1 tab (250 mg) daily for 4 days. 6 tablet 4 Active Additional Information Patient not taking.Reported on 12/20/2024 albuterol HFA (PROVENTIL HFA,VENTOLIN HFA,PROAIR HFA) 90 mcg/actuation inhaler Inhale 2 puffs every 6 (six) hours as needed for wheezing or shortness of breath 1 each 4 Active benzonatate (TESSALON) 200 mg capsuleIndicatio ns:Acute lower respiratory infection Take 1 capsule (200 mg total) by mouth 3 (three) times a day as needed for cough keep tessalon out of reach of children, especially children under the age of 10, due to possible serious risk such as if ingested by children under the age of 10. 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 Office Visit [facility] at [address] [address] Rebecca Alicia NP Acute lower respiratory infection (Primary Dx); History of wheezing from Last 3 Months Social History Tobacco Use Types Packs/Day Years Used Date Smoking Tobacco: Never Assessed Comments Unknown Sex and Gender Information Value Date Recorded Sex Assigned at Not on file Legal Sex Female 7:00 PM CHEMICAL PROCESS OPERATOR Gender Identity Not on file Sexual Orientation Not on file Obstetrics History Last Filed Vital Signs Vital Sign Reading Time Taken Comments Blood Pressure 142/88 12/20/2024 11:35 AM CHEMICAL PROCESS OPERATOR Pulse 74 12/20/2024 11:35 AM CHEMICAL PROCESS OPERATOR Temperature 36.8 C (98.2 F) 12/20/2024 11:35 AM CHEMICAL PROCESS OPERATOR Respiratory Rate 17 12/20/2024 11:35 AM CHEMICAL PROCESS OPERATOR Oxygen Saturation 96% 12/20/2024 11:35 AM CHEMICAL PROCESS OPERATOR Inhaled Oxygen Concentration - - Weight 62.6 kg (138 lb) 12/20/2024 11:35 AM CHEMICAL PROCESS OPERATOR Height 160 cm (5' 3 ) 10/07/2023 12:49 PM CHEMICAL PROCESS OPERATOR Body Mass Index 24.45 10/07/2023 12:49 PM CHEMICAL PROCESS OPERATOR Plan of Treatment Health Maintenance Due Date Last Done Comments Breast Cancer Screening-Mammogram 1955 Colon Cancer Screening-Colonoscopy 1955 Depression Screening 1955 Fall Risk Assessment 1955 Hepatitis C Screening 1955 Osteoporosis Screening-Bone Density Scan 1955 Hepatitis B Screening 1971 Well Visit 65+ 2018 Zoster Vaccine (2 of 2) 03/23/2023 01/26/2023 Covid-19 Vaccine (2023-2 5 season) 2024 08/06/2023, 08/26/2022, 03/27/2022, Additional history exists Influenza Vaccine (#1) 2024 , 08/21/2022, 08/23/2021, Additional history exists DTaP/Tdap/Td Vaccine (2 - Td or Tdap) 08/26/2025 08/26/2015, 01/30/2006 Pneumococcal vaccine 65+ Completed 01/06/2020, 1201/2018 Insurance MEDICARE [facility] Member Subscriber Plan / Payer (Ef fective 2018-Present) Name:Alysha Silva Relation to Subscriber:Self Name:Alysha Silva Payer ID:[id number] Group ID:Not on file Type:My 1% Address: [facility] [address] [place] [address] [facility] MEDICARE ADVANTAGE Care Teams Supervisor Extrusion Relationship Specialty Start Date End Date Ny Galvez MD PCP - General Family Medicine 02/19/24
--- OUTSIDE RECORDS SUMMARY | 2025-02-23 07:24 | XMS_ITS | Clinical Summary ---
Author Organization [facility] Address [address] [address] [place] [address] Care Team Providers Care Sfdc Consultant Name Role Phone Unavailable Primary Care Provider Unavailabl e Source Comments [facility],non-owned Affiliates and Associated Physician Practices is amultiple site organization consisting of ambulatory clinics and hospital sitesin [place], [place], [place]. This disclosure is being madepursuant to the Care Everywhere program and may not contain all information available regarding this patient. 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 Gender Identity Not on file Sexual Orientation Not on file Plan of Treatment Health Maintenance Due Date Last Done Comments BONE DENSITY TESTING 1955 COLOGUARD (AGES 45-75) - COL ON CA SCREENING 1955 COLON MONITORING 1955 COLONOSCOPY - COLON CA SCREENING 1953 CT COLONOGRAPHY - COLON CA SCREENING 1955 Colorectal Cancer Screening 1955 FIT - COLON CA SCREENING 1955 FLEX SIG - COLON CA SCREENING 1955 LIPID TESTING 1955 MAMMOGRAM 1955 MEDICARE AWV 12 MONTHS 1955 HEPATITIS C SCREENING 09/23/1971 DTAP/TDAP/TD VACCINES (1 - Tdap) 1972 PNEUMOCOCCAL VACCINE 50+ (1 of 1 - PCV) 2003 ZOSTER VACCINE (1 of 2) 2003 COVID-19 VACCINE (1 - 2023-2 5 season) 2024 DEPRESSION SCREENING 11/12/2024 INFLUENZA VACCINE (Season Ended) 2025 Respiratory Syncytial Virus (RSV) Vaccine Pt: or over 60 yrs (1 - 1-dose 75+ series) 2028 HEPATITIS B VACCINE Aged Out No longe r eligible based on patient's age to complete this topic HIB VACCINE Aged Out No longer eligi ble based on patient's age to complete this topic HPV VACCINE Aged Out No longer eligi ble based on patient's age to complete this topic MENINGOCOCCAL (Group B) VACC INE SHARED DECISION-MAKING Aged Out No longer eligibl e based on patient's age to complete this topic MENINGOCOCCAL GROUPS A/C/Y/W VACCINE Aged Out No longer eligible b ased on patient's age to complete this topic Insurance [facility] MEDICARE [facility] MEDICARE [facility]
--- OUTSIDE RECORDS SUMMARY | 2025-02-23 07:24 | XMS_ITS | Referral Summary ---
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 Office Visit [facility] at [address] [address] Rebecca Alicia NP Acute lower respiratory infection (Primary Dx); History of wheezing from Last 3 Months Allergies No known active allergies Medications celecoxib [...] Active Active Problems No known active problems Social History Tobacco Use Types Packs/Day Years Used Date Smoking Tobacco: Never Assessed Comments Unknown Sex and Gender Information Value Date Recorded Sex Assigned at Not on file Legal Sex Female 7:00 PM DOUGH SCALER AND MIXER Gender Identity Not on file Sexual Orientation Not on file Last Filed Vital Signs Vital Sign Reading Time Taken Comments Blood Pressure 142/88 12/20/2024 11:35 AM DOUGH SCALER AND MIXER Pulse 74 12/20/2024 11:35 AM DOUGH SCALER AND MIXER Temperature 36.8 C (98.2 F) 12/20/2024 11:35 AM DOUGH SCALER AND MIXER Respiratory Rate 17 12/20/2024 11:35 AM DOUGH SCALER AND MIXER Oxygen Saturation 96% 12/20/2024 11:35 AM DOUGH SCALER AND MIXER Inhaled Oxygen Concentration - - Weight 62.6 kg (138 lb) 12/20/2024 11:35 AM DOUGH SCALER AND MIXER Height 160 cm (5' 3 ) 10/07/2023 12:49 PM DOUGH SCALER AND MIXER Body Mass Index 24.45 10/07/2023 12:49 PM DOUGH SCALER AND MIXER Plan of Treatment Not on [place] [address] [facility] MEDICARE ADVANTAGE Care Teams Aviation Safety Officer Relationship Specialty Start Date End Date Ny Galvez MD PCP - General Family Medicine 02/19/24
--- OUTSIDE RECORDS SUMMARY | 2025-02-23 07:24 | XMS_ITS | Clinical Summary ---
Author Organization [facility] Address [address] [place] [address] Care Team Providers Care Under Sheriff Name Role Phone Rochelle Kline MD Primary Care Provi parris Allergies No known active allergies Medications FLUZONE HIGH-DOSE 2017-, PF, 180 mcg/0.5 mL Syringe syringe TO BE ADMINISTERED BY PHARMACIST FOR IMMUNIZATION 0 8 Active PREVNAR 13, PF, 0.5 mL Syringe TO BE ADMINISTERED BY PHARMACIST FOR IMMUNIZATION 0 8 Active Active Problems Problem Noted Date Diagnosed Date Fat necrosis (segmental) of breast 12/17/2018 Foreign body reaction 12/17/2018 Sign and symptom in breast 12/10/2018 Family history of breast cancer 12/10/2018 Abnormal ultrasound of breast 11/29/2018 Abnormal mammogram of right breast 11/29/2018 Enlarged lymph nodes in armpit 11/29/2018 Social History Tobacco Use Types Packs/Day Years Used Date Smoking Tobacco: Never Smokeless Tobacco: Never Alcohol Use Standard Drinks/Week Comments Yes 0 (1 standard drink = 0.6 oz pur e alcohol) occasional Comments No Sex and Gender Information Value Date Recorded Sex Assigned at Not on file Legal Sex Female 11:13 AM YARN WEIGHER Gender Identity Not on file Sexual Orientation Not on file Last Filed Vital Signs Vital Sign Reading Time Taken Comments Blood Pressure 148/94 12/17/2018 2:27 PM YARN WEIGHER Pulse 79 12/17/2018 2:27 PM YARN WEIGHER Temperature 36.6 C (97.8 F) 12/17/2018 2:27 PM YARN WEIGHER Respiratory Rate - - Oxygen Saturation 97% 12/17/2018 2:27 PM YARN WEIGHER Inhaled Oxygen Concentration - - Weight 62.2 kg (137 lb 1.6 oz) 12/17/2018 2:27 P M YARN WEIGHER Height 158.8 cm (5' 2.5 ) 12/17/2018 2:27 PM YARN WEIGHER Body Mass Index 24.68 12/17/2018 2:27 PM YARN WEIGHER Plan of Treatment Health Maintenance Due Date Last Done Comments DTAP/TDAP/TD VACCINES (1 - Tdap) 1972 COLORECTAL SCREENING 1998 Colorectal Cancer Screening 1998 FIT-DNA Q 3 years 1998 FIT/FOBT Q 1 year 1998 Flex Sig/CT Colonography Q 5 years 1998 PNEUMOCOCCAL VACCINE 50+ YEA RS (1 of 1 - PCV) 2003 ZOSTER VACCINE (1 of 2) 2003 OSTEOPOROSIS SCREENING 2018 BREAST CANCER SCREENING 12/10/2019 12/10/19 19, 11/08/2018, 10/30/2017, Additional history exists INFLUENZA VACCINE (#1) 2024 RSV VACCINE (60+ or ) (1 - 1-dose 75+ series) 2028 Procedures Procedure Name Priority Date/Time Associated Diagnosis Comments MAMMO DIAG UNI RIGHT 3D CAIT W OR WO CAD Routine 12/10/2018 Abnormal mammogram of right breast Abnormal ultrasound of breast from Last 3 Months or Most Recently Relevant to Health Maintenance Results * MAMMO DIAG UNI RIGHT 3D CAIT W OR WO CAD (12/10/2018) Anatomical Region Laterality Modality Breast Right Mammography Betsey Alex DO MAMMO ORDERABLES Final Resu lt from Last 3 Months or Most Recently Relevant to Health Maintenance Insurance MEDICARE PART A AND B [facility] [id number] Care Teams Under Sheriff Relationship Specialty Start Date End Date Rochelle Kline MD [address] [place] [address] PCP - General Family Practice 12/17/18
[2025-02-23 07:42] LABS: Basophils Percent Auto 0.6 % (0.2-1.2); Eosinophils Absolute Auto 0.3 K/mm3 (0-0.3); Hematocrit 40.5 % (37.0-47.0); Immature Granulocyte Absolute 0.01 K/mm3 (0.00-0.031); Immature Granulocyte Percent A 0.2 % (0-0.5); Lymphocytes Absolute Auto 2.13 K/mm3 (0.9-3.2); Lymphocytes Percent Auto 39.4 % (18.3-44.2); Mean Corpuscular HGB Conc 32.1 g/dl (32-36); Mean Corpuscular Hemoglobin 31.6 pg (26-34); Mean Corpuscular Volume 98.3 fl (80-100); Mean Platelet Volume 8.5 fl (7.4-10.4); Monocytes Absolute Auto 0.5 K/mm3 (0.1-0.6); Monocytes Percent Auto 8.3 % (2.6-8.5); Neutrophils Absolute Auto 2.5 K/mm3 (1.3-6.7); Neutrophils Percent Auto 46.5 % (45.5-73.1); Platelet Count Result 338 k/mm3 (150-375); Red Blood Count 4.12 M/mm3 (4.2-5.4); Red Cell Distribution Width 12.6 % (11.5-14.5); White Blood Count 5.4 K/mm3 (4.5-10.0)
[2025-02-23 07:53] LABS: Alanine Aminotransferase 35 U/L (6-35); Albumin Level 4.3 g/dL (3.5-5.1); Alkaline Phosphatase 93 U/L (38-126); Anion Gap 6 mmol/L (4-12); Aspartate Amino Transferase 34 U/L (14-36); Bilirubin,Total 0.6 mg/dL (0.2-1.3); Blood Urea Nitrogen 16 mg/dL (7-17); Calcium 9.3 mg/dL (8.4-10.2); Carbon Dioxide 28 mmol/L (22-30); Chloride 104 mmol/L (98-107); Cholesterol 151 mg/dL (0-200); Estimated Glomerular Filt Rate > 60; Glucose 99 mg/dL (65-110); HDL Direct 81 mg/dL; Potassium 4.1 mmol/L (3.4-5.0); Sodium 138 mmol/L (137-145); Triglycerides 50 mg/dL (<150)
[2025-02-23 08:04] LABS: LDL Cholesterol Direct 50 mg/dL
== END 2025-02-23 07:21 | disposition home or self-care (01) ==
PROVIDERS: PCP Family Medicine; Visit Provider Student in an Organized Health Care Education/Training Program
DX: E78.5 Hyperlipidemia, unspecified (principal); Z00.00 Encounter for general adult medical examination without abnormal findings; R53.83 Other fatigue
CPT/HCPCS: 36415; 80053; 80061; 85025

== ENCOUNTER 2025-04-15 13:52 | Outpatient (CLI) | payer MEDICARE, SELFPAY ==
--- NOTE | ~2025-04-15 | DEXA_ITS ---
Bone Density Report Name: NACHO FORTE Age: 69 Sex: Female Ethnicity: White Date of : 1955 Indication: osteopenia; parental hip fracture; height loss; hysterectomy; Referring Provider: ROSA RODRIGUEZ Study: Bone densitometry was performed. Exam Date: April 15, 2025 Accession number: [id number] Bone Density: Region BMD T-score Z-score Classification AP Spine(L1-L4) 1.012 -0.3 1.9 Normal Femoral Neck (Left) 0.590 -2.3 -0.5 Osteopenia Total Hip (Left) 0.754 -1.5 0.0 Osteopenia Femoral Neck (Right) 0.599 -2.3 -0.4 Osteopenia Total Hip (Right) 0.735 -1.7 -0.1 Osteopenia Total Hip Mean 0.744 -1.6 -0.1 Osteopenia World Health Organization criteria for BMD impression classify patients as: Normal (T-score at or above -1.0), Osteopenia (T-score between -1.0 and -2.5), or Osteoporosis (T-score at or below -2.5). 10-year Fracture Risk(1): Major Osteoporotic Fracture 22% Hip Fracture 8.4% Reported Risk Factors: [place] (), Neck BMD=0.590, BMI=26.4, parental fracture (1) FRAX(R) Version 3.08. Fracture probability calculated for an untreated patient. Fracture probability may be lower if the patient has received treatment. Previous Exams: Region Exam Age BMD T-score BMD Change BMD Change Date g/cm2 vs Baseline vs Previous AP Spine (L1-L4) 04/15/2025 69 1.012 -0.3 0.027 (2.7%)* 0.027 (2.7%)* 03/02/2023 67 0.985 -0.6 Total Hip(Left) 04/15/2025 69 0.754 -1.5 0.027 (3.8%)* 0.027 (3.8%)* 03/02/2023 67 0.727 -1.8 Total Hip(Right) 04/15/2025 69 0.735 -1.7 0.038 (5.5%)* 0.038 (5.5%)* 03/02/2023 67 0.697 -2.0 *Denotes significance at 95% confidence level, LSC for AP Spine = 0.022 g/cm2, LSC for Total Hip = 0.027 g/cm2 Clinical Information Provided by Patient: Parent has had a hip fracture Has used the following medications: Vitamin D Has the following medical conditions: Hysterectomy Patient maximum height was 64 Menopause Age: 44 Drinks caffeinated beverages Onset of menses at age 10 Number of children 2 Impression: The patient has low bone mass, based on the Left Femoral Neck T-score. The patient has an estimated ten-year risk of hip fracture of 8.4% and an estimated ten-year risk of major fracture of 22%, based on the WHO FRAX algorithm. The patient has risk factors, including: parental hip fracture. No significant bone loss was observed. Discussion: BONE DENSITY IS LOW AT ONE OR MORE SKELETAL SITES. THE PATIENT'S BMD AND CLINICAL RISK FACTORS CONTRIBUTE TO THIS PATIENT'S HIGH RISK OF FRACTURE. This patient's lowest T-score is low at one or more skeletal sites. It meets the World Health Organization's (WHO) criteria for ?low bone mass? (T-score between -1.0 and -2.5). The patient's 10-year risk of hip fracture and 10 year risk of a major osteoporotic fracture as calculated by FRAX exceeds the threshold where pharmacological therapy is recommended by the National Osteoporosis Foundation (NOF). However, all treatment decisions require clinical judgment and consideration of individual patient factors, including patient preferences, comorbidities, previous drug use, risk factors not captured in the FRAX model (e.g., frailty, falls, vitamin D deficiency, increased bone turnover, interval significant decline in bone density) and possible under or overestimation of fracture risk by FRAX. The patient should follow a healthful lifestyle (good nutrition with adequate calcium and vitamin D, and appropriate weight-bearing exercise). Follow-Up: Consider a repeat BMD and Vertebral Fracture Assessment (VFA) exam in 2 years or sooner if medically necessary, to reassess this patient's status. Reported by: VANDANA on 04/15/2025 2:29:00 PM. Reviewed, dictated and finalized at location A.
--- OUTSIDE RECORDS SUMMARY | 2025-04-15 14:07 | XMS_ITS | Referral Summary ---
Author Organization [facility] Address [address] [place] [address] Phone Care Team Providers Care Grain Oilseed Or Pasture Farm Manager Name Role Phone Ny Galvez MD Primary Care Provider [phone] Allergies No known active allergies Medications celecoxib [...] on file Legal Sex Female 7:00 PM BOWLING PIN SETTERS INSTALLER Gender Identity Not on file Sexual Orientation Not on file Last Filed Vital Signs Vital Sign Reading Time Taken Comments Blood Pressure 142/88 12/20/2024 11:35 AM BOWLING PIN SETTERS INSTALLER Pulse 74 12/20/2024 11:35 AM BOWLING PIN SETTERS INSTALLER Temperature 36.8 C (98.2 F) 12/20/2024 11:35 AM BOWLING PIN SETTERS INSTALLER Respiratory Rate 17 12/20/2024 11:35 AM BOWLING PIN SETTERS INSTALLER Oxygen Saturation 96% 12/20/2024 11:35 AM BOWLING PIN SETTERS INSTALLER Inhaled Oxygen Concentration - - Weight 62.6 kg (138 lb) 12/20/2024 11:35 AM BOWLING PIN SETTERS INSTALLER Height 160 cm (5' 3) 10/07/2023 12:49 PM BOWLING PIN SETTERS INSTALLER Body Mass Index 24.45 10/07/2023 12:49 PM BOWLING PIN SETTERS INSTALLER Plan of Treatment Not on file Insurance MEDICARE [facility] MEDICARE ADVANTAGE Care Teams Grain Oilseed Or Pasture Farm Manager Relationship Specialty Start Date End Date Ny Galvez MD PCP - General Family Medicine 02/19/24
--- OUTSIDE RECORDS SUMMARY | 2025-04-15 14:07 | XMS_ITS | Clinical Summary ---
Author Organization [facility] Address [address] [place] [address] Care Team Providers Care Ventilating Engineer Name Role Phone Unavailable Primary Care Provider Unavailabl e Source Comments [facility],non-owned Affiliates and Associated Physician Practices is amultiple site organization consisting of ambulatory clinics and hospital sitesin [place], [place], [place] and [place]. This disclosure is being madepursuant to the Care Everywhere program and may not contain all information available regarding this patient. Last updated 18.[facility] [employer] Social History Tobacco Use Types Packs/Day Years Used Date Smoking Tobacco: Never Assessed Comments Unknown Sex and Gender Information Value Date Recorded Sex Assigned at Not on file Legal Sex Female 1:29 PM WOODEN FURNITURE POLISHER Gender Identity Not on file Sexual Orientation [...] patient's age to complete this topic Insurance [facility] MEDICARE [facility] MEDICARE [facility]
--- OUTSIDE RECORDS SUMMARY | 2025-04-15 14:07 | XMS_ITS | Clinical Summary ---
Author Organization [facility] Address [address] [place] [address] Care Team Providers Care Sr. Social Media & Mobile Manager Name Role Phone Rochelle Kline MD Primary [...] on file Legal Sex Female 11:13 AM CERTIFIED CREDIT COUNSELOR Gender Identity Not on file Sexual Orientation Not on file Last Filed Vital Signs Vital Sign Reading Time Taken Comments Blood Pressure 148/94 12/17/2018 2:27 PM CERTIFIED CREDIT COUNSELOR Pulse 79 12/17/2018 2:27 PM CERTIFIED CREDIT COUNSELOR Temperature 36.6 C (97.8 F) 12/17/2018 2:27 PM CERTIFIED CREDIT COUNSELOR Respiratory Rate - - Oxygen Saturation 97% 12/17/2018 2:27 PM CERTIFIED CREDIT COUNSELOR Inhaled Oxygen Concentration - - Weight 62.2 kg (137 lb 1.6 oz) 12/17/2018 2:27 P M CERTIFIED CREDIT COUNSELOR Height 158.8 cm (5' 2.5) 12/17/2018 2:27 PM CERTIFIED CREDIT COUNSELOR Body Mass Index 24.68 12/17/2018 2:27 PM CERTIFIED CREDIT COUNSELOR Plan of Treatment Health Maintenance Due Date [...] Maintenance Insurance MEDICARE PART A AND B [facility] [id number] Care Teams Sr. Social Media & Mobile Manager Relationship Specialty Start Date End Date Rochelle Kline MD [address] [place] [address] PCP - General Family Practice 12/17/18
--- OUTSIDE RECORDS SUMMARY | 2025-04-15 14:07 | XMS_ITS | Clinical Summary ---
Author Organization [facility] Address [address] [place] [address] Phone Care Team Providers Care Clinical Medical Assistant Name Role Phone Ny Galvez MD Primary Care Provider [phone] Allergies No known active allergies Medications celecoxib [...] on file Legal Sex Female 7:00 PM CHECK WRITER Gender Identity Not on file Sexual Orientation Not on file Obstetrics History Last Filed Vital Signs Vital Sign Reading Time Taken Comments Blood Pressure 142/88 12/20/2024 11:35 AM CHECK WRITER Pulse 74 12/20/2024 11:35 AM CHECK WRITER Temperature 36.8 C (98.2 F) 12/20/2024 11:35 AM CHECK WRITER Respiratory Rate 17 12/20/2024 11:35 AM CHECK WRITER Oxygen Saturation 96% 12/20/2024 11:35 AM CHECK WRITER Inhaled Oxygen Concentration - - Weight 62.6 kg (138 lb) 12/20/2024 11:35 AM CHECK WRITER Height 160 cm (5' 3) 10/07/2023 12:49 PM CHECK WRITER Body Mass Index 24.45 10/07/2023 12:49 PM CHECK WRITER Plan of Treatment Health Maintenance Due Date Last Done Comments Breast Cancer Screening-Mammogram 1955 Colon Cancer Screening-Colonoscopy 1955 Depression Screening 1955 Fall Risk Assessment 1955 Hepatitis C Screening 1955 Osteoporosis Screening-Bone Density Scan 1955 Hepatitis B Screening 1971 Well Visit 65+ 2018 Zoster Vaccine (2 of 2) 03/23/2023 01/26/2023 Covid-19 Vaccine (2023-2 5 season) 2024 08/06/2023, 08/26/2022, 03/27/2022, Additional history exists Influenza Vaccine (Season Ended) 2025 07/26/2023, 08/21/2022, 08/23/2021, Additional history exists DTaP/Tdap/Td Vaccine (2 - Td or Tdap) 08/26/2025 08/26/2015, 01/30/2006 Pneumococcal vaccine 65+ Completed 01/06/2020, 1201/2018 Insurance MEDICARE [facility] MEDICARE [facility] Address: [address] [address] [place] [address] Care Teams Clinical Medical Assistant Relationship Specialty Start Date End Date Ny Galvez MD PCP - General Family Medicine 02/19/24
== END 2025-04-15 13:53 | disposition home or self-care (01) ==
LOC: ANHIMG 13:53
PROVIDERS: PCP Family Medicine; Visit Provider Student in an Organized Health Care Education/Training Program
DX: M85.89 Other specified disorders of bone density and structure, multiple sites (principal)
CPT/HCPCS: 77080

== ENCOUNTER 2025-09-11 09:13 | Outpatient (CLI) | payer MEDICARE, SELFPAY ==
--- NOTE | ~2025-09-11 | MM_ITS ---
EXAMINATION: MM screening jarocho BI w harper HISTORY: Screening TECHNIQUE: Craniocaudal and mediolateral oblique 3-D tomosynthesis images were obtained and synthetic 2-D images were generated. CAD analysis was submitted and interpreted. COMPARISON: Comparison to multiple prior studies sequentially, with oldest reviewed study dated 01/28/2020. BREAST PARENCHYMAL COMPOSITION: Not dense: There are scattered areas of fibroglandular density. FINDINGS: Stable distortion and calcifications centrally in both breasts posterior third, consistent with prior implant removal. There is no evidence of suspicious mass, calcification, or architectural distortion to suggest malignancy in either breast. There has been no suspicious interval change. IMPRESSION: 1. No mammographic evidence of malignancy. 2. Recommend routine screening mammography in one year. BI-RADS Category 2: Benign finding(s). Reviewed, dictated and finalized at location C.
--- OUTSIDE RECORDS SUMMARY | 2025-09-11 09:36 | XMS_ITS | Clinical Summary ---
Author Organization [facility] Address [address] [place] [address] Phone Care Team Providers Care Ferry Terminal Supervisor Name Role Phone Ny Galvez MD Primary Care Provider [phone] Allergies No known active allergies Medications celecoxib [...] on file Legal Sex Female 7:00 PM INTERNET SALES MANAGER Gender Identity Not on file Sexual Orientation Not on file Obstetrics History Last Filed Vital Signs Vital Sign Reading Time Taken Comments Blood Pressure 142/88 12/20/2024 11:35 AM INTERNET SALES MANAGER Pulse 74 12/20/2024 11:35 AM INTERNET SALES MANAGER Temperature 36.8 C (98.2 F) 12/20/2024 11:35 AM INTERNET SALES MANAGER Respiratory Rate 17 12/20/2024 11:35 AM INTERNET SALES MANAGER Oxygen Saturation 96% 12/20/2024 11:35 AM INTERNET SALES MANAGER Inhaled Oxygen Concentration - - Weight 62.6 kg (138 lb) 12/20/2024 11:35 AM INTERNET SALES MANAGER Height 160 cm (5' 3) 10/07/2023 12:49 PM INTERNET SALES MANAGER Body Mass Index 24.45 10/07/2023 12:49 PM INTERNET SALES MANAGER Plan of Treatment Health Maintenance Due Date Last Done Comments Breast Cancer Screening-Mammogram 1955 Colon Cancer Screening-Colonoscopy 1953 Depression Screening 1953 Fall Risk Assessment 1953 Hepatitis C Screening 1953 Osteoporosis Screening-Bone Density Scan 1953 Hepatitis B Screening 1971 Well Visit 65+ 2018 Zoster Vaccine (2 of 2) 03/23/2023 01/26/2023 Covid-19 Vaccine (2024-2 6 season) 2025 08/06/2023, 08/26/2022, 03/27/2022, Additional history exists Influenza Vaccine (#1) 2025 , 08/21/2022, 08/23/2021, Additional history exists DTaP/Tdap/Td Vaccine (2 - Td or Tdap) 08/26/2025 08/26/2015, 01/30/2006 Pneumococcal vaccine 65+ Completed 01/06/2020, 1201/2018 Insurance MEDICARE [facility] MEDICARE ADVANTAGE [facility] MEDICARE Address: [address] [address] [place] [address] Care Teams Ferry Terminal Supervisor Relationship Specialty Start Date End Date Ny Galvez MD PCP - General Family Medicine 02/19/24
--- OUTSIDE RECORDS SUMMARY | 2025-09-11 09:36 | XMS_ITS | Clinical Summary ---
Author Organization [facility] Address [address] [place] [address] Care Team Providers Care Inpatient Nursing Aide Name Role Phone Rochelle Kline MD Primary [...] on file Legal Sex Female 11:13 AM WINDOWS SOFTWARE DEVELOPER Gender Identity Not on file Sexual Orientation Not on file Last Filed Vital Signs Vital Sign Reading Time Taken Comments Blood Pressure 148/94 12/17/2018 2:27 PM WINDOWS SOFTWARE DEVELOPER Pulse 79 12/17/2018 2:27 PM WINDOWS SOFTWARE DEVELOPER Temperature 36.6 C (97.8 F) 12/17/2018 2:27 PM WINDOWS SOFTWARE DEVELOPER Respiratory Rate - - Oxygen Saturation 97% 12/17/2018 2:27 PM WINDOWS SOFTWARE DEVELOPER Inhaled Oxygen Concentration - - Weight 62.2 kg (137 lb 1.6 oz) 12/17/2018 2:27 P M WINDOWS SOFTWARE DEVELOPER Height 158.8 cm (5' 2.5) 12/17/2018 2:27 PM WINDOWS SOFTWARE DEVELOPER Body Mass Index 24.68 12/17/2018 2:27 PM WINDOWS SOFTWARE DEVELOPER Plan of Treatment Health Maintenance Due Date [...] 10/30/2017, Additional history exists INFLUENZA VACCINE (#1) 2025 RSV VACCINE (60+ or ) (1 - [...] Maintenance Insurance MEDICARE PART A AND B [facility] [id number] Care Teams Inpatient Nursing Aide Relationship Specialty Start Date End Date Rochelle Kline MD [address] [place] [address] PCP - General Family Practice 12/17/18
--- OUTSIDE RECORDS SUMMARY | 2025-09-11 09:36 | XMS_ITS | Clinical Summary ---
Author Organization [facility] Address [address] [place] [address] Care Team Providers Care Title Coordinator Name Role Phone Unavailable Primary Care Provider Unavailabl e Source Comments [facility],non-owned Affiliates and Associated Physician Practices is amultiple site organization consisting of ambulatory clinics and hospital sitesin [place], [place], [place] and [place]. This disclosure is being madepursuant to the Care Everywhere program and may not contain all information available regarding this patient. Last updated 18.[facility] [employer] Social History Tobacco Use Types Packs/Day Years Used Date Smoking Tobacco: Never Assessed Comments Unknown Sex and Gender Information Value Date Recorded Sex Assigned at Not on file Legal Sex Female 1:29 PM STORE TEAM LEADER Gender Identity Not on file Sexual Orientation [...] 2003 ZOSTER VACCINE (1 of 2) 2003 DEPRESSION SCREENING 11/12/2024 COVID-19 VACCINE (1 - 2023-2 5 season) 2025 INFLUENZA VACCINE (#1) 2025 Respiratory Syncytial Virus (RSV) Vaccine Pt: [...] patient's age to complete this topic Insurance [facility] MEDICARE [facility] MEDICARE [facility]
== END 2025-09-11 09:14 | disposition home or self-care (01) ==
LOC: ANHFOHIMG 09:15
PROVIDERS: PCP Family Medicine; Visit Provider Family Medicine
DX: Z12.31 Encounter for screening mammogram for malignant neoplasm of breast (principal)
CPT/HCPCS: 77063; 77067